=== PATIENT | male | born 1965 | race African-American/Black ===

== ENCOUNTER → 2021-07-07 08:07 | Outpatient (BNVA) | payer OTHER, SELFPAY | PROVIDERS: Visit Provider Orthopaedic Surgery ==

== ENCOUNTER 2021-07-15 10:53 | Day surgery (SDC) | payer OTHER, SELFPAY ==
[2021-07-15 11:15] VITALS: BMI 33.6
[2021-07-15 11:19] VITALS: BP 164/94; PULSE 99; RESP 18; TEMP 36.6; O2SAT 99
--- NOTE | 2021-07-15 13:37 | MHC.SHP ---
Pre-Procedural Eval Section A Date of Service: 07/15/21 The patient is an INPATIENT: No Changes since office visit: No Cold of Flu in the past 2 weeks, No New Medical Problems, No Changes in Medication and No Patient answered all questions The History & Physical has been completed within 30 days and I have reviewed it.: Yes Section B Chief Complaint: Trigger fingers Allergies: Allergies Allergy/AdvReac Type Severity Reaction Status Date / Time Eoklyuy-Etj-Qsc Reductase Allergy Severe SEVERE Verified 07/07/21 08:31 Inhibitor HIVES [[id number] REDUCTASE INHIBITOR] statins Allergy Unknown hives Uncoded 07/07/21 08:31 Plan I have reviewed the history and physical and performed a pertinent physical examination on my patient. No changes have occurred unless specified.
--- NOTE | 2021-07-15 13:38 | W.PM.OPN ---
Operative Note Operative Note Date of Service: 07/15/21 Narrative: Operative Note Preop diagnosis: 1. Right index finger Trigger finger 2. Right middle finger trigger finger Postop diagnosis: 1.? Right index finger Trigger finger 2. Right middle finger trigger finger 3. Right index finger retinacular cyst Procedure: 1. Right index finger A1 ed release 2. Right middle finger A1 ed release 3. Right index finger excision of retinacular cyst Surgeon: Catherine Diaz MD Anesthesia: local block using 1% lidocaine with epinephrine Findings: 5 mm diameter retinacular cyst found on volar surface of right index finger A1 ed. No locking or catching after A1 ed release EBL: Less than 5 mL Tourniquet time: None Specimens: Right index finger mass Complications: None Disposition: Brought to recovery room in stable condition Plan: Follow-up for 7-10 days for wound check and suture removal Check pathology Indications: The patient is 56 years old, with right index and middle finger trigger fingers that have been unresponsive to nonoperative management. The risks and benefits of operative treatment including but not limited to risk of damage to blood vessels, nerves, tendons, infection, persistent pain, persistent symptoms, recurrence or possible need for additional surgery were discussed with the patient and the patient wishes to proceed with surgery. Procedure: Once consent was obtained a local block was performed in the preop area using a combination of 1% lidocaine with epinephrine. The patient was then brought back to the operating suite and placed on the operative table in supine position. A tourniquet was applied to the proximal aspect of the left upper extremity and the limb was prepped and draped in a standard surgical fashion. Once assured that we had a good block, a 1.5 cm oblique incision was made centered over the A1 ed of the left index finger .? The incision was made through the skin to the subcutaneous tissues using a #15 blade.? Careful dissection was made down to the level of the A1 ed using tenotomy scissors, with care being taken to protect the nearby neurovascular structures.? A 5 mm volar retinacular cyst was appreciated on the volar surface of the A1 ed. This was carefully mobilized from surrounding tissue, excised and placed on the back table to be sent for histopathology. A longitudinal incision was made in the A1 ed 1st using a #15 blade, then using tenotomy scissors under direct visualization.? The A1 ed was noted to be thickened.? Following our A1 ed release, we no longer saw any locking or catching of the digit with flexion and extension. Once assured that we had a good block, a 1.5 cm oblique incision was made centered over the A1 ed of the left middle finger . The incision was made through the skin to the subcutaneous tissues using a #15 blade. Careful dissection was made down to the level of the A1 ed using tenotomy scissors, with care being taken to protect the nearby neurovascular structures. A longitudinal incision was made in the A1 ed 1st using a #15 blade, then using tenotomy scissors under direct visualization. The A1 ed was noted to be thickened. Following our A1 ed release, we no longer saw any locking or catching of the digit with flexion and extension. Once satisfied with our A1 ed release the wound was copiously irrigated with normal saline and hemostasis was obtained with a brief period of local pressure. The skin edges were reapproximated with some 5.0 nylon suture material and a sterile dressing was applied. The patient appears to have tolerated the procedure well and with no complications. All digits were well vascularized at the conclusion of the case.
[2021-07-15 14:10] VITALS: BP 152/85; PULSE 68; RESP 16; TEMP 37.4; O2SAT 97
== END 2021-07-15 14:15 | disposition home or self-care (01) ==
PROVIDERS: PCP Internal Medicine Medical Oncology; Visit Provider Orthopaedic Surgery
PROC: (CPT 26055; principal; 2021-07-15 14:00)
DX: M65.321 Trigger finger, right index finger (principal); M65.331 Trigger finger, right middle finger; M67.441 Ganglion, right hand; Z88.8 Allergy status to other drugs, medicaments and biological substances
CPT/HCPCS: 26055 ×2; 26160; 88304

== ENCOUNTER → 2021-07-26 14:22 | Outpatient (BNVA) | payer OTHER, SELFPAY | PROVIDERS: PCP Internal Medicine Medical Oncology; Visit Provider Orthopaedic Surgery ==

== ENCOUNTER 2021-08-12 10:49 | Day surgery (SDC) | payer OTHER, SELFPAY ==
[2021-08-12 11:15] VITALS: BP 164/94; PULSE 79; RESP 18; TEMP 36.8; O2SAT 98; BMI 32.8
[2021-08-12] MEDS: Lidocaine HCl 1%/Epi 1:100,000 20 ML VIAL 9 ML INFILTRATI (11:36)
--- NOTE | 2021-08-12 11:51 | MHC.SHP ---
Pre-Procedural Eval Section A Date of Service: 08/12/21 The patient is an INPATIENT: No Changes since office visit: No Cold of Flu in the past 2 weeks, No New Medical Problems, No Changes in Medication and No Patient answered all questions The History & Physical has been completed within 30 days and I have reviewed it.: Yes Section B Chief Complaint: Trigger Fingers Left Allergies: Allergies Allergy/AdvReac Type Severity Reaction Status Date / Time Qngvhvd-Stm-Prk Reductase Allergy Severe SEVERE Verified 07/26/21 14:42 Inhibitor HIVES [[id number] REDUCTASE INHIBITOR] statins Allergy Unknown hives Uncoded 07/07/21 08:31 Plan I have reviewed the history and physical and performed a pertinent physical examination on my patient. No changes have occurred unless specified.
--- NOTE | 2021-08-12 11:52 | W.PM.OPN ---
Operative Note Operative Note Date of Service: 08/12/21 Narrative: Operative Note Preop diagnosis: 1. Left index finger Trigger finger 2. Left middle finger trigger finger 3. Left ring finger trigger finger Postop diagnosis: Same Procedure: 1. Left index finger A1 ed release 2. Left middle finger A1 ed release 3. Left ring finger A1 ed release Surgeon: Catherine Diaz MD Anesthesia: local block using 1% lidocaine with epinephrine Findings: No locking or catching after A1 ed releases EBL: Less than 5 mL Tourniquet time: None Specimens: None Complications: None Disposition: Brought to recovery room in stable condition Plan: Follow-up for 7-10 days for wound check and suture removal Indications: The patient is 56 years old, with left index finger, middle finger, ring finger trigger fingers that have been unresponsive to nonoperative management. The risks and benefits of operative treatment including but not limited to risk of damage to blood vessels, nerves, tendons, infection, persistent pain, persistent symptoms, recurrence or possible need for additional surgery were discussed with the patient and the patient wishes to proceed with surgery. Procedure: Once consent was obtained a local block was performed in the preop area using a combination of 1% lidocaine with epinephrine. The patient was then brought back to the operating suite and placed on the operative table in supine position. A tourniquet was applied to the proximal aspect of the left upper extremity and the limb was prepped and draped in a standard surgical fashion. Once assured that we had a good block, a 1.5 cm oblique incision was made centered over the A1 ed of the left index finger . The incision was made through the skin to the subcutaneous tissues using a #15 blade. Careful dissection was made down to the level of the A1 ed using tenotomy scissors, with care being taken to protect the nearby neurovascular structures. A longitudinal incision was made in the A1 ed 1st using a #15 blade, then using tenotomy scissors under direct visualization. The A1 ed was noted to be thickened. Following our A1 ed release, we no longer saw any locking or catching of the digit with flexion and extension. Once assured that we had a good block, a 1.5 cm oblique incision was made centered over the A1 ed of the left middle finger . The incision was made through the skin to the subcutaneous tissues using a #15 blade. Careful dissection was made down to the level of the A1 ed using tenotomy scissors, with care being taken to protect the nearby neurovascular structures. A longitudinal incision was made in the A1 ed 1st using a #15 blade, then using tenotomy scissors under direct visualization. The A1 ed was noted to be thickened. Following our A1 ed release, we no longer saw any locking or catching of the digit with flexion and extension. Once assured that we had a good block, a 1.5 cm oblique incision was made centered over the A1 ed of the left ring finger . The incision was made through the skin to the subcutaneous tissues using a #15 blade. Careful dissection was made down to the level of the A1 ed using tenotomy scissors, with care being taken to protect the nearby neurovascular structures. A longitudinal incision was made in the A1 ed 1st using a #15 blade, then using tenotomy scissors under direct visualization. The A1 ed was noted to be thickened. Following our A1 ed release, we no longer saw any locking or catching of the digit with flexion and extension. Once satisfied with our A1 ed release the wound was copiously irrigated with normal saline and hemostasis was obtained with a brief period of local pressure. The skin edges were reapproximated with some 5.0 nylon suture material and a sterile dressing was applied. The patient appears to have tolerated the procedure well and with no complications. All digits were well vascularized at the conclusion of the case.
[2021-08-12 13:15] VITALS: BP 145/90; PULSE 76; RESP 18; TEMP 36.9; O2SAT 98
== END 2021-08-12 13:35 | disposition home or self-care (01) ==
PROVIDERS: PCP Internal Medicine Medical Oncology; Visit Provider Orthopaedic Surgery
PROC: (CPT 26055; principal; 2021-08-12 12:20)
DX: M65.322 Trigger finger, left index finger (principal); M65.332 Trigger finger, left middle finger; M65.342 Trigger finger, left ring finger
CPT/HCPCS: 26055 ×3

== ENCOUNTER → 2021-08-23 11:23 | Outpatient (BNVA) | payer OTHER, SELFPAY | PROVIDERS: PCP Internal Medicine Medical Oncology; Visit Provider Orthopaedic Surgery ==

== ENCOUNTER 2021-10-04 08:04 | Outpatient (REF) | payer OTHER, SELFPAY ==
[2021-10-04 08:27] LABS: MANUAL DIFF FLAG NO
[2021-10-04 08:50] LABS: Basophils Percent Auto 0.5 % (0-2); Eosinophils Absolute Auto 0.2 X10*3/uL (0.0-0.4); Hematocrit 42.1 % (42.0-52.0); Hemoglobin 13.7 g/dl (14.0-18.0); Imm Gran Abs Auto 0.01 X10*3/uL (0.00-0.03); Imm Gran Pct Auto 0.3 % (0.0-0.4); Lymphocytes Absolute Auto 1.6 X10*3/uL (1.2-4.9); Lymphocytes Percent Auto 40.9 % (20-40); Mean Corpuscular HGB Conc 32.5 g/dl (31.0-36.0); Mean Corpuscular Hemoglobin 29.9 pg (27.0-33.0); Mean Corpuscular Volume 91.9 fL (80.0-98.0); Monocytes Absolute Auto 0.7 X10*3/uL (0.1-1.2); Monocytes Percent Auto 17.4 % (2-11); Neutrophils Absolute Auto 1.5 x10*3/uL (2.0-8.3); Neutrophils Percent Auto 36.9 % (45-73); Platelet Count 208 X10*3/uL (160-400); Red Blood Count 4.58 X10*6/uL (4.60-5.80); Red Cell Distribution Width 12.9 % (11.0-16.0)
[2021-10-04 09:25] LABS: Alanine Aminotransferase 31 U/L (0-40); Albumin Level 4.2 g/dL (3.5-5.0); Alkaline Phosphatase 65 U/L (39-117); Anion Gap 10 (12-20); Aspartate Amino Transferase 28 U/L (5-37); Blood Urea Nitrogen 13 mg/dL (9-16); Calcium 9.2 mg/dL (8.4-10.2); Carbon Dioxide 27 mmol/L (22-29); Chloride 108 mmol/L (96-108); Cholesterol 264 mg/dL; Estimated Glomerular Filt Rate 53; Glucose Fasting 107 mg/dL (60-99); HDL Cholesterol 54 mg/dL; LDL Cholesterol Calculated 190 mg/dl; Potassium 4.4 mmol/L (3.3-5.1); Sodium 141 mmol/L (135-145); Total Protein 7.1 g/dL (6.5-8.0); Triglycerides 103 mg/dL
[2021-10-04 09:45] LABS: Prostate Specific Antigen 2.51 ng/mL (<0.05-4.0)
== END 2021-10-04 08:05 | disposition home or self-care (01) ==
LOC: HO.LAB 08:04
PROVIDERS: PCP Internal Medicine Medical Oncology; Visit Provider Internal Medicine Medical Oncology
DX: Z00.00 Encounter for general adult medical examination without abnormal findings (principal); Z12.5 Encounter for screening for malignant neoplasm of prostate; M54.31 Sciatica, right side; M51.36 Other intervertebral disc degeneration, lumbar region; K21.9 Gastro-esophageal reflux disease without esophagitis
CPT/HCPCS: 36415; 80053; 80061; 84153; 85025

== ENCOUNTER → 2022-03-02 10:44 | Outpatient (BNVA) | payer OTHER, SELFPAY | PROVIDERS: PCP Internal Medicine Medical Oncology; Visit Provider Orthopaedic Surgery | DX: Z13.89 Encounter for screening for other disorder (principal) ==

== ENCOUNTER 2022-03-21 08:45 | Day surgery (SDC) | payer OTHER, SELFPAY ==
[2022-03-21 08:54] VITALS: BP 160/82; PULSE 83; RESP 16; TEMP 37.1; O2SAT 99; BMI 33.6
[2022-03-21 10:21] VITALS: BP 146/84; PULSE 76; RESP 18; TEMP 37.7; O2SAT 99
--- NOTE | 2022-03-21 10:42 | MHC.SHP ---
Pre-Procedural Eval Section A Date of Service: 03/21/22 The patient is an INPATIENT: No Changes since office visit: No Cold of Flu in the past 2 weeks, No New Medical Problems, No Changes in Medication and No Patient answered all questions The History & Physical has been completed within 30 days and I have reviewed it.: Yes Section B Chief Complaint: trigger finger Allergies: Allergies Allergy/AdvReac Type Severity Reaction Status Date / Time Rsoljea-UMQ-HkM Reductase Allergy Severe SEVERE Verified 03/02/22 10:47 Inhibitor HIVES [[id number]-GRX-IWM REDUCTASE INHIBITOR] statins Allergy Unknown hives Uncoded 07/07/21 08:31 Plan I have reviewed the history and physical and performed a pertinent physical examination on my patient. No changes have occurred unless specified.
--- NOTE | 2022-03-21 10:43 | P.OP_ITS ---
Operative Note Operative Note Date of Service: 03/21/22 Narrative: Operative Note Preop diagnosis: 1. Right ring finger Trigger finger Postop diagnosis: 1. right ring finger Trigger finger Procedure: 1. right ring finger A1 ed release Surgeon: Catherine Diaz MD Anesthesia: local block using 1% lidocaine with epinephrine Findings: No locking or catching after A1 ed release EBL: Less than 5 mL Tourniquet time: None Specimens: None Complications: None Disposition: Brought to recovery room in stable condition Plan: Follow-up for 10-14 days for wound check and suture removal Indications: The patient is 56 years old, with a right ring finger trigger finger that has been unresponsive to nonoperative management. The risks and benefits of operative treatment including but not limited to risk of damage to blood vessels, nerves, tendons, infection, persistent pain, persistent symptoms, recurrence or possible need for additional surgery were discussed with the patient and the patient wishes to proceed with surgery. Procedure: Once consent was obtained a local block was performed in the preop area using a combination of 1% lidocaine with epinephrine. The patient was then brought back to the operating suite and placed on the operative table in supine position. A tourniquet was applied to the proximal aspect of the right upper extremity and the limb was prepped and draped in a standard surgical fashion. Once assured that we had a good block, a 1.5 cm oblique incision was made centered over the A1 ed of the right ring finger . The incision was made through the skin to the subcutaneous tissues using a #15 blade. Careful dissection was made down to the level of the A1 ed using tenotomy scissors, with care being taken to protect the nearby neurovascular structures. A longitudinal incision was made in the A1 ed 1st using a #15 blade, then using tenotomy scissors under direct visualization. The A1 ed was noted to be thickened. Following our A1 ed release, we no longer saw any locking or catching of the digit with flexion and extension. Once satisfied with our A1 ed release the wound was copiously irrigated with normal saline and hemostasis was obtained with a brief period of local pressure. The skin edges were reapproximated with some 5.0 nylon suture material and a sterile dressing was applied. The patient appears to have tolerated the procedure well and with no comp lications. All digits were well vascularized at the conclusion of the case.
== END 2022-03-21 10:49 | disposition home or self-care (01) ==
PROVIDERS: PCP Internal Medicine Medical Oncology; Visit Provider Orthopaedic Surgery
PROC: (CPT 26055; principal; 2022-03-21 10:20)
DX: M65.341 Trigger finger, right ring finger (principal); Z88.8 Allergy status to other drugs, medicaments and biological substances
CPT/HCPCS: 26055; J0171

== ENCOUNTER → 2022-04-05 09:37 | Outpatient (BNVA) | payer OTHER, SELFPAY | PROVIDERS: PCP Internal Medicine Medical Oncology; Visit Provider Orthopaedic Surgery | DX: M65.341 Trigger finger, right ring finger (principal) ==

== ENCOUNTER → 2022-04-08 08:01 | Outpatient (BNVA) | payer OTHER, SELFPAY | PROVIDERS: PCP Internal Medicine Medical Oncology; Visit Provider Physician Assistant | DX: Z13.89 Encounter for screening for other disorder (principal) ==

== ENCOUNTER 2022-08-29 06:54 | Outpatient (REF) | payer OTHER, SELFPAY ==
[2022-08-29 06:58] LABS: MANUAL DIFF FLAG NO
[2022-08-29 07:14] LABS: Basophils Percent Auto 0.7 % (0-2); Eosinophils Absolute Auto 0.2 X10*3/uL (0.0-0.4); Eosinophils Percent Auto 3.7 % (0-4); Hemoglobin 14.3 g/dl (14.0-18.0); Imm Gran Abs Auto 0.01 X10*3/uL (0.00-0.03); Imm Gran Pct Auto 0.2 % (0.0-0.4); Lymphocytes Absolute Auto 2.3 X10*3/uL (1.2-4.9); Lymphocytes Percent Auto 42.8 % (20-40); Mean Corpuscular HGB Conc 32.5 g/dl (31.0-36.0); Mean Corpuscular Volume 92.4 fL (80.0-98.0); Mean Platelet Volume 9.3 fL (9.4-12.4); Monocytes Absolute Auto 0.5 X10*3/uL (0.1-1.2); Monocytes Percent Auto 8.3 % (2-11); Neutrophils Absolute Auto 2.4 x10*3/uL (2.0-8.3); Neutrophils Percent Auto 44.3 % (45-73); Platelet Count 268 X10*3/uL (160-400); Red Blood Count 4.76 X10*6/uL (4.60-5.80); Red Cell Distribution Width 12.7 % (11.0-16.0); White Blood Count 5.4 X10*3/uL (4.8-10.8)
[2022-08-29 08:01] LABS: Alanine Aminotransferase 21 U/L (0-40); Albumin Level 4.4 g/dL (3.5-5.0); Alkaline Phosphatase 62 U/L (39-117); Anion Gap 12 (12-20); Aspartate Amino Transferase 20 U/L (5-37); Bilirubin Total 0.8 mg/dL (0.0-1.0); Blood Urea Nitrogen 16 mg/dL (9-16); Calcium 9.4 mg/dL (8.4-10.2); Carbon Dioxide 27 mmol/L (22-29); Chloride 107 mmol/L (96-108); Cholesterol 278 mg/dL; Estimated Glomerular Filt Rate 60; Glucose Fasting 96 mg/dL (60-99); HDL Cholesterol 52 mg/dL; LDL Cholesterol Calculated 190 mg/dl; Sodium 142 mmol/L (135-145); Total Protein 7.2 g/dL (6.5-8.0); Triglycerides 180 mg/dL
[2022-08-29 08:11] LABS: Prostate Specific Antigen 2.43 ng/mL (<0.05-4.0)
== END 2022-08-29 06:55 | disposition home or self-care (01) ==
LOC: HO.LAB 06:54
PROVIDERS: PCP Internal Medicine Medical Oncology; Visit Provider Internal Medicine Medical Oncology
DX: Z00.00 Encounter for general adult medical examination without abnormal findings (principal); Z12.5 Encounter for screening for malignant neoplasm of prostate; M54.31 Sciatica, right side; M51.36 Other intervertebral disc degeneration, lumbar region; K21.9 Gastro-esophageal reflux disease without esophagitis
CPT/HCPCS: 36415; 80053; 80061; 84153; 85025

== ENCOUNTER 2022-11-07 18:45 | Outpatient (REF) | payer OTHER, SELFPAY ==
--- NOTE | ~2022-11-07 | MR_ITS ---
EXAMINATION: MR CERVICAL SPINE WITHOUT CONTRAST CLINICAL INFORMATION: Unsteadiness, postop November 2019 COMPARISON: MRI cervical spine 11/23/2018 TECHNIQUE: MRI of the cervical spine was obtained using routine sequences without contrast. FINDINGS: Postsurgical changes from C5-C6 anterior cervical discectomy and fusion. Cervical straightening No suspicious marrow signal or focal osseous lesion. The vertebral body heights are maintained. Multilevel mild degenerative disc space height loss. The cervical spinal cord is normal in caliber and signal Limited evaluation of the soft tissues of the neck without demonstrated abnormalities. The flow voids of the major cervical vessels are maintained. Normal appearance of the cervicomedullary junction and visualized posterior fossa SPINAL LEVELS: C2-C3: Left facet arthropathy and mild left neural foraminal narrowing. No significant spinal canal stenosis. C3-C4: Small central disc protrusion and left greater than right facet arthropathy. No significant spinal canal or neural foraminal narrowing C4-C5: Mild left and severe right facet arthropathy with right facet fusion. Right eccentric disc osteophyte complex stable mild to moderate right neural foraminal narrowing. No significant spinal canal stenosis. C5-C6: Postsurgical changes. Endplate spurring and left greater than right uncovertebral hypertrophy. Stable severe left and mild to moderate right neural foraminal narrowing. No significant spinal canal stenosis. C6-C7: Disc osteophyte complex and mild facet and uncovertebral hypertrophy. No significant spinal canal stenosis. Mild left greater than right neural foraminal narrowing. C7-T1: No significant spinal canal or neural foraminal narrowing MR/MR cervical spine wo con IMPRESSION: Postsurgical changes from C5-C6 ACDF. The cervical spinal canal is widely patent. No cord compression or cord signal abnormality. Multilevel neural foraminal narrowing as detailed above appears stable compared to MRI from 2019, worst and severe on the left at C5-C6
== END 2022-11-07 18:46 | disposition home or self-care (01) ==
LOC: HO.MRI 18:45
PROVIDERS: Visit Provider Psychiatry & Neurology Neurology
DX: R26.9 Unspecified abnormalities of gait and mobility (principal); Z98.890 Other specified postprocedural states
CPT/HCPCS: 72141

== ENCOUNTER → 2022-11-14 09:55 | Outpatient (REF) | payer OTHER, SELFPAY | LOC: HO.SL 09:55 | PROVIDERS: PCP Internal Medicine Medical Oncology; Visit Provider Psychiatry & Neurology Neurology | DX: G47.10 Hypersomnia, unspecified (principal); R06.83 Snoring | CPT/HCPCS: 95806 ==

== ENCOUNTER → 2023-04-18 08:49 | Outpatient (BNVA) | payer OTHER, SELFPAY | PROVIDERS: PCP Internal Medicine Medical Oncology; Visit Provider Orthopaedic Surgery ==

== ENCOUNTER 2023-04-20 06:34 | Outpatient (REF) | payer OTHER, SELFPAY ==
--- NOTE | ~2023-04-20 | XR_ITS ---
EXAMINATION: XR FOOT, LEFT CLINICAL INFORMATION: Pain COMPARISON: Previous x-ray from 2013 TECHNIQUE: AP, lateral, and oblique views of the left foot. FINDINGS: Bone alignment is normal. No fracture or dislocation. Question postsurgical osteotomy change of the first metatarsal head. Mild osteoarthritis at the first MTP joint with joint space narrowing and osteophyte formation. Joint spaces are otherwise normal. Soft tissues are normal. 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
== END 2023-04-20 06:35 | disposition home or self-care (01) ==
LOC: HO.HOSX 06:34
PROVIDERS: Visit Provider Physician Assistant
DX: M19.072 Primary osteoarthritis, left ankle and foot (principal)
CPT/HCPCS: 73630

== ENCOUNTER 2023-05-01 11:51 | Day surgery (SDC) | payer OTHER, SELFPAY ==
[2023-05-01 10:05] VITALS: BMI 35.1
[2023-05-01 12:21] VITALS: BP 160/79; PULSE 78; RESP 20; TEMP 36.6; O2SAT 98
--- NOTE | 2023-05-01 13:26 | P.OP_ITS ---
Operative Note Operative Note Date of Service: 05/01/23 Narrative: Operative Note Preop diagnosis: 1. left small finger Trigger finger Postop diagnosis: 1. left small finger Trigger finger Procedure: 1. left small finger A1 ed release Surgeon: Catherine Diaz MD Anesthesia: local block using 1% lidocaine with epinephrine Findings: No locking or catching after A1 ed release EBL: Less than 5 mL Tourniquet time: None Specimens: None Complications: None Disposition: Brought to recovery room in stable condition Plan: Follow-up for 10-14 days for wound check and suture removal Indications: The patient is 57 years old, with a left small finger trigger finger that has been unresponsive to nonoperative management. The risks and benefits of operative treatment including but not limited to risk of damage to blood vessels, nerves, tendons, infection, persistent pain, persistent symptoms, recurrence or possible need for additional surgery were discussed with the patient and the patient wishes to proceed with surgery. Procedure: Once consent was obtained a local block was performed in the preop area using a combination of 1% lidocaine with epinephrine. The patient was then brought back to the operating suite and placed on the operative table in supine position. The left upper extremity was prepped and draped in a standard surgical fashion. Once assured that we had a good block, a 1.5 cm oblique incision was made ce ntered over the A1 ed of the left small finger . The incision was made through the skin to the subcutaneous tissues using a #15 blade. Careful dissection was made down to the level of the A1 ed using tenotomy scissors, with care being taken to protect the nearby neurovascular structures. A longitudinal incision was made in the A1 ed 1st using a #15 blade, then using tenotomy scissors under direct visualization. The A1 ed was noted to be thickened. Following our A1 ed release, we no longer saw any locking or catching of the digit with flexion and extension. Once satisfied with our A1 ed release the wound was copiously irrigated with normal saline and hemostasis was obtained with a brief period of local pressure. The skin edges were reapproximated with some 5.0 nylon suture material and a sterile dressing was applied. The patient appears to have tolerated the procedure well and with no complications. All digits were well vascularized at the conclusion of the case.
--- NOTE | 2023-05-01 13:26 | MHC.SHP ---
Pre-Procedural Eval Section A Date of Service: 05/01/23 The patient is an INPATIENT: No Changes since office visit: No Cold of Flu in the past 2 weeks, No New Medical Problems, No Changes in Medication and No Patient answered all questions The History & Physical has been completed within 30 days and I have reviewed it.: Yes Section B Chief Complaint: Trigger finger, left little finger Allergies: Allergies Allergy/AdvReac Type Severity Reaction Status Date / Time Jzkawlm-XJF-SjV Reductase Allergy Severe SEVERE Verified 04/20/23 09:09 Inhibitor HIVES [[id number] REDUCTASE INHIBITOR] statins Allergy Unknown hives Uncoded 04/20/23 09:09 Plan I have reviewed the history and physical and performed a pertinent physical examination on my patient. No changes have occurred unless specified. Time Spent With Patient Time: Total time managing care of this patient today ____ minutes.
== END 2023-05-01 14:40 | disposition home or self-care (01) ==
PROVIDERS: PCP Internal Medicine Medical Oncology; Visit Provider Orthopaedic Surgery
PROC: (CPT 26055; principal; 2023-05-01 14:00)
DX: M65.352 Trigger finger, left little finger (principal); M54.50 Low back pain, unspecified; R06.83 Snoring; G47.10 Hypersomnia, unspecified; Z88.8 Allergy status to other drugs, medicaments and biological substances; Z98.890 Other specified postprocedural states
CPT/HCPCS: 26055; J0171

== ENCOUNTER 2023-05-15 07:37 | Outpatient (REF) | payer OTHER, SELFPAY ==
[2023-05-15 07:44] LABS: MANUAL DIFF FLAG NO
[2023-05-15 08:16] LABS: Basophils Absolute Auto 0.1 X10*3/uL (0.0-0.2); Basophils Percent Auto 0.9 % (0-2); Eosinophils Absolute Auto 0.2 X10*3/uL (0.0-0.4); Eosinophils Percent Auto 3.8 % (0-4); Hematocrit 43.1 % (42.0-52.0); Hemoglobin 14.4 g/dl (14.0-18.0); Imm Gran Abs Auto 0.01 X10*3/uL (0.00-0.03); Imm Gran Pct Auto 0.2 % (0.0-0.4); Lymphocytes Absolute Auto 2.7 X10*3/uL (1.2-4.9); Lymphocytes Percent Auto 42.9 % (20-40); Mean Corpuscular HGB Conc 33.4 g/dl (31.0-36.0); Mean Corpuscular Hemoglobin 30.5 pg (27.0-33.0); Mean Corpuscular Volume 91.3 fL (80.0-98.0); Mean Platelet Volume 9.2 fL (9.4-12.4); Monocytes Absolute Auto 0.5 X10*3/uL (0.1-1.2); Monocytes Percent Auto 7.7 % (2-11); Neutrophils Absolute Auto 2.8 x10*3/uL (2.0-8.3); Neutrophils Percent Auto 44.5 % (45-73); Platelet Count 260 X10*3/uL (160-400); Red Blood Count 4.72 X10*6/uL (4.60-5.80); Red Cell Distribution Width 12.6 % (11.0-16.0); White Blood Count 6.4 X10*3/uL (4.8-10.8)
[2023-05-15 08:44] LABS: Alanine Aminotransferase 14 U/L (0-40); Albumin Level 4.2 g/dL (3.5-5.0); Alkaline Phosphatase 60 U/L (39-117); Anion Gap 12 (12-20); Aspartate Amino Transferase 16 U/L (5-37); Bilirubin Total 1.3 mg/dL (0.0-1.0); Blood Urea Nitrogen 17 mg/dL (9-16); Calcium 9.9 mg/dL (8.4-10.2); Carbon Dioxide 27 mmol/L (22-29); Chloride 108 mmol/L (96-108); Cholesterol 295 mg/dL; Estimated Glomerular Filt Rate 54; Glucose Fasting 102 mg/dL (60-99); HDL Cholesterol 49 mg/dL; LDL Cholesterol Calculated 220 mg/dl; Potassium 4.1 mmol/L (3.3-5.1); Sodium 143 mmol/L (135-145); Total Protein 7.5 g/dL (6.5-8.0); Triglycerides 132 mg/dL
== END 2023-05-15 07:38 | disposition home or self-care (01) ==
LOC: HO.LAB 07:37
PROVIDERS: Visit Provider Internal Medicine Medical Oncology
DX: Z12.5 Encounter for screening for malignant neoplasm of prostate (principal); E66.9 Obesity, unspecified; K21.9 Gastro-esophageal reflux disease without esophagitis; N40.0 Benign prostatic hyperplasia without lower urinary tract symptoms
CPT/HCPCS: 36415; 80053; 80061; 84153; 85025

== ENCOUNTER → 2023-05-17 09:19 | Outpatient (BNVA) | payer OTHER, SELFPAY | PROVIDERS: PCP Internal Medicine Medical Oncology; Visit Provider Orthopaedic Surgery ==

== ENCOUNTER 2024-11-01 06:59 | Outpatient (REF) | payer OTHER, SELFPAY ==
[2024-11-01 07:18] LABS: MANUAL DIFF FLAG NO
[2024-11-01 08:32] LABS: Basophils Absolute Auto 0.1 X10*3/uL (0.0-0.2); Basophils Percent Auto 0.8 % (0-2); Eosinophils Absolute Auto 0.2 X10*3/uL (0.0-0.4); Eosinophils Percent Auto 3.6 % (0-4); Hematocrit 43.2 % (42.0-52.0); Hemoglobin 14.6 g/dl (14.0-18.0); Imm Gran Abs Auto 0.02 X10*3/uL (0.00-0.03); Imm Gran Pct Auto 0.3 % (0.0-0.4); Lymphocytes Absolute Auto 2.3 X10*3/uL (1.2-4.9); Lymphocytes Percent Auto 36.8 % (20-40); Mean Corpuscular HGB Conc 33.8 g/dl (31.0-36.0); Mean Corpuscular Hemoglobin 30.8 pg (27.0-33.0); Mean Corpuscular Volume 91.1 fL (80.0-98.0); Mean Platelet Volume 9.3 fL (9.4-12.4); Monocytes Absolute Auto 0.5 X10*3/uL (0.1-1.2); Monocytes Percent Auto 8.4 % (2-11); Neutrophils Absolute Auto 3.2 x10*3/uL (2.0-8.3); Neutrophils Percent Auto 50.1 % (45-73); Platelet Count 248 X10*3/uL (160-400); Red Blood Count 4.74 X10*6/uL (4.60-5.80); Red Cell Distribution Width 12.7 % (11.0-16.0); White Blood Count 6.3 X10*3/uL (4.8-10.8)
[2024-11-01 08:49] LABS: Alanine Aminotransferase 37 U/L (0-40); Albumin Level 4.4 g/dL (3.5-5.0); Alkaline Phosphatase 68 U/L (39-117); Anion Gap 12 (12-20); Aspartate Amino Transferase 29 U/L (5-37); Bilirubin Total 1.3 mg/dL (0.0-1.0); Blood Urea Nitrogen 13 mg/dL (9-16); Calcium 10.3 mg/dL (8.4-10.2); Carbon Dioxide 27 mmol/L (22-29); Chloride 108 mmol/L (96-108); Cholesterol 263 mg/dL (<200); Estimated Glomerular Filt Rate 56; Glucose Fasting 108 mg/dL (60-99); HDL Cholesterol 55 mg/dL (>40); LDL Cholesterol Calculated 177 mg/dL (<100); Potassium 4.2 mmol/L (3.3-5.1); Sodium 143 mmol/L (135-145); Total Protein 7.7 g/dL (6.5-8.0); Triglycerides 158 mg/dL (<150)
[2024-11-01 09:08] LABS: Prostate Specific Antigen 3.72 ng/mL (<0.05-4.0)
--- OUTSIDE RECORDS SUMMARY | 2024-11-06 04:40 | XMS_ITS ---
Author Organization Rusty Ramos III, MD Address [address] [facility] [place] [address] Care Team Providers Care Pomologist Name Role Phone [facility] ider Unavailable Rusty Ramos Unavailable [phone] Allergies Allergen (clinical drug ingredient) Drug/Non Drug Allergy documented on EMR Reaction Allergy Type Onset Date Status Substance with 0-mtzzpdh-8-methylgluta ryl-coenzyme A reductase inhibitor mechanism of action (substance) Statins hives Drug Allergy Active Results Component Value Reference Range Notes URINE DIP STICK Reviewed date:11/02/2023 02:17:55 PM Interpretation: Performing Lab: Notes/Report: SG 1.005 1.005 - 1.025 pH 5.0 5.0 - 9.0 CHAR Negative Negative - NIT Negative Negative - PRO 15 Negative - Trace GLU Negative Negative - KET Negative Negative - UBG 0.2 0.1 - 1.8 VARINDER Negative 0.2 - 1.3 BLD Negative Negative - REASON FOR VISIT Annual Exam Medications Medication SIG (Take, Route, Frequency, Duration) Notes Start Date End Date Status Ibuprofen 800 MG TAKE 1 TABLET BY EREN TH EVERY 6 HOURS NEEDED WITH FOOD OR MILK Active Ezetimibe 10 MG Oral Acti ve Losartan Potassium 50 MG Oral Active Social History Tobacco Use: Social History Observation Description Date Details (start date - stop date) Never Smoker NA - NA Sex Assigned At : Social History Observation Description Sex Assigned At Male Tobacco Use/Smoking Question Answer Notes Patient is a nonsmoker Additional Findings: Tobacco Non-User Aggressive non-smoker Alcohol Screen Question Answer Notes Did you have a drink containing alcohol in the p ast year? No Points 0 Interpretation Negative Vital Signs Temperature 97.2 degrees Fahrenheit 11/02/20 23 Blood pressure systolic 138 mm Hg 11/02/20 23 Blood pressure diastolic 80 mm Hg 023 Heart Rate 83 /min 11/02/2023 Height 67 in 11/02/2023 Weight 220 lbs 11/02/2023 BMI 34.45 kg/m2 11/02/2023 Encounters Encounter Location Date Provider Diagnosis Rusty Ramos III, MD [address] [place] [address] [place] [address] 11/02/2023 Rusty Ramos Obesity (BMI 30.0-34 .9) E66.9 ; Annual physical exam Z00.00 ; BPH (benign prostatic hyperplasia) N40.0 ; Mixed hyperlipidemia E78.2 ; GERD without esophagitis K21.9 ; Cervical radiculopathy M54.12 ; Degenerative disc disease at L5-S1 level M51.36 and Sciatica of right side M54.31 Assessments Encounter Date Diagnosis (ICD Code) Assessment Notes Treat ment Notes Treatment Clinical Notes 11/02/2023 Obesity (BMI 30.0-34.9) (ICD-10 - E66.9) His body mass index is stable at 34. We discussed diet and nutrition. We made a plan for him to lose weight at a rate of one half of a pound per week. A diet restricted in fat calories and sodium combined with regular physical activity. 11/02/2023 Annual physical exam (ICD-10 - Z00.00) He remains healthy and well with no new complaints. No change in his regimen was needed. Comprehensive blood work was ordered. 11/02/2023 BPH (benign prostati c hyperplasia) (ICD-10 - N40.0) He rises from sleep once or maybe twice a night to urinate depending upon fluid intake. We have discussed lifestyle modification as a way to reduce nocturnal urinating. 11/02/2023 Mixed hyperlipidemia (ICD-10 - E78.2) Comprehensive blood work with a fasting lipid profile has been ordered to be done in the next week. 11/02/2023 GERD without esophagitis (ICD-10 - K21.9) His reflux symptoms are well controlled with omeprazole and antacids. No change in his regimen was needed today. 11/02/2023 Cervical radiculopathy (ICD-10 - M54.12) His neck pain has resolved and he will avoid heavy lifting. 11/02/2023 Degenerative disc disease at L5-S1 level (ICD-10 - M51.36) He continues to have intermittent pain in his low back that radiates down his leg. He is avoiding heavy lifting. I have recommended muscle strengthening physical therapy and regular follow-up. 11/02/2023 Sciatica of right side (ICD-10 - M54.31) The sciatica has resolved and is no longer present. Plan Of Treatment Medication Medication Name Sig Start Date Stop Date Notes Ibuprofen 800 MG TAKE 1 TABLET BY EREN TH EVERY 6 HOURS NEEDED WITH FOOD OR MILK Ezetimibe 10 MG Oral Losartan Potassium 50 MG Oral Pending Test Test Name Order Date PROFILE, FASTING (COMPREHENSIVE METABOLI C) 11/02/2023 PSA, TOTAL 11/02/2023 CBC WITH AUTO DIFF 11/02/2023 Lipid Panel 11/02/2023 Next Appt Details Follow Up: 1 Year, Reason: O V, Annual Exam Provider Name:Rusty Ramos, 11/19/2024 09:15:00 AM, [address] [place] [address] [address], [place], [address], Provider Name:Rusty Ramos, 11/06/2025 10:00:00 AM, [address] [place] [address] [address], [place], [address], Progress Notes * Dustin WEEKSDOB:1965 (58 yo M)Acc No.[id number]:11/02/2023 Progress Notes Patient:?Handy Weeksny Provider:?Rusty Ramos MD :1965???Age:58 Y???Sex:Male Gautam e:11/02/2023 Address:[address] [place] [address] [place] [id number] Pcp:[facility] enter Subjective: * Chief Complaints: * ???Annual Exam * HPI: ???Depression Screening:?PHQ-9?Little interest or pleasure in doing things?Not at all ?Feeling down, depressed, or hopeless?Not at all ?Trouble falling or staying asleep, or sleeping too much?Not at all ?Feeling tired or having little energy?Not at all ?Poor appetite or overeating?Not at all ?Feeling bad about yourself or that you are a failure, or have let yourself or your family down?Not at all ?Trouble concentrating on things, such as reading the newspaper or watching television?Not at all ?Moving or speaking so slowly that other people could have noticed; or the opposite, being so fidgety or restless that you have been moving around a lot more than usual?Not at all ?Thoughts that you would be better off or of hurting yourself in some way?Not at all ?Total Score?0 ? He returns to the office at the age of 58 for an annual physical examination .He says he is feeling healthy and well. He is working full-time. He has no new complaints. His sciatica has not returned. He has occasional neck pain, but it is improving. He is trying to lose weight through healthy diet and regular physical activity. The left knee pain has resolved. His esophageal reflux symptoms have been well controlled with talk-eys-exwiiwe medication. His ataxia has resolved. He rises from sleep once a night to urinate. We discussed lifestyle modification as a way to reduce nocturia. ???COVID-19 Screening:?Questions?Have you experienced fever, chills, cough, sore throat, shortness of breath, difficulty breathing, muscle aches, loss of taste or smell??No ?Have you been exposed to the virus within the last 10 days??No ?Have you travelled internationally in the last 10 days??No ?Have you been exposed to COVID-19 in the past??No * ROS:?General/Constitutional:?pain?only normal aches and pains.?Chills?denies.?Fatigue?admits.?Fever?denies.?ENT:?Decreased hearing?denies.?Respiratory:?Cough?denies.?Cardiovascular:?Chest pain with exertion?denies.?Dyspnea on exertion?denies.?Shortness of breath?denies.?Gastrointestinal:?Constipation?occasional.?Decreased appetite?denies.?Diarrhea?denies.?Heartburn?controlled with medications.?Nausea?denies.?Rectal bleeding?denies.?Vomiting?denies.?Hematology:?bruising?denies.?petechiae?denies.?Swollen glands?none have been noted.?Genitourinary:?Frequent urination?once a night.?Musculoskeletal:?Muscle aches?denies.?Painful joints?denies.?Sciatica?denies.?Weakness?denies.?Skin:?Itching?denies.?Rash?denies.?Skin lesion(s)?denies.?Neurologic:?Difficulty speaking?denies.?Dizziness?denies.?Headache?denies.?Low back pain?denies.?Psychiatric:?Depressed mood?denies.? * Medical History:? * Surgical History:?L knee art hroscopic surgery L great toe crushed with workout R shoulder repair re: dislocation 2008bilateral carpal tunnel surgery 2017colonoscopy for hematochezia, age 38, negative findings [id number] herniated disk removal 11/2019left and right trigger finger surgery 08/2021Ganglion cyst removed from finger 9/2021Left hand Pinky Surgery 04/2023 * Hospitalization/Major Diagno stic Procedure:?Denies Past Hospitalization * Family History:?Father: cortney osborne 78 yrs, Alcohol excess.?Mother: alive 75 yrs, Adult-onset diabetes, diagnosed with DM, Hyperlipidemia, HTN.?2 brother(s) , 1 sister(s) - healthy. 2 son(s) , 1 daughter(s) - healthy. .? He has 2 brothers and 1 sister who are alive and well. Both of his parents are alive. He has 3 children, one of whom is adopted and one of whom has allergies to Peanuts. He has no personal or family history of sickle cell trait. * Social History:?Tobacco Use:?Tobacco Use/Smoking?Patient is a?nonsmoker ?Additional Findings: Tobacco Non-User?Aggressive non-smoker ???Drugs/Alcohol:?Drugs?Have you used drugs other than those for medical reasons in the past 12 months??No ?Alcohol Screen?Did you have a drink containing alcohol in the past year??No ?Points?0 ?Interpretation?Negative ???Miscellaneous:?no Domestic violence. ?Marital status: . ???He was born in [place], [place] and came to [facility] at the age of 8. He has been to Eunice for 35 years and they have 3 children, Kylah 35, Dustin 33 and Tristian, who is adopted,. 16. They have 5 healthy grandchildren. 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 His only toxic exposure was to chemicals found in illegal methamphetamine laboratories. * Medications:?TakingIbuprofen 800 MG Tablet TAKE 1 TABLET BY MOUTH EVERY 6 HOURS NEEDED WITH FOOD OR MILK Losartan Potassium 50 MG Tablet Oral Ezetimibe 10 MG Tablet Oral Taking Ibuprofen 800 MG Tablet TAKE 1 TABLET BY MOUTH EVERY 6 HOURS NEEDED WITH FOOD OR MILK Taking Losartan Potassium 50 MG Tablet Oral Taking Ezetimibe 10 MG Tablet Oral DiscontinuedLisinopril 5 MG Tablet Oral Medication List reviewed and reconciled with the patientDiscontinued Lisinopril 5 MG Tablet Oral Medication List reviewed and reconciled with the patient * Allergies:?Statins: hivesno[ Allergies Verified] Objective: * Vitals:?Ht: 67, Wt: 220, BMI :34.45, BP: 138/80, HR: 83, Temp: 97.2, Wt-k.79. * Examination: ???General Examination: ?GENERAL APPEARANCE:?pleasant, well nourished, well developed, in no acute distress, calm and relaxed , obese , man.?HEAD:?atraumatic, normocephalic.?EYES:?eomi, perrla, anicteric, conjugate.?EARS:?normal.?NOSE:?septum intact.?ORAL CAVITY:?normal, unremarkable.?NECK/THYROID:?no jugular venous distention, no carotid bruit, thyroid normal.?LYMPH NODES:?no enlarged lymph nodes,spleen normal.?SKIN:?no suspicious lesions, anicteric.?HEART:?no clicks, gallops, murmurs, or rubs, regular rhythm, S1, S2 normal, no s3, or vascular bruits.?LUNGS:?clear to auscultation .?BREASTS:??no masses palpable bilaterally.?ABDOMEN:?bowel sounds normal, no ascites, no organomegaly, no mass , centripital obesity.?RECTAL EXAM:?not examined.?MUSCULOSKELETAL:?extremities unremarkable, no clubbing, cyanosis or edema, Normal range of motion of knees, Mild decreased range of motion lumbar spine.?PERIPHERAL PULSES:?normal.?NEUROLOGIC:?alert and oriented, cranial nerves 2-12 grossly intact, deep tendon reflexes 2+ symmetrical, motor strength normal upper and lower extremities, sensory exam intact.?PSYCH:?alert, oriented.? Assessment: * Assessment: 1.?Annual physical exam - Z0 0.00 (Primary), He remains healthy and well with no new complaints. No change in his regimen was needed. Comprehensive blood work was ordered.?2.?Obesity (BMI 30.0-34.9) - E66.9, His body mass index is stable at 34. We discussed diet and nutrition. We made a plan for him to lose weight at a rate of one half of a pound per week. A diet restricted in fat calories and sodium combined with regular physical activity.?3.?BPH (benign prostatic hyperplasia) - N40.0, He rises from sleep once or maybe twice a night to urinate depending upon fluid intake. We have discussed lifestyle modification as a way to reduce nocturnal urinating.?4.?Mixed hyperlipidemia - E78.2, Comprehensive blood work with a fasting lipid profile has been ordered to be done in the next week.?5.?GERD without esophagitis - K21.9, His reflux symptoms are well controlled with omeprazole and antacids. No change in his regimen was needed today.?6. Cervical radiculopathy - M54.12, His neck pain has resolved and he will avoid heavy lifting.?7.?Degenerative disc disease at L5-S1 level - M51.36, He continues to have intermittent pain in his low back that radiates down his leg. He is avoiding heavy lifting. I have recommended muscle strengthening physical therapy and regular follow-up.?8.?Sciatica of right side - M54.31, The sciatica has resolved and is no longer present.? Plan: * Treatment: ? Value Reference Range ?SG 1.005 1.005 - 1.025 * ?pH 5.0 5.0 - 9.0 * ?CHAR Negative Negative - * ?NIT Negative Negative - * ?PRO 15 Negative - Trac e * ?GLU Negative Negative - * ?KET Negative Negative - * ?UBG 0.2 0.1 - 1.8 * ?VARINDER Negative 0.2 - 1.3 * ?BLD Negative Negative - 2.?Obesity (BMI 30.0-34.9)? Continue Ibuprofen Tablet, 800 MG, TAKE 1 TABLET BY MOUTH EVERY 6 HOURS NEEDED WITH FOOD OR MILK.?LAB: PROFILE, FASTING (COMPREHENSIVE METABOLIC) ?LAB: PSA, TOTAL ?LAB: CBC WITH AUTO DIFF ?LAB: Lipid Panel3.?BPH (benign prostatic hyperplasia)?LAB: PROFILE, FASTING (COMPREHENSIVE METABOLIC) ?LAB: PSA, TOTAL ?LAB: CBC WITH AUTO DIFF ?LAB: Lipid Panel4.?Mixed hyperlipidemia?LAB: PROFILE, FASTING (COMPREHENSIVE METABOLIC) ?LAB: PSA, TOTAL ?LAB: CBC WITH AUTO DIFF ?LAB: Lipid Panel5.?Others? Continue Losartan Potassium Tablet, 50 MG, Oral;?Continue Ezetimibe Tablet, 10 MG, Oral.? * Procedure Codes:?17153 URINE -NO MICRO * Preventive Medicine:? ??Counseling:?Care goal follow-up plan:?Counseling for abnormal BMI given?Yes ?Above Normal BMI Follow-up?Dietary management education, guidance, and counseling, Dietary needs education, Exercise promotion: strength training, Exercise promotion: stretching, Feeding regime, Giving encouragement to exercise, Lifestyle education regarding diet, Nutrition / feeding management, Nutrition therapy, Prescribed activity/exercise education, Prescribed diet education, Prescribed dietary intake, Special diet education, Weight monitoring , Intervention, Order not done: Medical or Other reason not done * Follow Up:?1 Year (Reason: O V, Annual Exam) * Images: * Sign off status: Completed true * Provider:?Rusty Ramos MD Date:?05/2023 Generated for Eamon aleman/Jeremiah/eTransmitting on:?11/06/2024 04:40 AM EST History and Physical Notes * HPI (History of Present Illness) Category Sub-Category Detail Notes Depression Screening PHQ-9 Little inte rest or pleasure in doing things: Not at all Feeling down, depressed, or hopeless: No t at all Trouble falling or staying asleep, or sl eeping too much: Not at all Feeling tired or having little energy: N ot at all Poor appetite or overeating: Not at all Feeling bad about yourself o r that you are a failure, or have let yourself or your family down: Not at all Trouble concentrating on thi ngs, such as reading the newspaper or watching television: Not at all Moving or speaking so slowly that other people could have noticed; or the opposite, being so fidgety or restless that you have been moving around a lot more than usual: Not at all Thoughts that you would be b mu off or of hurting yourself in some way: Not at all Total Score: 0 COVID-19 Screening Questions Have you expe rienced fever, chills, cough, sore throat, shortness of breath, difficulty breathing, muscle aches, loss of taste or smell?: No Have you been exposed to the virus with n the last 10 days?: No Have you travelled internationally in e last 10 days?: No Have you been exposed to COVID-19 in the past?: No Examination Category Sub-Category Detail Notes General Examination GENERAL APPEARANCE: pleasant , well nourished, well developed, in no acute distress, calm and relaxed , obese , man HEAD: atraumatic, normocep halic EYES: eomi, perrla, anicte dario, conjugate EARS: normal NOSE: septum intact NECK/THYROID: no jugular venous di stention, no carotid bruit, thyroid normal HEART: no clicks, gallops, murmurs, or rubs, regular rhythm, S1, S2 normal, no s3, or vascular bruits LUNGS: clear to auscultatio n ABDOMEN: bowel sounds normal, no ascites, no organomegaly, no mass , centripital obesity NEUROLOGIC: alert and oriented, cranial nerves 2-12 grossly intact, deep tendon reflexes 2+ symmetrical, motor strength normal upper and lower extremities, sensory exam intact SKIN: no suspicious lesion s, anicteric PERIPHERAL PULSES: normal BREASTS: no masses palpable b ilaterally MUSCULOSKELETAL: extremities unremark able, no clubbing, cyanosis or edema, Normal range of motion of knees, Mild decreased range of motion lumbar spine LYMPH NODES: no enlarged lymph no ajay,spleen normal RECTAL EXAM: not examined PSYCH: alert, oriented ORAL CAVITY: normal, unremarkable
--- OUTSIDE RECORDS SUMMARY | 2024-11-06 04:40 | XMS_ITS ---
Author Organization Rusty Ramos III, MD Address [address] [facility] [place] [address] Care Team Providers Care Information Assurance Specialist Name Role Phone [facility] ider Unavailable Rusty Ramos Unavailable [phone] REASON FOR VISIT New Refill Request Medications Medication SIG (Take, Route, Fr equency, Duration) Notes Start Date End Date Status Ibuprofen 800 MG TAKE 1 TABLET BY EREN TH EVERY 6 HOURS NEEDED WITH FOOD OR MILK Orally every 6 hrs for 10 days 08/13/2024 A ctive Social History Sex Assigned At : Social History Observation Description Sex Assigned At Male Encounters Encounter Location Date Provider Diagnosis Rusty Ramos III, MD [address] [place] [address] [place] [address] 04/14/2024 Rusty Ramos Obesity (BMI 30.0-34.9) E66.9 Assessments Encounter Date Diagnosis (ICD Code) Assessment Notes Treatment Notes Treatment Clinical Notes 04/14/2024 Obesity (BMI 30.0-34.9) (ICD-10 - E66.9) His body mass index is stable at 34. We discussed diet and nutrition. We made a plan for him to lose weight at a rate of one half of a pound per week. A diet restricted in fat calories and sodium combined with regular physical activity. Plan Of Treatment Medication Medication Name Sig Start Date Stop Date Notes Ibuprofen 800 MG TAKE 1 TABLET BY EREN TH EVERY 6 HOURS NEEDED WITH FOOD OR MILK Orally every 6 hrs for 10 days 08/13/2024 Next Appt Details Provider Name:Rusty Ramos 11/19/2024 09:15:00 AM, [address] [facility] [address], [place], [address], Provider Name:Rusty Ramos, 11/06/2025 10:00:00 AM, [address] [place] [address] [address], [place], [address], Progress Notes * Dustin WEEKSDOB:1965 (58 yo M)Acc No.[id number]:04/14/2024 Patient:?Dustin Weeks :1965???Age:58 Y???Sex:Male Address:[address] [place] [address] [place], [address] * Refills? Refill Ibuprofen Tablet, 800 MG, Orally, 40, TAKE 1 TABLET BY MOUTH EVERY 6 HOURS NEEDED WITH FOOD OR MILK, every 6 hrs, 10 days, Refills=11 * true * Date:? Generated for Eamon aleman/Jeremiah/Mavericksmitting on:?11/06/2024 04:40 AM EST
--- OUTSIDE RECORDS SUMMARY | 2024-11-06 04:40 | XMS_ITS ---
Author Organization Rusty Ramos III, MD Address [address] [place] [address] Care Team Providers Care Supervisor Cartography Name Role Phone [facility] ider Unavailable Rusty Ramos Unavailable [phone] Allergies Allergen (clinical drug ingredient) Drug/Non Drug Allergy documented on EMR Reaction Allergy Type Onset Date Status Substance with 7-cdthfzt-9-methylgluta ryl-coenzyme A reductase inhibitor mechanism of action (substance) Statins hives Drug Allergy Active Results Component Value Reference Range Notes URINE DIP STICK Reviewed date:11/05/2024 10:11:29 AM Interpretation: Performing Lab: Notes/Report: SG 1.015 1.005 - 1.025 pH 5.0 5.0 - 9.0 CHAR Negative Negative - NIT Negative Negative - PRO 15 Negative - Trace GLU Negative Negative - KET 5 Negative - UBG 0.2 0.1 - 1.8 VARINDER Negative 0.2 - 1.3 BLD Negative Negative - Reason For Referral Reason Evaluate and Treat Questioning mass on anus Diagnosis 1 Rectal mass (K62.89) Referral Organization Rusty Ramos III, MD Referring Provider First Name Rusty Referring Provider Last Name Rachel Referring Provider Speciality Internal M edicine Referred Provider Henry Cote Referred Provider Specialty Thoracic Manish maury General Notes Jennie Ontiveros CMA 11/05 01:21:01 PM Called [facility] office made patient appt for 11/13/2024 at 8:30am with Dr Cote pt given this information today Referral Priority Routine Referral Appointment Date 11/13/2024 REASON FOR VISIT Annual Exam Medications Medication SIG (Take, Route, Frequency, Duration) Notes Start Date End Date Status Ezetimibe 10 MG Oral Acti ve Triamcinolone Acetonide 0.1 % 1 application Externally Two times a day for 21 days 11/05/2024 Active Losartan Potassium 50 MG Oral Active Immunizations Vaccine Route Administration Date Status Comme nts Influenza Vaccine Afluria IM Intramuscular 11/05/2024 Admi nistered Social History Tobacco Use: Social History Observation Description Date Details (start date - stop date) Never Smoker NA - NA Sex Assigned At : Social History Observation Description Sex Assigned At Male Tobacco Use/Smoking Question Answer Notes Patient is a nonsmoker Additional Findings: Tobacco Non-User Aggressive non-smoker Tobacco Control (Standard) Question Answer Notes Tobacco use: Nonsmoker Additional Findings: Tobacco non-user Aggressive nonsmoker AUDIT-C (Standard) Question Answer Notes Did you have a drink contain ing alcohol in the past year? Yes How often did you have six o r more drinks on one occasion in the past year? Less than monthly (1 point) How many drinks did you have on a typical day when you were drinking in the past year? 1 or 2 drinks (0 point) How often did you have a dri nk containing alcohol in the past year? Never (0 point) Points 1 Interpretation Negative Problems Problem Type SNOMED Code ICD Code Onset Dates Problem Status W/U Status Risk Notes Problem [id number] Mass of anus (K62.89) Active confirmed There is a visible and palpable 1 to 1-1/2 cm mass in the right lateral wall of the anal sphincter. It is weight and hard. It does not appear to be a typical hemorrhoid. I am uncertain as to the cause of it. He will utilize a sitz bath twice a day and twice a day triamcinolone. He is leaving for [place] until March of 2025. On November 28.. Therefore, I am asking Dr. Cote to see him before he leaves to make sure this is a benign lesion. Its appearance is atypical. Vital Signs Temperature 97.1 degrees Fahrenheit 11/05/20 24 Blood pressure systolic 140 mm Hg 11/05/20 24 Blood pressure diastolic 80 mm Hg 024 Heart Rate 69 /min 11/05/2024 Height 67 in 11/05/2024 Weight 216 lbs 11/05/2024 BMI 33.83 kg/m2 11/05/2024 Encounters Encounter Location Date Provider Diagnosis Rusty Ramos III, MD [address] [place] [address] [address] [place], [place] [id number] 11/05/2024 Rusty Ramos Mass of anus K62.89 ; BPH (benign prostatic hyperplasia) N40.0 ; Encounter for immunization Z23 ; Obesity (BMI 30.0-34.9) E66.9 ; GERD without esophagitis K21.9 ; Cervical radiculopathy M54.12 ; Degenerative disc disease at L5-S1 level M51.36 ; Sciatica of right side M54.31 and Mixed hyperlipidemia E78.2 Assessments Encounter Date Diagnosis (ICD Code) Assessment Notes Treat ment Notes Treatment Clinical Notes 11/05/2024 Mass of anus (ICD-10 - K62.89) There is a visible and palpable 1 to 1-1/2 cm mass in the right lateral wall of the anal sphincter. It is weight and hard. It does not appear to be a typical hemorrhoid. I am uncertain as to the cause of it. He will utilize a sitz bath twice a day and twice a day triamcinolone. He is leaving for [place] until March of 2025. On November 28.. Therefore, I am asking Dr. Cote to see him before he leaves to make sure this is a benign lesion. Its appearance is atypical. 11/05/2024 BPH (benign prostati c hyperplasia) (ICD-10 - N40.0) He rises from sleep once or maybe twice a night to urinate depending upon fluid intake. We have discussed lifestyle modification as a way to reduce nocturnal urinating. 11/05/2024 Encounter for immunization (ICD-10 - Z23) He was given a dose of influenza vaccine today without complication. He tolerated it well. 11/05/2024 Obesity (BMI 30.0-34.9) (ICD-10 - E66.9) His body mass index is stable at 33. We discussed diet and nutrition. We made a plan for him to lose weight at a rate of one half of a pound per week. A diet restricted in fat calories and sodium combined with regular physical activity. 11/05/2024 GERD without esophagitis (ICD-10 - K21.9) His reflux symptoms are well controlled with omeprazole and antacids. No change in his regimen was needed today. 11/05/2024 Cervical radiculopathy (ICD-10 - M54.12) His neck pain has resolved and he will avoid heavy lifting. 11/05/2024 Degenerative disc disease at L5-S1 level (ICD-10 - M51.36) He continues to have intermittent pain in his low back that radiates down his leg. He is avoiding heavy lifting. I have recommended muscle strengthening physical therapy and regular follow-up. 11/05/2024 Sciatica of right side (ICD-10 - M54.31) The sciatica has resolved and is no longer present. 11/05/2024 Mixed hyperlipidemia (ICD-10 - E78.2) He reports that he is intolerant of statin medication. His cholesterol is coming down with dietary education and weight loss. He has lost several pounds. His cholesterol levels from 1 year ago for 278 followed by 295 followed by the current value of 263. He will continue his efforts at diet and weight loss. He continues on ezetimbe. Plan Of Treatment Medication Medication Name Sig Start Date Stop Date Notes Ezetimibe 10 MG Oral Triamcinolone Acetonide 0.1 % 1 applicat ion Externally Two times a day for 21 days 11/05/2024 Losartan Potassium 50 MG Oral Referrals Referral Date Details 11/05/2024 11/05/2024, Evaluate and Treat Questioning mass on anus, Henry Cote Next Appt Details Follow Up: 2 Weeks, Reason: OV Provider Name:Rusty Ramos, 11/19/2024 09:15:00 AM, [address] [place] [address] [address], [place], [id number], Provider Name:Rusty Ramos, 11/06/2025 10:00:00 AM, [address] [place] [address] KAR[address] RAMOS, [place], [id number], Progress Notes * Dustin WEEKSDOB:1965 (59 yo M)Acc No.[id number]:11/05/2024 Progress Notes Patient:?MICKY Dustin Provider:?Rusty Ramos MD :1965???Age:59 Y???Sex:Male Gautam e:11/05/2024 Address:[address] [place], [place] [address], [id number] Pcp:[facility] enter Subjective: * Chief Complaints: * ???Annual [...] in some way?Not at all ?Total Score?0 ???COVID-19 Screening:?Questions?Have you experienced fever, chills, cough, sore throat, shortness of breath, difficulty breathing, muscle aches, loss of taste or smell??No ?Have you been exposed to the virus within the last 10 days??No ?Have you travelled internationally in the last 10 days??No ?Have you been exposed to COVID-19 in the past??Yes ???SDOH Questions:?SDOH Questions?In the past year have you been worried about losing your housing??No ?In the past year have you or any family members you live with been unable to get any of the following when it was really needed? Check all that apply:?None * ROS:?General/Constitutional:?pain?Anal pain and pruritus.?Chills?denies.?Fatigue?admits.?Fever?denies.?ENT:?Decreased hearing?denies.?Respiratory:?Cough?denies.?Cardiovascular:?Chest pain with exertion?denies.?Dyspnea on exertion?denies.?Shortness of breath?denies.?Gastrointestinal:?Constipation?occasional.?Decreased appetite?denies.?Diarrhea?denies.?Heartburn?denies.?Nausea?denies.?Rectal bleeding?denies.?Vomiting?denies.?Hematology:?bruising?denies.?petechiae?denies.?Swollen glands?none have been noted.?Genitourinary:?Frequent urination?once a night.?Musculoskeletal:?Muscle aches?denies.?Painful joints?denies.?Sciatica?affecting both lower sides of the body.?Weakness?denies.?Skin:?Itching?anal lump.?Rash?denies.?Skin lesion(s)?denies.?Neurologic:?Difficulty speaking?denies.?Dizziness?denies.?Headache?denies.?Low back pain?denies.?Psychiatric:?Depressed mood?denies.? * Medical History:? * Surgical History:?L knee art hroscopic surgery L great toe crushed with workout R shoulder repair re: dislocation 2008bilateral carpal tunnel surgery 2017colonoscopy for hematochezia, age 38, negative findings [id number] herniated disk removal 11/2019left and right trigger finger surgery 08/2021Ganglion cyst removed from finger eft hand [facility] 04/2023 * Hospitalization/Major Diagno stic Procedure:?Denies Past Hospitalization * Family History:?Father: cortney osborne 78 yrs, Alcohol excess.?Mother: alive 75 yrs, Adult-onset diabetes, diagnosed with Hyperlipidemia, DM, HTN.?2 brother(s) , 1 sister(s) - healthy. [...] is a?nonsmoker ?Additional Findings: Tobacco Non-User?Aggressive non-smoker ?Tobacco Control (Standard)?Tobacco use:?Nonsmoker ?Additional Findings: Tobacco non-user?Aggressive nonsmoker ???Drugs/Alcohol:?Drugs?Have you used drugs other than those for medical reasons in the past 12 months??No ???Drug/Alcohol:?AUDIT-C (Standard)?Did you have a drink containing alcohol in the past year??Yes ?How often did you have six or more drinks on one occasion in the past year??Less than monthly (1 point) ?How many drinks did you have on a typical day when you were drinking in the past year??1 or 2 drinks (0 point) ?How often did you have a drink containing alcohol in the past year??Never (0 point) ?Points?1 ?Interpretation?Negative ???He was born in [place], [place] and came to [facility] at the age of 8. He has been to Eunice for 35 years and they have 3 children, Kylah 35, Dustin 33 and Tristian, who is adopted,. 16. They have 5 healthy grandchildren. 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 His only toxic exposure was to chemicals found in illegal methamphetamine laboratories. * Medications:?TakingLosartan Potassium 50 MG Tablet Oral Ezetimibe 10 MG Tablet Oral Medication List reviewed and reconciled with the patientTaking Losartan Potassium 50 MG Tablet Oral Taking Ezetimibe 10 MG Tablet Oral Medication List reviewed and reconciled with the patient * Allergies:?Statins: hivesno[ Allergies Verified] Objective: * Vitals:?Ht: 67, Wt: 216, BMI :33.83, BP: 140/80, HR: 69, Temp: 97.1, Wt-k.98. * ???Past Orders: Lab:Complete Blood Count Aut o Diff * Collection Date 11/01/2024 05/15/2023 08/29/2022 Collection Time 07:17 AM 07:42 AM 06:57 AM Order Date 11/01/2024 05/15/2023 08/29/2022 White Blood Count 6.3 (Ref Range: 4.8-10.8 X10*3/uL) 6.4 (Ref Range: 4.8-10.8 X10*3/uL) 5.4 (Ref Range: 4.8-10.8 X10*3/uL) Red Blood Count 4.74 (Ref Range: 4.60-5.80 X10*6/uL) 4.72 (Ref Range: 4.60-5.80 X10*6/uL) 4.76 (Ref Range: 4.60-5.80 X10*6/uL) Hemoglobin 14.6 (Ref Range: 14.0-18.0 g/dl) 14.4 (Ref Range: 14.0-18.0 g/dl) 14.3 (Ref Range: 14.0-18.0 g/dl) Hematocrit 43.2 (Ref Range: 42.0-52.0 %) 43.1 (Ref Range: 42.0-52.0 %) 44.0 (Ref Range: 42.0-52.0 %) Mean Corpuscular Volume 91.1 (Ref Range: 80.0-98.0 fL) 91.3 (Ref Range: 80.0-98.0 fL) 92.4 (Ref Range: 80.0-98.0 fL) Mean Corpuscular Hemoglobin 30.8 (Ref Range: 27.0-33.0 pg) 30.5 (Ref Range: 27.0-33.0 pg) 30.0 (Ref Range: 27.0-33.0 pg) Mean Corpuscular HGB Conc 33.8 (Ref Range: 31.0-36.0 g/dl) 33.4 (Ref Range: 31.0-36.0 g/dl) 32.5 (Ref Range: 31.0-36.0 g/dl) Red Cell Distribution Width 12.7 (Ref Range: 11.0-16.0 %) 12.6 (Ref Range: 11.0-16.0 %) 12.7 (Ref Range: 11.0-16.0 %) Platelet Count 248 (Ref Range: 160-400 X10*3/uL) 260 (Ref Range: 160-400 X10*3/uL) 268 (Ref Range: 160-400 X10*3/uL) Mean Platelet Volume 9.3?L (Ref Range: 9.4-12.4 fL) 9.2?L (Ref Range: 9.4-12.4 fL) 9.3?L (Ref Range: 9.4-12.4 fL) Neutrophils Percent Auto 50.1 (Ref Range: 45-73 %) 44.5?L (Ref Range: 45-73 %) 44.3?L (Ref Range: 45-73 %) Imm Gran Pct Auto 0.3 (Ref Range: 0.0-0.4 %) 0.2 (Ref Range: 0.0-0.4 %) 0.2 (Ref Range: 0.0-0.4 %) Lymphocytes Percent Auto 36.8 (Ref Range: 20-40 %) 42.9?H (Ref Range: 20-40 %) 42.8?H (Ref Range: 20-40 %) Monocytes Percent Auto 8.4 (Ref Range: 2-11 %) 7.7 (Ref Range: 2-11 %) 8.3 (Ref Range: 2-11 %) Eosinophils Percent Auto 3.6 (Ref Range: 0-4 %) 3.8 (Ref Range: 0-4 %) 3.7 (Ref Range: 0-4 %) Basophils Percent Auto 0.8 (Ref Range: 0-2 %) 0.9 (Ref Range: 0-2 %) 0.7 (Ref Range: 0-2 %) NRBC Pct Auto 0.0 (Ref Range: 0.0-0.2 /100WBC) 0.0 (Ref Range: 0.0-0.2 /100WBC) 0.0 (Ref Range: 0.0-0.2 /100WBC) Neutrophils Absolute Auto 3.2 (Ref Range: 2.0-8.3 x10*3/uL) 2.8 (Ref Range: 2.0-8.3 x10*3/uL) 2.4 (Ref Range: 2.0-8.3 x10*3/uL) Imm Gran Abs Auto 0.02 (Ref Range: 0.00-0.03 X10*3/uL) 0.01 (Ref Range: 0.00-0.03 X10*3/uL) 0.01 (Ref Range: 0.00-0.03 X10*3/uL) Lymphocytes Absolute Auto 2.3 (Ref Range: 1.2-4.9 X10*3/uL) 2.7 (Ref Range: 1.2-4.9 X10*3/uL) 2.3 (Ref Range: 1.2-4.9 X10*3/uL) Monocytes Absolute Auto 0.5 (Ref Range: 0.1-1.2 X10*3/uL) 0.5 (Ref Range: 0.1-1.2 X10*3/uL) 0.5 (Ref Range: 0.1-1.2 X10*3/uL) Eosinophils Absolute Auto 0.2 (Ref Range: 0.0-0.4 X10*3/uL) 0.2 (Ref Range: 0.0-0.4 X10*3/uL) 0.2 (Ref Range: 0.0-0.4 X10*3/uL) Basophils Absolute Auto 0.1 (Ref Range: 0.0-0.2 X10*3/uL) 0.1 (Ref Range: 0.0-0.2 X10*3/uL) 0.0 (Ref Range: 0.0-0.2 X10*3/uL) NRBC Abs Auto 0.000 (Ref Range: 0.0-0.012 X10*3/uL) 0.000 (Ref Range: 0.0-0.012 X10*3/uL) 0.000 (Ref Range: 0.0-0.012 X10*3/uL) * Lab:Moustapha hwang Fast * Collection Date 11/01/2024 05/15/2023 08/29/2022 Collection Time 07:17 AM 07:42 AM 06:57 AM Order Date 11/01/2024 05/15/2023 08/29/2022 Sodium 143 (Ref Range: 135-145 mmol/L) 143 (Ref Range: 135-145 mmol/L) 142 (Ref Range: 135-145 mmol/L) Bilirubin Total 1.3?H (Ref Range: 0.0-1.0 mg/dL) 1.3?H (Ref Range: 0.0-1.0 mg/dL) 0.8 (Ref Range: 0.0-1.0 mg/dL) Aspartate Amino Transferase 29 (Ref Range: 5-37 U/L) 16 (Ref Range: 5-37 U/L) 20 (Ref Range: 5-37 U/L) Alanine Aminotransferase 37 (Ref Range: 0-40 U/L) 14 (Ref Range: 0-40 U/L) 21 (Ref Range: 0-40 U/L) Total Protein 7.7 (Ref Range: 6.5-8.0 g/dL) 7.5 (Ref Range: 6.5-8.0 g/dL) 7.2 (Ref Range: 6.5-8.0 g/dL) Albumin Level 4.4 (Ref Range: 3.5-5.0 g/dL) 4.2 (Ref Range: 3.5-5.0 g/dL) 4.4 (Ref Range: 3.5-5.0 g/dL) Alkaline Phosphatase 68 (Ref Range: 39-117 U/L) 60 (Ref Range: 39-117 U/L) 62 (Ref Range: 39-117 U/L) Potassium 4.2 (Ref Range: 3.3-5.1 mmol/L) 4.1 (Ref Range: 3.3-5.1 mmol/L) 4.0 (Ref Range: 3.3-5.1 mmol/L) Chloride 108 (Ref Range: 96-108 mmol/L) 108 (Ref Range: 96-108 mmol/L) 107 (Ref Range: 96-108 mmol/L) Carbon Dioxide 27 (Ref Range: 22-29 mmol/L) 27 (Ref Range: 22-29 mmol/L) 27 (Ref Range: 22-29 mmol/L) Anion Gap 12 (Ref Range: 12-20) 12 (Ref Range: 12-20) 12 (Ref Range: 12-20) Blood Urea Nitrogen 13 (Ref Range: 9-16 mg/dL) 17?H (Ref Range: 9-16 mg/dL) 16 (Ref Range: 9-16 mg/dL) Creatinine 1.31 (Ref Range: 0.5-1.4 mg/dL) 1.37 (Ref Range: 0.5-1.4 mg/dL) 1.25 (Ref Range: 0.5-1.4 mg/dL) Estimated Glomerular Filt Rate 56 54 60 Glucose Fasting 108?H (Ref Range: 60-99 mg/dL) 102?H (Ref Range: 60-99 mg/dL) 96 (Ref Range: 60-99 mg/dL) Calcium 10.3?H (Ref Range: 8.4-10.2 mg/dL) 9.9 (Ref Range: 8.4-10.2 mg/dL) 9.4 (Ref Range: 8.4-10.2 mg/dL) * Lab:Lipid Panel * Collection Date 11/01/2024 05/15/2023 08/29/2022 Collection Time 07:17 AM 07:42 AM 06:57 AM Order Date 11/01/2024 05/15/2023 08/29/2022 Triglycerides 158?H (Ref Range: <150 mg/dL) 132 (Ref Range: mg/dL) 180 (Ref Range: mg/dL) Cholesterol 263?H (Ref Range: <200 mg/dL) 295 (Ref Range: mg/dL) 278 (Ref Range: mg/dL) LDL Cholesterol Calculated 177?H (Ref Range: <100 mg/dL) 220 (Ref Range: mg/dl) 190 (Ref Range: mg/dl) HDL Cholesterol 55 (Ref Range: >40 mg/dL) 49 (Ref Range: mg/dL) 52 (Ref Range: mg/dL) * Lab:Prostate Specific Antige n * Collection Date 11/01/2024 05/15/2023 08/29/2022 Collection Time 07:17 AM 07:42 AM 06:57 AM Order Date 11/01/2024 05/15/2023 08/29/2022 Prostate Specific Antigen 3.72 (Ref Range: <0.05-4.0 ng/mL) 3.00 (Ref Range: <0.05-4.0 ng/mL) 2.43 (Ref Range: <0.05-4.0 ng/mL) * Lab:URINE DIP STICK * Collection Date 11/05/2024 11/02/2023 09/01/2021 Order Date 11/05/2024 11/02/2023 09/01/2021 SG 1.015 (Ref Range: 1.005 - 1.025) 1.005 (Ref Range: 1.005 - 1.025) 1.020 pH 5.0 (Ref Range: 5.0 - 9.0) 5.0 (Ref Range: 5.0 - 9.0) 5 CHAR Negative (Ref Range: Negative -) Negative (Ref Range: Negative -) neg NIT Negative (Ref Range: Negative -) Negative (Ref Range: Negative -) neg PRO 15 (Ref Range: Negative - Trace) 15 (Ref Range: Negative - Trace) trace GLU Negative (Ref Range: Negative -) Negative (Ref Range: Negative -) normal KET 5 (Ref Range: Negative -) Negative (Ref Range: Negative -) neg UBG 0.2 (Ref Range: 0.1 - 1.8) 0.2 (Ref Range: 0.1 - 1.8) normal VARINDER Negative (Ref Range: 0.2 - 1.3) Negative (Ref Range: 0.2 - 1.3) neg BLD Negative (Ref Range: Negative -) Negative (Ref Range: Negative -) neg Menstrating NR NR n/a * Examination: ???General Examination: ?GENERAL APPEARANCE:?pleasant, well nourished, well developed, in no acute distress, calm and relaxed, obese.?HEAD:?atraumatic, normocephalic.?EYES:?eomi, perrla, anicteric, conjugate.?EARS:?normal.?NOSE:?septum intact.?ORAL CAVITY:?normal, unremarkable.?NECK/THYROID:?no jugular venous distention, no carotid bruit, thyroid normal.?LYMPH NODES:?no enlarged lymph nodes,spleen normal.?SKIN:?no suspicious lesions, anicteric.?HEART:?no clicks, gallops, murmurs, or rubs, regular rhythm, S1, S2 normal, no s3, or vascular bruits.?LUNGS:?clear to auscultation .?BREASTS:??no masses palpable bilaterally.?ABDOMEN:?bowel sounds normal, no ascites, no organomegaly, no mass, centripital obesity.?RECTAL EXAM:?normal tone, no masses palpable, no melena, no red blood, prostate normal, stool guaiac negative, 1 cm white hard round lesion at 9:00.?MUSCULOSKELETAL:?extremities unremarkable, no clubbing, cyanosis or edema.?PERIPHERAL PULSES:?normal.?NEUROLOGIC:?alert and oriented, cranial nerves 2-12 grossly intact, deep tendon reflexes 2+ symmetrical, motor strength normal upper and lower extremities, sensory exam intact.?PSYCH:?alert, oriented.? Assessment: * Assessment: 1.?BPH (benign prostatic hyp erplasia) - N40.0 (Primary)???Notes :He rises from sleep once or maybe twice a night to urinate depending upon fluid intake. We have discussed lifestyle modification as a way to reduce nocturnal urinating.???2.?Mass of anus - K62.89???Notes :There is a visible and palpable 1 to 1-1/2 cm mass in the right lateral wall of the anal sphincter.? It is weight and hard.? It does not appear to be a typical hemorrhoid.? I am uncertain as to the cause of it.? He will utilize a sitz bath twice a day and twice a day triamcinolone.? He is leaving for [place] until March of 2025.? On November 28..? Therefore, I am asking Dr. Cote to see him before he leaves to make sure this is a benign lesion.? Its appearance is atypical.???3.?Encounter for immunization - Z23???Notes :He was given a dose of influenza vaccine today without complication.? He tolerated it well.???4.?Obesity (BMI 30.0-34.9) - E66.9???Notes :His body mass index is stable at 33. We discussed diet and nutrition. We made a plan for him to lose weight at a rate of one half of a pound per week. A diet restricted in fat calories and sodium combined with regular physical activity.???5.?GERD without esophagitis - K21.9???Notes :His reflux symptoms are well controlled with omeprazole and antacids. No change in his regimen was needed today.???6.?Cervical radiculopathy - M54.12???Notes :His neck pain has resolved and he will avoid heavy lifting.???7.?Degenerative disc disease at L5-S1 level - M51.36???Notes :He continues to have intermittent pain in his low back that radiates down his leg. He is avoiding heavy lifting. I have recommended muscle strengthening physical therapy and regular follow-up.???8.?Sciatica of right side - M54.31???Notes :The sciatica has resolved and is no longer present.???9.?Mixed hyperlipidemia - E78.2???Notes :He reports that he is intolerant of statin medication.? His cholesterol is coming down with dietary education and weight loss.? He has lost several pounds.? His cholesterol levels from 1 year ago for 278 followed by 295 followed by the current value of 263.? He will continue his efforts at diet and weight loss.? He continues on ezetimbe.??? Plan: * Treatment: 2.?Others? Continue Losartan Potassium Tablet, 50 MG, Oral;?Continue Ezetimibe Tablet, 10 MG, Oral.? Referral To:Henry Cote??Thoracic Surgery ?Reason:Evaluate and Treat Questioning mass on anus * Immunizations:? Influenza Vaccine Afluria : 0.5 mL (Dose No:1) (Route: Intramuscular) given by Kathryn Mays on Left Arm (Encounter for immunization) ???Immunization record has been reviewed and updated. * Labs:? * ?Lab: URINE DIP STICK (C ollection Date & Time - 11/05/2024) ? Value Reference Range ?SG 1.015 1.005 - 1.025 * ?pH 5.0 5.0 - 9.0 * ?CHAR Negative Negative - * ?NIT Negative Negative - * ?PRO 15 Negative - Trac e * ?GLU Negative Negative - * ?KET 5 Negative - * ?UBG 0.2 0.1 - 1.8 * ?VARINDER Negative 0.2 - 1.3 * ?BLD Negative Negative - * Procedure Codes:?31494 CCIIV 4 VAC NO PRSV 0.5 ML [id number] URINE-NO [id number] FLU VACC 4 ANASTACIO 3 YRS PLUS [id number] TEST FOR BLOOD, FECES * Preventive Medicine:? ??Counseling:?Care goal follow-up plan:?Counseling [...] or Other reason not done * Follow Up:?2 Weeks (Reason: OV) * Images: * Sign off status: Completed true * Provider:?Rusty Ramos MD Date:?10/27 Generated for Printi ng/Jeremiah/eTransmitting on:?11/06/2024 04:40 AM EST History and Physical [...] Have you been exposed to the virus withi n the last 10 days?: No Have you travelled internationally in [facility] last 10 days?: No Have you been exposed to COVID-19 in the past?: Yes SDOH Questions SDOH Questions In the past year have you been worried about losing your housing?: No In the past year have you or any family members you live with been unable to get any of the following when it was really needed? Check all that apply:: None Examination Category Sub-Category Detail Notes General Examination GENERAL APPEARANCE: pleasant , well nourished, well developed, in no acute distress, calm and relaxed, obese HEAD: atraumatic, normocep halic EYES: eomi, perrla, anicte dario, conjugate EARS: normal NOSE: septum intact NECK/THYROID: no jugular venous di stention, no carotid bruit, thyroid normal HEART: no clicks, gallops, murmurs, or rubs, regular rhythm, S1, S2 normal, no s3, or vascular bruits LUNGS: clear to auscultatio n ABDOMEN: bowel sounds normal, no ascites, no organomegaly, no mass, centripital obesity NEUROLOGIC: alert and oriented, cranial nerves 2-12 grossly intact, deep tendon reflexes 2+ symmetrical, motor strength normal upper and lower extremities, sensory exam intact SKIN: no suspicious lesion s, anicteric PERIPHERAL PULSES: normal BREASTS: no masses palpable b ilaterally MUSCULOSKELETAL: extremities unremark able, no clubbing, cyanosis or edema LYMPH NODES: no enlarged lymph no ajay,spleen normal RECTAL EXAM: normal tone, no mass es palpable, no melena, no red blood, prostate normal, stool guaiac negative, 1 cm white hard round lesion at 9:00 PSYCH: alert, oriented ORAL CAVITY: normal, unremarkable Consultation Request Notes Referral Date Referring Provider Referred Provider Not james 11/05/2024 Rusty Ramos Pasquale Evaluate an d Treat Questioning mass on anus
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
--- OUTSIDE RECORDS SUMMARY | 2024-11-06 04:41 | XMS_ITS | Continuity of Care Document ---
Author Name [facility] Organization [facility] Care Team Providers Care Access Rep Name Role Phone [facility] Unavailable Unavailable Problems Combined list of problems from Department of Defense and Veterans Affairs facilities. It does not include entries that were removed or entered in error. Problem Status Onset Date Problem Type Date of Resolution Comments Source Essential hypertension Active Condition [facility] Hypercholesterolemia Active Condition [facility] Low back pain Active Condition [facility] Radiculopathy Active Condition [facility] Diagnosis: ICD-10-CM Z23 Encounter for immunization Active Diagnosis [facility] Diagnosis: ICD-10-CM M54.59 Other low back pain Active Diagnosis [facility] Diagnosis: ICD-10-CM M54.50 Low back pain, unspecified Active Diagnosis [facility] Medications Combined list of outpatient medications from Department of Defense and Veterans Affairs facilities.Medications provided include 1) outpatient medications from the last 15 months, and 2) patient-reported medications. Medication Details Route Status Patient Instructions Prescription Expires Prescription Number Last Dispense Date Ordering Provider Order Date Order Qty Source COZAAR (BRAND) 50 MG ORAL TAB TAKE ONE TABLET BY MOUTH ONCE DAILY FOR BLOOD PRESSURE /HEART Active 01/23/2025 [id number] GALE ARNOLD JAWED 2023 90 [facility] COZAAR (BRAND) 50 MG ORAL TAB TAKE ONE TABLET BY MOUTH ONCE DAILY FOR BLOOD PRESSURE /HEART Active 01/23/2025 [id number] GALE ARNOLD JAWED 2023 90 [facility] COZAAR (BRAND) 50 MG ORAL TAB TAKE ONE TABLET BY MOUTH ONCE DAILY FOR BLOOD PRESSURE /HEART Active 11/09/2024 [id number] 4 GALE ARNOLD JAWED 2022 90 [facility] COZAAR (BRAND) 50 MG ORAL TAB TAKE ONE TABLET BY MOUTH ONCE DAILY FOR BLOOD PRESSURE /HEART Active 11/09/2024 [id number] GALE ARNOLD JAWED 2022 90 [facility] ezetimibe (U/D) 10 MG ORAL TAB TAKE ONE TABLET BY MOUTH ONCE DAILY TO LOWER CHOLESTE ROL Active 04/09/2025 [id number] FURCOLO, ZURI 2023 90 [facility] ezetimibe (U/D) 10 MG ORAL TAB TAKE ONE TABLET BY MOUTH ONCE DAILY TO LOWER CHOLESTE ROL Discont inued 06/29/2024 [id number] 4 GALE ARNOLD JAWED 2023 90 [facility] EZETIMIBE 10MG TAB TAKE ONE TABLET BY MOUTH ONCE DAILY TO LOWER CHOLESTE ROL ORAL ACTIVE 04/09/2025 [id number] 4 FURCOLO,T TASHIA 2023 90 [facility] EZETIMIBE 10MG TAB TAKE ONE TABLET BY MOUTH ONCE DAILY TO LOWER CHOLESTE ROL ORAL DISCONT INUED 06/29/2024 [id number] WILFREDO ARNOLD JAWED 2022 90 [facility] Ibuprofen (Motrin) Tablet 800 mg Oral TAKE ONE TABLET BY MOUTH TWICE DAILY NEEDED FOR PAIN TAKE WITH FOOD Active 05/17/2025 [id number] FURCOLO, ZURI 2023 90 [facility] Ibuprofen (Motrin) Tablet 800 mg Oral TAKE ONE TABLET BY MOUTH TWICE DAILY NEEDED FOR PAIN TAKE WITH FOOD Discont inued 06/29/2024 [id number] GALE ARNOLD JAWED 2023 60 [facility] IBUPROFEN 800MG TAB TAKE ONE TABLET BY MOUTH TWICE DAILY NEEDED FOR PAIN TAKE WITH FOOD ORAL ACTIVE 05/17/2025 [id number] 4 FURCOLO,T TASHIA 2023 90 [facility] IBUPROFEN 800MG TAB TAKE ONE TABLET BY MOUTH TWICE DAILY NEEDED FOR PAIN TAKE WITH FOOD ORAL DISCONT INUED 06/29/2024 [id number] 3 WILFREDO ARNOLD JAWED 2022 60 [facility] LOSARTAN 50MG TAB TAKE ONE TABLET BY MOUTH ONCE DAILY FOR BLOOD PRESSURE /HEART ORAL ACTIVE 09/28/2025 [id number] Olga GAMBOA TASHIA 2023 90 [facility] LOSARTAN 50MG TAB TAKE ONE TABLET BY MOUTH ONCE DAILY FOR BLOOD PRESSURE /HEART ORAL DISCONT INUED 01/23/2025 [id number] WILFREDO ARNOLD JAWED 2023 90 [facility] LOS[place]AN 50MG TAB TAKE ONE TABLET BY MOUTH ONCE DAILY FOR BLOOD PRESSURE /HEART ORAL DISCONT INUED 11/09/2024 [id number] [facility] JAWED 2022 90 [facility] Allergies, Adverse Reactions, Alerts Combined list of allergies from Department of Defense and Veterans Affairs facilities. It does not include entries that were removed or entered in error. 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 Immunization Series Date Given Administered By Site Reaction Lot Number CVX Code Drug Assistant Associate Full Professor Status Comments Source ZOSTER RECOMBINANT 2023 AUGUST MOMIN E LEFT DELTO ID [id number] 187 complet ed Diluent lot # [id number] expiratio n 05/12/26 [facility] ZOSTER RECOMBINANT 2023 BARON SCHUMACHER LEFT DELTO ID [id number] 187 complet ed [facility] INFLUENZA, UNSPECIFIED FORMULATION 2022 88 complet ed [facility] TDAP 2021 MELITA BILLINGS LEFT DELTO ID [id number] 115 complet ed [facility] INFLUENZA, UNSPECIFIED FORMULATION 2021 88 complet ed [facility] COVID-19 ([employer]), MRNA, LNP-S, PF, 30 MCG/0.3 ML DOSE, JENNIFER-SUCROSE (AGES 12+ YEARS) 4 2021 217 complet ed Lot#: [id number] Mfr: [employer], [place] [facility] COVID-19 ([employer]), MRNA, LNP-S, PF, 30 MCG/0.3 ML DOSE 3 2020 208 complet ed Lot#: [id number] Mfr: [employer], [employer] [facility] COVID-19 ([employer]), MRNA, LNP-S, PF, 30 MCG/0.3 ML DOSE 2 2020 208 complet ed Lot#: [id number] Mfr: [employer], [employer] [facility] COVID-19 ([employer]), MRNA, LNP-S, PF, 30 MCG/0.3 ML DOSE 1 2020 208 complet ed Lot#: [id number] Mfr: [employer], [employer] [facility] [place] [place] Results Combined list of recent chemistry, hematology and other laboratory results from Department of Defense and Veterans Affairs, ranging from 15 months to all on record, depending upon the facility. Order Name Results Value Reference Range Date Interpretation Specimen Comments Source BASIC METABOLI C PANEL (fasting ) UREA NITROGEN [MASS/VOLU ME] IN SERUM OR PLASMA 14 mg/dL 7 - 25 05/06 Specimen Type: SERUM No comment entered. Ordering Provider: ROB ARNOLD Report Released Date/Time: Nov 09, 2023 02:19 PM Reporting Lab: [facility] [place] [address] [address] Performing Lab: [facility] [place] [facility] [address] [facility] [address] [facility] BASIC METABOLI C PANEL (fasting ) GLUCOSE [MASS/VOLU ME] IN SERUM OR PLASMA 111 mg/dL 65 - 100 05/06 H Specimen Type: SERUM No comment entered. Ordering Provider: ROB ARNOLD Report Released Date/Time: Nov 09, 2023 02:19 PM Reporting Lab: [facility] [place] [facility] [address] [facility] [address] Performing Lab: [facility] [place] [facility] [address] [facility] [address] [facility] BASIC METABOLI C PANEL (fasting ) SODIUM [MOLES/VOL UME] IN SERUM OR PLASMA 141 mmol/L 135 - 145 05/06 Specimen Type: SERUM No comment entered. Ordering Provider: ROB ARNOLD Report Released Date/Time: Nov 09, 2023 02:19 PM Reporting Lab: [facility] [place] [facility] [address] [facility] [address] Performing Lab: [facility] [place] [facility] [address] [facility] [address] [facility] [place] [facility] BASIC METABOLI C PANEL (fasting ) POTASSIUM [MOLES/VOL UME] IN SERUM OR PLASMA 4.2 mmol/L 3.5 - 5.0 05/06 Specimen Type: SERUM No comment entered. Ordering Provider: ROB ARNOLD Report Released Date/Time: Nov 09, 2023 02:19 PM Reporting Lab: [facility] [place] [facility] [address] [facility] [address] Performing Lab: [facility] [place] [facility] [address] [facility] [address] [facility] BASIC METABOLI C PANEL (fasting ) CHLORIDE [MOLES/VOL UME] IN SERUM OR PLASMA 109 mmol/L 100 - 110 05/06 Specimen Type: SERUM No comment entered. Ordering Provider: ROB ARNOLD Report Released Date/Time: Nov 09, 2023 02:19 PM Reporting Lab: [facility] [place] [facility] [address] [facility] [address] Performing Lab: [facility] [place] [facility] [address] [facility] [address] [facility] BASIC METABOLI C PANEL (fasting ) CARBON DIOXIDE, TOTAL [MOLES/VOL UME] IN SERUM OR PLASMA 24 meq/L 20 - 30 05/06 Specimen Type: SERUM No comment entered. Ordering Provider: ROB ARNOLD Report Released Date/Time: Nov 09, 2023 02:19 PM Reporting Lab: [facility] [place] [facility] [address] [facility] [address] Performing Lab: [facility] [place] [address] [address] [facility] [place] [facility] BASIC METABOLI C PANEL (fasting ) CREATININE [MASS/VOLU ME] IN SERUM OR PLASMA 1.25 mg/dL 0.50 - 1.40 05/06 Specimen Type: SERUM No comment entered. Ordering Provider: ROB ARNOLD Report Released Date/Time: Nov 09, 2023 02:19 PM Reporting Lab: [facility] [place] [facility] [address] [facility] [address] Performing Lab: [facility] [place] [address] [address] [facility] BASIC METABOLI C PANEL (fasting ) GLOMERULAR FILTRATION RATE/1.73 SQ M.PREDICTE D [VOLUME RATE/AREA] IN SERUM, PLASMA OR BLOOD BY CREATININE -BASED FORMULA (CKD-EPI 2020) 66 mL/min 60 05/06 Specimen Type: SERUM No comment entered. Ordering Provider: ROB ARNOLD Report Released Date/Time: Nov 09, 2023 02:19 PM Reporting Lab: [facility] [place] [address] [address] Performing Lab: [facility] [place] [address] [address] [facility] HEPATITI S A ANTIBODY (IGG) HEPATITIS A VIRUS IGG AB [PRESENCE] IN SERUM Non Reactive 05/06 Specimen Type: SERUM Comment: Hep A IgG: A 'Non-reacti ve' result indicates no anti-HAV IgG was detected. Ordering Provider: ROB ARNOLD Report Released Date/Time: Nov 09, 2023 02:19 PM Reporting Lab: [facility] [address] [facility] [address] Performing Lab: [facility]N [facility] [address] [facility] [address] [facility] HEPATITI S B SURFACE ANTIBODY (HBsAb)- WH HEPATITIS B VIRUS SURFACE AB [PRESENCE] IN SERUM BY IMMUNOASSA Y Non Reactive 05/06 Specimen Type: SERUM No comment entered. Ordering Provider: ROB ARNOLD Report Released Date/Time: Nov 09, 2023 02:19 PM Reporting Lab: [facility] [address] [facility] [address] Performing Lab: [facility] [address] [facility] [address] [facility] LIPID PANEL FASTING CHOLESTERO L [MASS/VOLU ME] IN SERUM OR PLASMA 232 mg/dL 05/06 H Specimen Type: SERUM No comment entered. Ordering Provider: ROB ARNOLD Report Released Date/Time: Nov 09, 2023 02:19 PM Reporting Lab: [facility] [address] [facility] [address] Performing Lab: [facility] [address] [facility] [address] [facility]ITALRELMORE [facility]ITALN [facility] LIPID PANEL FASTING TRIGLYCERI DE [MASS/VOLU ME] IN SERUM OR PLASMA 139 mg/dL 0 - 150 05/06 Specimen Type: SERUM No comment entered. Ordering Provider: ROB ARNOLD Report Released Date/Time: Nov 09, 2023 02:19 PM Reporting Lab: [facility] [place] [facility] [address] [facility] [address] Performing Lab: [facility] [place] [facility] [address] [facility] [address] [facility] LIPID PANEL FASTING CHOLESTERO L IN LDL [MASS/VOLU ME] IN SERUM OR PLASMA BY CALCULAGISSELLO N 150 mg/dL 0 - 129 05/06 H Specimen Type: SERUM No comment entered. Ordering Provider: ROB ARNOLD Report Released Date/Time: Nov 09, 2023 02:19 PM Reporting Lab: [facility] [place] [facility] [address] [facility] [address] Performing Lab: [facility] [place] [facility] [address] [facility] [address] [facility] LIPID PANEL FASTING CHOLESTERO L.TOTAL/CH OLESTEROL IN HDL [MASS RATIO] IN SERUM OR PLASMA 4.3 05/06 Specimen Type: SERUM No comment entered. Ordering Provider: ROB ARNOLD Report Released Date/Time: Nov 09, 2023 02:19 PM Reporting Lab: [facility] [place] [facility] [address] [facility] [address] Performing Lab: [facility] [place] [facility] [address] [facility] [address] [facility] [place] [facility] LIPID PANEL FASTING CHOLESTERO L IN HDL [MASS/VOLU ME] IN SERUM OR PLASMA 54 mg/dL 40 - 60 05/06 Specimen Type: SERUM No comment entered. Ordering Provider: ROB ARNOLD Report Released Date/Time: Nov 09, 2023 02:19 PM Reporting Lab: [facility] [place] [facility] [address] [facility] [address] Performing Lab: [facility] [place] [facility] [address] [facility] [address] [facility] LIVER FUNCTION PROTEIN [MASS/VOLU ME] IN SERUM OR PLASMA 7.1 g/dL 6.0 - 8.3 05/06 Specimen Type: SERUM No comment entered. Ordering Provider: ROB ARNOLD Report Released Date/Time: Nov 09, 2023 02:19 PM Reporting Lab: [facility] [address] [facility] [address] Performing Lab: [facility] [address] [facility] [address] [facility] LIVER FUNCTION ALBUMIN [MASS/VOLU ME] IN SERUM OR PLASMA 4.1 g/dL 3.5 - 5.0 05/06 Specimen Type: SERUM No comment entered. Ordering Provider: RBO ARNOLD Report Released Date/Time: Nov 09, 2023 02:19 PM Reporting Lab: [facility] [address] [facility] [address] Performing Lab: [facility] [place] [facility] [address] [facility] [address] [facility] LIVER FUNCTION ALKALINE PHOSPHATAS E [ENZYMATIC ACTIVITY/V OLUME] IN SERUM OR PLASMA 57 U/L 40 - 150 05/06 Specimen Type: SERUM No comment entered. Ordering Provider: ROB ARNOLD Report Released Date/Time: Nov 09, 2023 02:19 PM Reporting Lab: [facility] [address] [facility] [address] Performing Lab: [facility] [place] [facility] [address] [facility] [address] [facility] LIVER FUNCTION ASPARTATE AMINOTRANS FERASE [ENZYMATIC ACTIVITY/V OLUME] IN SERUM OR PLASMA 20 U/L 5 - 34 05/06 Specimen Type: SERUM No comment entered. Ordering Provider: ROB ARNOLD Report Released Date/Time: Nov 09, 2023 02:19 PM Reporting Lab: [facility] [address] [facility] [address] Performing Lab: [facility] [address] [facility] [address] [facility] LIVER FUNCTION ALANINE AMINOTRANS FERASE [ENZYMATIC ACTIVITY/V OLUME] IN SERUM OR PLASMA 21 U/L 05/06 Specimen Type: SERUM No comment entered. Ordering Provider: ROB ARNOLD Report Released Date/Time: Nov 09, 2023 02:19 PM Reporting Lab: [facility] [place] [facility] [address] [facility] [address] Performing Lab: [facility]ITALRL [facility]N [facility] [address] [facility] [address] [facility]ITALRL TRN [facility]USE [facility] LIVER FUNCTION BILIRUBIN. TOTAL [MASS/VOLU ME] IN SERUM OR PLASMA 1.0 mg/dL 0.2 - 1.2 05/06 Specimen Type: SERUM No comment entered. Ordering Provider: ROB ARNOLD Report Released Date/Time: Nov 09, 2023 02:19 PM Reporting Lab: [facility]ITAL[facility]ITALUSE[address] [address] Performing Lab: [facility]ITAL[facility]ITALUSE[address] [address] [facility]RL TRN [facility]PITALUSE [facility] BASIC METABOLI C PANEL (fasting ) UREA NITROGEN [MASS/VOLU ME] IN SERUM OR PLASMA 15 mg/dL 7 - 25 10/31 Specimen Type: SERUM No comment entered. Ordering Provider: ROB ARNOLD Report Released Date/Time: Oct 25, 2023 12:46 PM Reporting Lab: [facility]ITALUSE[address] [address] Performing Lab: [facility]ITALRL [facility]N [facility]PITALUSETS [address] [address] [facility]ITALRL TRN [facility]PITALUSE [facility] BASIC METABOLI C PANEL (fasting ) GLUCOSE [MASS/VOLU ME] IN SERUM OR PLASMA 101 mg/dL 65 - 100 10/31 H Specimen Type: SERUM No comment entered. Ordering Provider: ROB ARNOLD Report Released Date/Time: Oct 25, 2023 12:46 PM Reporting Lab: [facility]USE[address] [address] Performing Lab: [facility] [place] [address] [place] [address] [facility] [place] [facility] BASIC METABOLI C PANEL (fasting ) SODIUM [MOLES/VOL UME] IN SERUM OR PLASMA 140 mmol/L 135 - 145 10/31 Specimen Type: SERUM No comment entered. Ordering Provider: ROB ARNOLD Report Released Date/Time: Oct 25, 2023 12:46 PM Reporting Lab: [facility] [place] [address] [address] Performing Lab: [facility] [place] [facility] [address] [facility] [address] [facility] [place] [facility] BASIC METABOLI C PANEL (fasting ) POTASSIUM [MOLES/VOL UME] IN SERUM OR PLASMA 4.3 mmol/L 3.5 - 5.0 10/31 Specimen Type: SERUM No comment entered. Ordering Provider: ROB ARNOLD Report Released Date/Time: Oct 25, 2023 12:46 PM Reporting Lab: [facility] [place] [address] [address] Performing Lab: [facility] [place] [address] [address] [facility] [place] [facility] BASIC METABOLI C PANEL (fasting ) CHLORIDE [MOLES/VOL UME] IN SERUM OR PLASMA 108 mmol/L 100 - 110 10/31 Specimen Type: SERUM No comment entered. Ordering Provider: ROB ARNOLD Report Released Date/Time: Oct 25, 2023 12:46 PM Reporting Lab: [facility] [place] [facility] [address] [facility] [address] Performing Lab: [facility] [place] [address] [address] [facility] [place] [facility] BASIC METABOLI C PANEL (fasting ) CARBON DIOXIDE, TOTAL [MOLES/VOL UME] IN SERUM OR PLASMA 23 meq/L 20 - 30 10/31 Specimen Type: SERUM No comment entered. Ordering Provider: ROB ARNOLD Report Released Date/Time: Oct 25, 2023 12:46 PM Reporting Lab: [facility] [place] [facility] [address] [facility] [address] Performing Lab: [facility] [place] [facility] [address] [facility] [address] [facility] [place] [facility] BASIC METABOLI C PANEL (fasting ) CREATININE [MASS/VOLU ME] IN SERUM OR PLASMA 1.22 mg/dL 0.50 - 1.40 10/31 Specimen Type: SERUM No comment entered. Ordering Provider: ROB ARNOLD Report Released Date/Time: Oct 25, 2023 12:46 PM Reporting Lab: [facility] [place] [facility] [address] [facility] [address] Performing Lab: [facility] [place] [facility] [address] [facility] [address] [facility] [place] [facility] BASIC METABOLI C PANEL (fasting ) GLOMERULAR FILTRATION RATE/1.73 SQ M.PREDICTE D [VOLUME RATE/AREA] IN SERUM, PLASMA OR BLOOD BY CREATININE -BASED FORMULA (CKD-EPI 2020) 69 mL/min 60 10/31 Specimen Type: SERUM No comment entered. Ordering Provider: ROB ARNOLD Report Released Date/Time: Oct 25, 2023 12:46 PM Reporting Lab: [facility] [place] [facility] [address] [facility] [address] Performing Lab: [facility] [place] [facility] [address] [facility] [address] [facility] [place] [facility] CBC AND DIFF (AUTO) LEUKOCYTES [#/VOLUME] IN BLOOD BY AUTOMATED COUNT 5.10 10*3/uL 4.50 - 11.00 10/31 Specimen Type: BLOOD No comment entered. Ordering Provider: ROB ARNOLD Report Released Date/Time: Oct 25, 2023 12:46 PM Reporting Lab: [facility] [place] [facility] [address] [facility] [address] Performing Lab: [facility] [place] [facility] [address] [facility] [address] [facility] CBC AND DIFF (AUTO) ERYTHROCYT ES [#/VOLUME] IN BLOOD BY AUTOMATED COUNT 4.69 10*6/uL 4.23 - 5.66 10/31 Specimen Type: BLOOD No comment entered. Ordering Provider: ROB ARNOLD Report Released Date/Time: Oct 25, 2023 12:46 PM Reporting Lab: [facility] [place] [facility] [address] [facility] [address] Performing Lab: [facility] [place] [facility] [address] [facility] [address] [facility] CBC AND DIFF (AUTO) HEMOGLOBIN [MASS/VOLU ME] IN BLOOD 14.0 g/dL 12.8 - 17 10/31 Specimen Type: BLOOD No comment entered. Ordering Provider: ROB ARNOLD Report Released Date/Time: Oct 25, 2023 12:46 PM Reporting Lab: [facility] [place] [address] [address] Performing Lab: [facility] [place] [address] [address] [facility] [place] [facility] CBC AND DIFF (AUTO) HEMATOCRIT [VOLUME FRACTION] OF BLOOD BY AUTOMATED COUNT 43.1 39.2 - 50.4 10/31 Specimen Type: BLOOD No comment entered. Ordering Provider: ROB ARNOLD Report Released Date/Time: Oct 25, 2023 12:46 PM Reporting Lab: [facility] [place] [address] [address] Performing Lab: [facility] [place] [facility] [address] [facility] [address] [facility] CBC AND DIFF (AUTO) MCV [ENTITIC VOLUME] BY AUTOMATED COUNT 91.9 fL 82 - 99 10/31 Specimen Type: BLOOD No comment entered. Ordering Provider: ROB ARNOLD Report Released Date/Time: Oct 25, 2023 12:46 PM Reporting Lab: [facility] [place] [address] [address] Performing Lab: [facility] [place] [facility] [address] [facility] [address] [facility] [place] [facility] CBC AND DIFF (AUTO) MCHC [MASS/VOLU ME] BY AUTOMATED COUNT 32.5 g/dL 30.8 - 35.1 10/31 Specimen Type: BLOOD No comment entered. Ordering Provider: ROB ARNOLD Report Released Date/Time: Oct 25, 2023 12:46 PM Reporting Lab: [facility] [facility] [address] [facility] [address] Performing Lab: [facility] [address] [facility] [address] [facility] CBC AND DIFF (AUTO) PLATELETS [#/VOLUME] IN BLOOD BY AUTOMATED COUNT 250 10*3/uL 140 - 360 10/31 Specimen Type: BLOOD No comment entered. Ordering Provider: ROB ARNOLD Report Released Date/Time: Oct 25, 2023 12:46 PM Reporting Lab: [facility] [address] [facility] [address] Performing Lab: [facility] [address] [facility] [address] [facility] CBC AND DIFF (AUTO) ERYTHROCYT E DISTRIBUTI ON WIDTH [RATIO] BY AUTOMATED COUNT 12.5 12.0 - 16.0 10/31 Specimen Type: BLOOD No comment entered. Ordering Provider: ROB ARNOLD Report Released Date/Time: Oct 25, 2023 12:46 PM Reporting Lab: [facility] [address] [facility] [address] Performing Lab: [facility] [address] [facility] [address] [facility] CBC AND DIFF (AUTO) MONOCYTES [#/VOLUME] IN BLOOD BY AUTOMATED COUNT 0.36 10*3/uL 0.30 - 1.10 10/31 Specimen Type: BLOOD No comment entered. Ordering Provider: AHMED,MOHAM MED JAWED Report Released Date/Time: Oct 25, 2023 12:46 PM Reporting Lab: [facility] [address] [facility] [address] Performing Lab: [facility] [address] [facility] [address] [facility] CBC AND DIFF (AUTO) MCH [ENTITIC MASS] BY AUTOMATED COUNT 29.9 pg 26.2 - 32.6 10/31 Specimen Type: BLOOD No comment entered. Ordering Provider: ROB ARNOLDED Report Released Date/Time: Oct 25, 2023 12:46 PM Reporting Lab: [facility] [address] [facility] [address] Performing Lab: [facility] [address] [facility] [address] [facility] CBC AND DIFF (AUTO) NEUTROPHIL S/100 LEUKOCYTES IN BLOOD BY AUTOMATED COUNT 50.6 43.7 - 75.8 10/31 Specimen Type: BLOOD No comment entered. Ordering Provider: ROB ARNOLD Report Released Date/Time: Oct 25, 2023 12:46 PM Reporting Lab: [facility] [address] [facility] [address] Performing Lab: [facility] [address] [facility] [address] [facility] CBC AND DIFF (AUTO) LYMPHOCYTE S/100 LEUKOCYTES IN BLOOD BY AUTOMATED COUNT 38.8 14.0 - 42.3 10/31 Specimen Type: BLOOD No comment entered. Ordering Provider: ROB ARNOLD Report Released Date/Time: Oct 25, 2023 12:46 PM Reporting Lab: [facility] [address] [facility] [address] Performing Lab: [facility] [address] [facility] [address] [facility] CBC AND DIFF (AUTO) MONOCYTES/ 100 LEUKOCYTES IN BLOOD BY AUTOMATED COUNT 7.1 5.1 - 13.7 10/31 Specimen Type: BLOOD No comment entered. Ordering Provider: ROB ARNOLD Report Released Date/Time: Oct 25, 2023 12:46 PM Reporting Lab: [facility] [address] [facility] [address] Performing Lab: [facility] [address] [facility] [address] [facility] CBC AND DIFF (AUTO) EOSINOPHIL S/100 LEUKOCYTES IN BLOOD BY AUTOMATED COUNT 2.5 0.4 - 6.8 10/31 Specimen Type: BLOOD No comment entered. Ordering Provider: ROB ARNOLD Report Released Date/Time: Oct 25, 2023 12:46 PM Reporting Lab: [facility] [address] [facility] [address] Performing Lab: [facility] [address] [facility] [address] [facility] CBC AND DIFF (AUTO) BASOPHILS/ 100 LEUKOCYTES IN BLOOD BY AUTOMATED COUNT 0.8 0.1 - 2.0 10/31 Specimen Type: BLOOD No comment entered. Ordering Provider: ROB ARNOLD Report Released Date/Time: Oct 25, 2023 12:46 PM Reporting Lab: [facility] [address] [facility] [address] Performing Lab: [facility] [address] [facility] [address] [facility] CBC AND DIFF (AUTO) NEUTROPHIL S [#/VOLUME] IN BLOOD BY AUTOMATED COUNT 2.58 10*3/uL 2.20 - 7.60 10/31 Specimen Type: BLOOD No comment entered. Ordering Provider: ROB ARNOLD Report Released Date/Time: Oct 25, 2023 12:46 PM Reporting Lab: [facility] [address] [facility] [address] Performing Lab: [facility] [address] [facility] [address] [facility] CBC AND DIFF (AUTO) LYMPHOCYTE S [#/VOLUME] IN BLOOD BY AUTOMATED COUNT 1.98 10*3/uL 1.00 - 3.20 10/31 Specimen Type: BLOOD No comment entered. Ordering Provider: ROB ARNOLD Report Released Date/Time: Oct 25, 2023 12:46 PM Reporting Lab: [facility] [address] [facility] [address] Performing Lab: [facility] [address] [place] [address] [facility] CBC AND DIFF (AUTO) EOSINOPHIL S [#/VOLUME] IN BLOOD BY AUTOMATED COUNT 0.13 10*3/uL 0.03 - 0.44 10/31 Specimen Type: BLOOD No comment entered. Ordering Provider: ROB ARNOLD Report Released Date/Time: Oct 25, 2023 12:46 PM Reporting Lab: [facility] [address] [place] [address] Performing Lab: [facility] [address] [place] [address] [facility] CBC AND DIFF (AUTO) BASOPHILS [#/VOLUME] IN BLOOD BY AUTOMATED COUNT 0.04 10*3/uL 0.01 - 0.13 10/31 Specimen Type: BLOOD No comment entered. Ordering Provider: ROB ARNOLD Report Released Date/Time: Oct 25, 2023 12:46 PM Reporting Lab: [facility] [address] [facility] [address] Performing Lab: [facility] [address] [facility] [address] [facility] CBC AND DIFF (AUTO) IMMATURE GRANULOCYT ES/100 LEUKOCYTES IN BLOOD BY AUTOMATED COUNT 0.2 0.0 - 0.7 10/31 Specimen Type: BLOOD No comment entered. Ordering Provider: ROB ARNOLD Report Released Date/Time: Oct 25, 2023 12:46 PM Reporting Lab: [facility] [address] [facility] [address] Performing Lab: [facility] [address] [facility] [address] [facility] CBC AND DIFF (AUTO) IMMATURE GRANULOCYT ES [#/VOLUME] IN BLOOD 0.01 10*3/uL 0.00 - 0.06 10/31 Specimen Type: BLOOD No comment entered. Ordering Provider: ROB ARNOLD Report Released Date/Time: Oct 25, 2023 12:46 PM Reporting Lab: [facility] [address] [facility] [address] Performing Lab: [facility] [address] [facility] [address] [facility] LIPID PANEL FASTING CHOLESTERO L [MASS/VOLU ME] IN SERUM OR PLASMA 254 mg/dL 10/31 H Specimen Type: SERUM No comment entered. Ordering Provider: ROB ARNOLD Report Released Date/Time: Oct 25, 2023 12:46 PM Reporting Lab: [facility] [address] [facility] [address] Performing Lab: [facility] [address] [facility] [address] [facility] LIPID PANEL FASTING TRIGLYCERI DE [MASS/VOLU ME] IN SERUM OR PLASMA 108 mg/dL 0 - 150 10/31 Specimen Type: SERUM No comment entered. Ordering Provider: ROB ARNOLD Report Released Date/Time: Oct 25, 2023 12:46 PM Reporting Lab: [facility] [address] [facility] [address] Performing Lab: [facility] [address] [facility] [address] [facility] LIPID PANEL FASTING CHOLESTERO L IN LDL [MASS/VOLU ME] IN SERUM OR PLASMA BY CALCDAGO N 174 mg/dL 0 - 129 10/31 H Specimen Type: SERUM No comment entered. Ordering Provider: ROB ARNOLD Report Released Date/Time: Oct 25, 2023 12:46 PM Reporting Lab: [facility] [address] [facility] [address] Performing Lab: [facility] [address] [facility] [address] [facility] LIPID PANEL FASTING CHOLESTERO L.TOTAL/CH OLESTEROL IN HDL [MASS RATIO] IN SERUM OR PLASMA 4.4 10/31 Specimen Type: SERUM No comment entered. Ordering Provider: ROB ARNOLD Report Released Date/Time: Oct 25, 2023 12:46 PM Reporting Lab: [facility] [address] [facility] [address] Performing Lab: [facility] [address] [facility] [address] [facility] LIPID PANEL FASTING CHOLESTERO L IN HDL [MASS/VOLU ME] IN SERUM OR PLASMA 58 mg/dL 40 - 60 10/31 Specimen Type: SERUM No comment entered. Ordering Provider: ROB ARNOLD Report Released Date/Time: Oct 25, 2023 12:46 PM Reporting Lab: [facility] [address] [facility] [address] Performing Lab: [facility] [address] [facility] [address] [facility] LIVER FUNCTION PROTEIN [MASS/VOLU ME] IN SERUM OR PLASMA 7.6 g/dL 6.0 - 8.3 10/31 Specimen Type: SERUM No comment entered. Ordering Provider: ROB ARNOLD Report Released Date/Time: Oct 25, 2023 12:46 PM Reporting Lab: [facility] [address] [facility] [address] Performing Lab: [facility] [address] [facility] [address] [facility] LIVER FUNCTION ALBUMIN [MASS/VOLU ME] IN SERUM OR PLASMA 4.2 g/dL 3.5 - 5.0 10/31 Specimen Type: SERUM No comment entered. Ordering Provider: ROB ARNOLD Report Released Date/Time: Oct 25, 2023 12:46 PM Reporting Lab: [facility] [address] [facility] [address] Performing Lab: [facility] [address] [facility] [address] [facility] LIVER FUNCTION ALKALINE PHOSPHATAS E [ENZYMATIC ACTIVITY/V OLUME] IN SERUM OR PLASMA 60 U/L 40 - 150 10/31 Specimen Type: SERUM No comment entered. Ordering Provider: ROB ARNOLD Report Released Date/Time: Oct 25, 2023 12:46 PM Reporting Lab: [facility] [address] [address] Performing Lab: [facility] [address] [facility] [address] [facility] LIVER FUNCTION ASPARTATE AMINOTRANS FERASE [ENZYMATIC ACTIVITY/V OLUME] IN SERUM OR PLASMA 31 U/L 5 - 34 10/31 Specimen Type: SERUM No comment entered. Ordering Provider: ROB ARNOLD Report Released Date/Time: Oct 25, 2023 12:46 PM Reporting Lab: [facility] [address] [address] Performing Lab[facility] [address] [facility] [address] [facility] LIVER FUNCTION ALANINE AMINOTRANS FERASE [ENZYMATIC ACTIVITY/V OLUME] IN SERUM OR PLASMA 33 U/L 10/31 Specimen Type: SERUM No comment entered. Ordering Provider: ROB ARNOLD Report Released Date/Time: Oct 25, 2023 12:46 PM Reporting Lab: [facility] [address] [facility] [address] Performing Lab: [facility] [address] [facility] [address] [facility] LIVER FUNCTION BILIRUBIN. TOTAL [MASS/VOLU ME] IN SERUM OR PLASMA 1.1 mg/dL 0.2 - 1.2 10/31 Specimen Type: SERUM No comment entered. Ordering Provider: ROB ARNOLD Report Released Date/Time: Oct 25, 2023 12:46 PM Reporting Lab: [facility] [address] [facility] [address] Performing Lab: [facility] [address] [facility] [address] [facility] PROTEIN/ CREATINI NE RATIO PANEL, URINE CREATININE [MASS/VOLU ME] IN URINE 55.08 mg/dL 10/31 Specimen Type: URINE No comment entered. Ordering Provider: ROB ARNOLD Report Released Date/Time: Oct 25, 2023 12:46 PM Reporting Lab: [facility] [address] [facility] [address] Performing Lab: [facility] [address] [facility] [address] [facility] PROTEIN/ CREATINI NE RATIO PANEL, URINE PROTEIN/CR EATININE [MASS RATIO] IN URINE canc <0.2 - 0.2 10/31 Specimen Type: URINE No comment entered. Ordering Provider: ROB ARNOLD Report Released Date/Time: Oct 25, 2023 12:46 PM Reporting Lab: [facility] [address] [facility] [address] Performing Lab: [facility] [address] [facility] [address] [facility] PROTEIN/ CREATINI NE RATIO PANEL, URINE PROTEIN [MASS/VOLU ME] IN URINE < 6.8mg/dL 0.0 - 20.0 10/31 Specimen Type: URINE No comment entered. 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 Vital Sign Value Date Comments Source SYSTOLIC BLOOD PRESSURE 137 05/16/20 24 09:10:22 [facility] DIASTOLIC BLOOD PRESSURE 84 024 09:10:22 [facility] PULSE OXIMETRY 99 2024 09:10:22 [facility] WEIGHT 213 2024 09:10:22 [facility] BMI 33kg/m2 2024 09:10:22 [facility] PAIN 6 2024 09:10:22 [facility] TEMPERATURE 98.7 2024 09:10:22 [facility] PULSE 68 2024 09:10:22 [facility] RESPIRATION 16 2024 09:10:22 [facility] SYSTOLIC BLOOD PRESSURE 140 11/09/20 23 13:55:02 [facility] DIASTOLIC BLOOD PRESSURE 80 023 13:55:02 [facility] PULSE OXIMETRY 98% 11/09/2023 13:55:02 [facility] WEIGHT 217 11/09/2023 13:55:02 [facility] BMI 34kg/m2 11/09/2023 13:55:02 [facility] PAIN 0 11/09/2023 13:55:02 [facility] TEMPERATURE 98.6 11/09/2023 13:55:02 [facility] PULSE 79 11/09/2023 13:55:02 [facility] RESPIRATION 16 11/09/2023 13:55:02 [facility] Encounters Combined list of: 1) Encounters from Department of Veterans Affairs facilities going back up to thelast 18 months. 2) Encounters from the Department of Defense facilities going back up to 280 months. Location Location Details Encounter Type Encounter Number Reason For Visit Attending Provider ADM Date DC Date Status Disposition Source [facility] Out[facility] Encounter [id number] 05/25 [facility] Encounter [id number] 06/16 [facility] OFFICE O/P EST LOW 20-29 MIN [id number] Diagnos is: ICD-10- CM M54.50 Low back pain, unspeci fied
ADRYAN ARNOLD MMED JAWED 06/29 [facility] Out[facility] Encounter [id number] ADRYAN ARNOLD MMED JAWED 06/29 [facility] Out[facility] Encounter [id number] 08/10 [facility] Encounter [id number] Tyrel SULTANA 08/14 [facility] Encounter [id number] 08/15 [facility]counter [id number] 08/22 [facility] Encounter [id number] 09/26 [facility] Encounter [id number] 09/29 [facility] Encounter [id number] 10/05 [facility]counter [id number] 10/10 [facility] Out[facility] Encounter [id number] 10/16 [facility] Out[facility] Encounter [id number] 10/27 [facility] Out[facility] Encounter [id number] 11/07 [facility] OFFICE O/P EST MOD 30-39 MIN [id number] Diagnos is: ICD-10- CM M54.59 Other low back pain
AHMED,MOHA MMED JAWED 11/09 [facility] Encounter [id number] 04/05 [facility] Out[facility] Encounter [id number] 05/08 [facility] OFFICE O/P EST MOD 30 MIN [id number] Diagnos is: ICD-10- CM M54.59 Other low back pain
FURCOLO,TI NA 05/16 [facility] En[facility] [id number] 05/17 [facility] Out[facility] Encounter [id number] 05/17 [facility] Out[facility] Encounter [id number] 05/28 [facility] Encounter [id number] 05/28 [facility] Out[facility] Encounter [id number] 06/07 [facility] Out[facility]counter [id number] 06/10 [facility] Out[facility] Encounter [id number] 06/18 [facility] Encounter [id number]/20 [facility] OFF/OP EST MAY X REQ PHY/QHP [id number] Diagnos is: ICD-10- CM Z23 Encount er for immuniz ation<b r/> Lidia MOMIN LORENZO E 07/24 [facility] [place] [facility] Outpatient Encounter [id number] 09/27 [facility] [place] [facility] Social History Combined list of available smoking, tobacco, and other social history from Department of Defense and Veterans Affairs facilities. Social History Type Response Date Comment Sourc e Tobacco smoking status NHIS VA-TOBACCO NEVER USED 11/09/2023 [facility] [place] [facility] History of tobacco use MD-TOBACCO NEVER USED 09/26/2022 [facility] [place] [facility] This section is an empty social history section. [facility] Plan of Care List of future care activities from Department of Veterans Affairs facilities. Additional future care activities may be listed in the Assessment and Plan section. Date/Time Care Activity Care Activity Detail Facili ty 04/28/2025 AMBULATORY - MEDICINE AMBULATORY - MEDICI NE [facility] [place] [facility]
--- OUTSIDE RECORDS SUMMARY | 2024-11-06 04:41 | XMS_ITS ---
Author Name [facility] [place] [facility] [place] Address [address] [place] [address] Care Team Providers Care Medical Officer Name Role Phone ZURI GAMBOA Primary Care Provider Unavailabl e Insurance Providers: All historical and current Section Date Range: From patient's date of to the date document was created. This section includes the names of all active insurance providers for the patient. Insurance Provider Type of Coverage Plan Name Start of Policy Coverage End of Policy Coverage Group Number Member ID Insurance Provider's Telephone Number Policy Quinones's Name Patient's Relationship to Policy Quinones [place]) MEDIGAP PLAN C [id number] , [facility] CE ORGANIZ FAIRV IEW COMMO NS May 27, 2020 [id number] YVES PULIDO PATIENT [facility] CE ORGANIZAT ION [place] PEE EARLY RETIR May 27, 2020 [id number] YVES PULIDO PATIENT [employer] RX PRESCRIPT ION HEALT H NEW ENGLA ND May 27, 2020 [id number] YVES PULIDO PATIENT Selected Encounter This section includes the information on record at [place] for the Encounter. Date/Time Encounter Type Encounter Description Reason Provider Source Nov 09, 2023 02:00 PM OFFICE O/P EST MOD 30-39 MIN PRIMARY CARE/MEDICINE ICD-10-CM M54.59 Other low back pain GALE ARNOLD E Encounter Template Text not used by [facility] Assessments - Encounter Diagnoses This section includes the primary and secondary diagnoses documented for the Encounter. Date/Time Primary/Secondary Diagnosis Diagnosis Name Provider Source Nov 09, 2023 02:41 PM PRIMARY Other low back pain EDA ARNOLD JAWED [place] [facility] [place] [facility] Nov 09, 2023 02:41 PM SECONDARY Essential (primary) hypertension EDA ARNOLD D JAWED [place] [facility] [place] [facility] Nov 09, 2023 02:41 PM SECONDARY Other spondylosis with radiculopathy, thoracic region EDA ARNOLD D JAWED [place] [facility] [place] [facility] Nov 09, 2023 02:41 PM SECONDARY Pure hypercholesterolem ia, unspecified EDWARD ARNOLDE D JAWED [place] [facility] [place] [facility] Lab Results: +/- 30 days of the encounter This section includes the Chemistry and Hematology Lab Results on record with [place] for the patient. Radiology Reports and Pathology Reports are provided separately, in subsequent sections. Lab Results This section contains the Chemistry/Hematology Results that were resulted 30 days before or 30 daysafter the date of the Encounter. Date/Time Source Result Type Result - Unit Interpretation Reference Range Comment Oct 31, 2023 10:36 AM [facility] PROTEIN/CREATININE RATIO PANEL, URINE Specimen Type: URINE No comment entered. Ordering Provider: GALE ARNOLD Report Released Date/Time: Oct 25, 2023 12:46 PM Reporting [facility] [place] [facility] [address] [id number] Performing Lab: [facility] [address] [address] CREATININE URINE 55.08 mg/dL UR PROTEIN/CREATI NINE RATIO canc <0.2 PROTEIN, URINE < 6.8 mg/dL 0.0-20.0 Oct 31, 2023 10:36 AM [facility] BASIC METABOLIC PANEL (fasting) Specimen Type: SERUM No comment entered. Ordering Provider: AHMED,MOHAMMED JAWED Report Released Date/Time: Oct 25, 2023 12:46 PM Reporting Lab: [facility] [address] [address] Performing Lab: [facility] [address] [address] UREA NITROGEN 15 mg/dL 7-25 GLUCOSE 101 mg/dL H 65-100 SODIUM 140 mmol/L 135-145 POTASSIUM 4.3 mmol/L 3.5-5.0 CHLORIDE 108 mmol/L 100-110 CO2 23 meq/L 20-30 CREATININE, Serum 1.22 mg/dL 0.50-1.40 eGFR(CKD-EPI 2020) 69 mL/min >60 Oct 31, 2023 10:36 AM [facility] LIPID PANEL FASTING Specimen Type: SERUM No comment entered. Ordering Provider: GALE ARNOLD Report Released Date/Time: Oct 25, 2023 12:46 PM Reporting Lab: [address] [address] Performing Lab: [address] [address] CHOLESTEROL 254 mg/dL H TRIGLYCERIDE 108 mg/dL 0-150 LDL calculated 174 mg/dL H 0-129 CHOL/HDL 4.4 HDL CHOLESTEROL 58 mg/dL 40-60 Oct 31, 2023 10:36 AM [facility] LIVER FUNCTION Specimen Type: SERUM No comment entered. Ordering Provider: GALE ARNOLD Report Released Date/Time: Oct 25, 2023 12:46 PM Reporting Lab: [facility] [address] [address] [address] Performing Lab: [address] [address] PROTEIN,TOTAL 7.6 g/dL 6.0-8.3 ALBUMIN 4.2 g/dL 3.5-5.0 ALKALINE PHOSPHATASE 60 U/L 40-150 AST 31 U/L 5-34 ALT 33 U/L BILIRUBIN, TOTAL 1.1 mg/dL 0.2-1.2 Oct 31, 2023 10:36 AM [facility] CBC AND DIFF (AUTO) Specimen Type: BLOOD No comment entered. Ordering Provider: GALE ARNOLD Report Released Date/Time: Oct 25, 2023 12:46 PM Reporting Lab: [facility] [address] [address] [address] Performing Lab: [facility] [address] [address] WBC 5.10 10*3/uL 4.50-11.00 RBC 4.69 10*6/uL 4.23-5.66 HGB 14.0 g/dL 12.8-17 HCT 43.1 39.2-50.4 MCV 91.9 fL 82-99 MCHC 32.5 g/dL 30.8-35.1 PLT 250 10*3/uL 140-360 RDW-CV 12.5 12.0-16.0 [place], Abs 0.36 10*3/uL 0.30-1.10 MCH 29.9 pg 26.2-32.6 Neut % 50.6 43.7-75.8 Lymph % 38.8 14.0-42.3 [place] % 7.1 5.1-13.7 Eos % 2.5 0.4-6.8 Baso % 0.8 0.1-2.0 Neut, Abs 2.58 10*3/uL 2.20-7.60 Lymph, Abs 1.98 10*3/uL 1.00-3.20 Eos, Abs 0.13 10*3/uL 0.03-0.44 Baso, Abs 0.04 10*3/uL 0.01-0.13 Immature Gran % 0.2 0.0-0.7 Immature Gran, Abs 0.01 10*3/uL 0.00-0.06 Oct 31, 2023 10:36 AM [facility] HEMOGLOBIN A1C PANEL Specimen Type: BLOOD Comment: Values obtained from A1C measurements can vary. For atypical A1C assays, a reported value of 7.0 could actually be between 6.72 and 7.28 if measured by a reference method. A reported value of 9.0 could actually be between 8.73 and 9.27. Ref: http://www.ngs p.org/CAPdata. asp Ordering Provider: GALE ARNOLD Report Released Date/Time: Oct 25, 2023 12:46 PM Reporting [facility] [place] [facility] [address] [address] Performing Lab: [place] [facility] [place] [facility] [address] [address] HEMOGLOBIN A1C 5.4 4.0-5.6 Oct 31, 2023 10:36 AM [facility] TSH Specimen Type: SERUM No comment entered. Ordering Provider: GALE ARNOLD Report Released Date/Time: Oct 25, 2023 12:46 PM Reporting Lab[facility] [place] [facility] [address] [address] Performing Lab: [place] [facility] [place] [facility] [address] [address] TSH 0.83 u[IU]/mL 0.35-5.00 Oct 31, 2023 10:36 AM [facility] CREATININE (eGFR 2020) Specimen Type: SERUM No comment entered. Ordering Provider: GALE ARNOLD Report Released Date/Time: Oct 25, 2023 12:46 PM Reporting Lab[facility] [place] [facility] [address] [address] Performing Lab: [facility] [address] [phone] CREATININE, Serum 1.22 mg/dL 0.50-1.40 eGFR(CKD-EPI 2020) 69 mL/min >60 Oct 31, 2023 10:36 AM [facility] URINALYSIS Specimen Type: URINE Comment: If Glucose = >500 and Ketones are positive, please alert the Physician. Ordering Provider: GALE ARNOLD Report Released Date/Time: Oct 25, 2023 12:46 PM Reporting Lab: [place] [facility] [place] [facility] [address] [address] Performing Lab: [facility] [place] [address] [address] UA COLOR Colorless Yellow UA APPEARANCE Clear Clear UA GLUCOSE NEGATIVE mg/dL Negative UA KETONES NEGATIVE mg/dL Negative UA BLOOD NEGATIVE mg/dL Negative UA PROTEIN NEGATIVE mg/dL Negative UA NITRITE NEGATIVE mg/dL Negative UA BILIRUBIN NEGATIVE mg/dL Negative UA SPECIFIC GRAVITY 1.011 L 1.016-1.02 2 UA pH 6.0 5.0-9.0 UA UROBILINOGEN <2.0 mg/dL <2.0 UA LEUKOCYTE NEGATIVE Negative Vital Signs: All taken on the encounter date This section contains inpatient and outpatient Vital Signs collected on the date of the Encounter. Date/Time Temperature Pulse Blood Pressure Respiratory Rate SP02 Pain Height Weight Body Mass Index Source Nov 09, 2023 01:55 PM 98.6 F 79 /min 140/80 mm[Hg] 16 /min 98 % 0 217 lb 34 [facility] Social History: Smoking Status (Most current) and Tobacco Use (All prior to encounter date) This section includes the most current, and the historical, smoking and tobacco- related health factors from the [place] facility where the Encounter took place. Current Smoking Status This section includes the most current smoking, or tobacco-related health factor, from the [place] facility where the Encounter took place. Date/Time Current Smoking Status Comment Facil ity Nov 09, 2023 02:00 PM VA-TOBACCO NEVER USED [facility] Tobacco Use History This section includes a history of the smoking, or tobacco-related health factors, that were collected on or before the date of the Encounter. The data comes from the [place] facility where the Encounter took place. Date/Time Smoking Status/Tobacco Use Comment F acility Sep 26, 2022 08:00 AM VA-TOBACCO NEVER USED [facility] Encounter Notes: All associated encounter notes This section contains the clinical notes associated to the Encounter. Date/Time Encounter Note(s) Provider Source Nov 09, 2023 02:40 PM PHYSICIAN NOTE: LOCAL TITLE: NOTE STANDARD TITLE: PHYSICIAN NOTE DATE OF NOTE: NOV 09, 2023@14:40 ENTRY DATE: NOV 09, 2023@14:40:29 AUTHOR: GALE ARNOLD EXP COSIGNER: URGENCY: STATUS: COMPLETED Patient Name: BISHNU PULIDO VITALS: Patient temperature: 98.6 F [37.0 C] (11/09/2023 13:55) Blood pressure: 140/80 (11/09/2023 13:55) Patient height: 67 in [170.2 cm] (06/29/2023 14:52) Patient weight: 217 lb [98.43 kg] (11/09/2023 13:55) Patient BMI: BMI: 34.1 Patient pulse: 79 (11/09/2023 13:55) Patient respiration: 16 (11/09/2023 13:55) Patient Pulse Oximetry: 98% (11/09/2023 13:55) Pain Ratin (11/09/2023 13:55) Active [facility] Medications: Active Outpatient Medications (including Supplies): Active Outpatient Medications Status 1) EZETIMIBE 10MG TAB TAKE ONE TABLET BY MOUTH ONCE ACTIVE DAILY TO LOWER CHOLESTEROL 2) IBUPROFEN 800MG TAB TAKE ONE TABLET BY MOUTH TWICE ACTIVE DAILY NEEDED FOR PAIN TAKE WITH FOOD Pending Outpatient Medications Status 1) LOSARTAN 50MG TAB TAKE ONE TABLET BY MOUTH ONCE DAILY PENDING FOR BLOOD PRESSURE/HEART 3 Total Medications Remote Medications: No Active Remote Medications for this patient HPI: Patient came today for routine 6-month follow-up appointment. History of service-connected back pain patient has physical therapy that make it first but he was given a referral for acupuncture which helps his pain patient said in November he is going to [place] and will come back in March he would call us for another acupuncture consult to be put in at that time. Familial hypercholesterolemia with a very high LDL cholesterol patient unable to tolerate atorvastatin he gets urticaria he was given medication Zetia reviewed his recent lipid profile is LDL cholesterol has been gradually coming down patient was counseled to eat low-fat diet. Repeat blood work in April. Essential hypertension patient was given losartan his blood pressure was running better but he ran out and did not fill his losartan he is going to restart. Review of system. CVS-Denies any chest pain or discomfort. Respiratory-denies any sob- no changes in his baseline respiratory status. GI-no Gi complains-like nausea and vomiting, abdominal pain or acid reflux, blood in stool, diarrhea. -denies any frequency, urgency, dysuria On examination: patient is alert and oriented X3 vitals are stable, He is in no apparent distress. CVS: regular rate and rhythm Lungs: clear to auscultation ABD: Benign EXT: no edema. Reviewed his lab work urinalysis was normal hemoglobin A1c was 5.4 complete blood count was normal TSH was normal Renal function were normal Blood glucose was 101 LFTs were normal Total cholesterol 254 LDL cholesterol 174 and HDL cholesterol 58 Assessment/plan: 1. Service-connected low back pain patient takes ibuprofen as needed also getting acupuncture. 2. Essential hypertension patient ran out his losartan systolic blood pressure slightly high he is going to restart and will continue to monitor his blood pressure 3. Hypercholesterolemia continue Zetia unable to tolerate statins because of urticaria. 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 The [place]/caregiver was informed that we will continue to ask this screening question every 5 years. They can contact their provider/healthcare team if they have concerns about exposures and would like to be screened sooner. Printed information was offered and provided if desired. Hepatitis B Serology/Immunization: see orders Medication Reconciliation: Outpatient: Has the patient been taking medications as documented in the EMLR? YES: The patient has been taking medications as documented in the EMLR. Essential Medication List for Review used to complete this medication reconciliation. INCLUDED IN THIS LIST: Alphabetical list of active outpatient prescriptions dispensed from this [facility] (local) and dispensed from another VA or [facility]D facility (remote) as well as inpatient orders (local, pending and active), local clinic medications, locally documented non-VA medications, and local prescriptions that have or been discontinued in the past 90 days. - All changes in medications, including all non-VA/Herbal/OTC medications were entered into CPRS. - If there were any medications the patient should no longer take, they were discontinued. - The patient/caregiver was instructed to update this list, discard old lists, and take this list to the next appointment, whether with a VA or non-VA provider. /es/ GALE ARNOLD MD STAFF PHYSICIAN Signed: 11/09/2023 14:41 GALE ARNOLD [place] [facility] [place] [facility] Nov 09, 2023 01:58 PM PREVENTIVE MEDICINE NURSING NOTE: LOCAL TITLE: CLINICAL REMINDERS/NURSING STANDARD TITLE: PREVENTIVE MEDICINE NURSING NOTE DATE OF NOTE: NOV 09, 2023@13:58 ENTRY DATE: NOV 09, 2023@13:58:20 AUTHOR: IAIN BRAN EXP COSIGNER: URGENCY: STATUS: COMPLETED Suicide Screen: C-SSRS Screening [place] Suicide Severity Rating Scale (C-SSRS) screener 1. Over the past month, have you wished you were or wished you could go to sleep and not wake up? No 2. Over the past month, have you had any actual thoughts of killing yourself? No 3. Over the past month, have you been thinking about how you might do this? Response not required due to responses to other questions. 4. Over the past month, have you had these thoughts and had some intention of acting on them? Response not required due to responses to other questions. 5. Over the past month, have you started to work out or worked out the details of how to kill yourself? Response not required due to responses to other questions. 6. If yes, at any time in the past month did you intend to carry out this plan? Response not required due to responses to other questions. 7. In your lifetime, have you ever done anything, started to do anything, or prepared to do anything to end your life (for example, collected pills, obtained a gun, gave away valuables, went to the roof but didn't jump)? No 8. If YES, was this within the past 3 months? Response not required due to responses to other questions. Depression Screening: Perform PHQ-2 A PHQ-2 screen was performed. The score was 0 which is a negative screen for depression. Over the past two weeks, how often have you been bothered by the following problems? 1. Little interest or pleasure in doing things Not at all 2. Feeling down, depressed, or hopeless Not at all Tobacco Use Screening: The patient has never used tobacco. Homelessness/Food Insecurity Screen: In the past 2 months, have you been living in stable housing that you own, rent, or stay in as part of a household? Yes - Living in stable housing. Are you worried or concerned that in the next 2 months you may NOT have stable housing that you own, rent, or stay in as part of a household? No - Not worried about housing near future The [place] reports the following: Within the past 12 months, you worried whether your food would run out before you got money to buy more. Never true Within the past 12 months, the food you bought just didn't last and you didn't have money to get more. Never true Influenza Immunization: The patient has received the seasonal influenza vaccine for the current season at another location. Documented: INFLUENZA, UNSPECIFIED FORMULATION Historical Date Administered: Aug 10, 2023 Series: Booster Outside Location: Outside Healthcare Provider Information Source: FROM OTHER PROVIDER Alcohol Use Screen (AUDIT-C): Alcohol Screen: SCREEN FOR ALCOHOL (AUDIT-C) An alcohol screening test (AUDIT-C) was negative (score=1). 1. How often did you have a drink containing alcohol in the past year? Monthly or less 2. How many drinks containing alcohol did you have on a typical day when you were drinking in the past year? One or two drinks 3. How often did you have six or more drinks on one occasion in the past year? Never /es/ IAIN BRAN LPN Signed: 11/09/2023 14:02 ARA BRAN [place] [facility]
--- OUTSIDE RECORDS SUMMARY | 2024-11-06 04:42 | XMS_ITS | Encounter Summary ---
Author Name [facility] [facility] [place] [facility] [place] Address [address] [place] [address] Care Team Providers Care Fixing Machine Operator Name Role Phone ZURI GAMBOA Primary Care [...] CARD) MEDIGAP PLAN C 000 000 , [facility] CE ORGANIZ FAIRV IEW COMMO NS May 27, 2020 [id number] YVES PULIDO PATIENT [facility] CE ORGANIZAT ION CHICO PEE EARLY RETIR May 27, 2020 [id number] YVES PULIDO PATIENT OPTUM RX PRESCRIPT ION HEALT H NEW [place] May 27, 2020 [facility] [id number] [phone] YVES PULIDO PATIENT Selected Encounter This section includes the information on record at [place] for the Encounter. Date/Time Encounter Type Encounter Description Reason Pro vider Source Nov 07, 2023 12:00 PM Outpatient Encounter COMMUNITY CARE CONSULT IHE Encounter Template Text not used by [facility] Plan of Treatment: Future Appointments (+ 6 months) and Future Tests (+/- 45 days) The Plan of Treatment section includes future care activities for the patient from all [place] [facility] This section includes future appointments and future orders which are active, pending or scheduled. Future Appointments This section includes appointments that were scheduled to occur 6 months from the date of the Encounter, up to a maximum of 20 appointments. The data comes from all [place] treatment facilities. Appointment Date/Time Appointment Type Appointme nt Facility Name Nov 09, 2023 02:00 PM AMBULATORY - MEDICINE [facility] Lab Results: +/- 30 days of the encounter This section includes the Chemistry and Hematology Lab Results on record with [place] for the patient. Radiology Reports and Pathology Reports are provided separately, in subsequent sections. Lab Results This section contains the Chemistry/Hematology Results that were resulted 30 days before or 30 daysafter the date of the Encounter. Date/Time Source Result Type Result - Unit Interpretation Reference Range Comment Oct 31, 2023 10:36 AM [facility] PROTEIN/CREATININE RATIO PANEL, URINE Specimen Type: URINE No comment entered. Ordering Provider: GALE ARNOLD Report Released Date/Time: Oct 25, 2023 12:46 PM Reporting Lab: [facility] [address] [facility] [address] Performing Lab: [facility] [address] [facility] [address] CREATININE URINE 55.08 mg/dL UR PROTEIN/CREATI NINE RATIO canc <0.2 PROTEIN, URINE < 6.8 mg/dL 0.0-20.0 Oct 31, 2023 10:36 AM [facility] BASIC METABOLIC PANEL (fasting) Specimen Type: SERUM No comment entered. Ordering Provider: GALE ARNOLD Report Released Date/Time: Oct 25, 2023 12:46 PM Reporting Lab: [facility] [address] [facility] [address] Performing Lab: [address] [address] UREA NITROGEN 15 mg/dL 7-25 GLUCOSE 101 mg/dL H 65-100 SODIUM 140 mmol/L 135-145 POTASSIUM 4.3 mmol/L 3.5-5.0 CHLORIDE 108 mmol/L 100-110 CO2 23 meq/L 20-30 CREATININE, Serum 1.22 mg/dL 0.50-1.40 eGFR(CKD-EPI 2020) 69 mL/min >60 Oct 31, 2023 10:36 AM [facility] LIPID PANEL FASTING Specimen Type: SERUM No comment entered. Ordering Provider: GALE ARNOLD Report Released Date/Time: Oct 25, 2023 12:46 PM Reporting Lab: [facility] [address] [facility] [address] Performing Lab: [address] [address] CHOLESTEROL 254 mg/dL H TRIGLYCERIDE 108 mg/dL 0-150 LDL calculated 174 mg/dL H 0-129 CHOL/HDL 4.4 HDL CHOLESTEROL 58 mg/dL 40-60 Oct 31, 2023 10:36 AM [facility] LIVER FUNCTION Specimen Type: SERUM No comment entered. Ordering Provider: GALE ARNOLD Report Released Date/Time: Oct 25, 2023 12:46 PM Reporting Lab: [address] [address] Performing Lab: [address] [address] PROTEIN,TOTAL 7.6 g/dL 6.0-8.3 ALBUMIN 4.2 g/dL 3.5-5.0 ALKALINE PHOSPHATASE 60 U/L 40-150 AST 31 U/L 5-34 ALT 33 U/L BILIRUBIN, TOTAL 1.1 mg/dL 0.2-1.2 Oct 31, 2023 10:36 AM [facility] CBC AND DIFF (AUTO) Specimen Type: BLOOD No comment entered. Ordering Provider: GALE ARNOLD Report Released Date/Time: Oct 25, 2023 12:46 PM Reporting Lab: [address] [address] Performing Lab: [address] [place] [address] WBC 5.10 10*3/uL 4.50-11.00 RBC 4.69 10*6/uL 4.23-5.66 HGB 14.0 g/dL 12.8-17 HCT 43.1 39.2-50.4 MCV 91.9 fL 82-99 MCHC 32.5 g/dL 30.8-35.1 PLT 250 10*3/uL 140-360 RDW-CV 12.5 12.0-16.0 [place], Abs 0.36 10*3/uL 0.30-1.10 MCH 29.9 pg 26.2-32.6 Neut % 50.6 43.7-75.8 Lymph % 38.8 14.0-42.3 [place] % 7.1 5.1-13.7 Eos % 2.5 0.4-6.8 Baso % 0.8 0.1-2.0 Neut, Abs 2.58 10*3/uL 2.20-7.60 Lymph, Abs 1.98 10*3/uL 1.00-3.20 Eos, Abs 0.13 10*3/uL 0.03-0.44 Baso, Abs 0.04 10*3/uL 0.01-0.13 Immature Gran % 0.2 0.0-0.7 Immature Gran, Abs 0.01 10*3/uL 0.00-0.06 Oct 31, 2023 10:36 AM [facility] HEMOGLOBIN A1C PANEL Specimen Type: BLOOD [...] Oct 25, 2023 12:46 PM Reporting Lab: [address] [address] Performing Lab: [address] [address] HEMOGLOBIN A1C 5.4 4.0-5.6 Oct 31, 2023 10:36 AM [facility] TSH Specimen Type: SERUM No comment entered. Ordering Provider: GALE ARNOLD Report Released Date/Time: Oct 25, 2023 12:46 PM Reporting Lab: [facility] [address] [address] Performing Lab: [facility] [address] [address] TSH 0.83 u[IU]/mL 0.35-5.00 Oct 31, 2023 10:36 AM [facility] CREATININE (eGFR 2020) Specimen Type: SERUM No comment entered. Ordering Provider: GALE ARNOLD Report Released Date/Time: Oct 25, 2023 12:46 PM Reporting Lab: [address] [address] Performing Lab: [address] [address] CREATININE, Serum 1.22 mg/dL 0.50-1.40 eGFR(CKD-EPI 2020) 69 mL/min >60 Oct 31, 2023 10:36 AM [facility] URINALYSIS Specimen Type: URINE Comment: If Glucose = >500 and Ketones are positive, please alert the Physician. Ordering Provider: GALE ARNOLD Report Released Date/Time: Oct 25, 2023 12:46 PM Reporting [facility] [address] Performing Lab: [address] [address] UA COLOR Colorless Yellow UA APPEARANCE Clear Clear UA GLUCOSE NEGATIVE mg/dL Negative UA KETONES NEGATIVE mg/dL Negative UA BLOOD NEGATIVE mg/dL Negative UA PROTEIN NEGATIVE mg/dL Negative UA NITRITE NEGATIVE mg/dL Negative UA BILIRUBIN NEGATIVE mg/dL Negative UA SPECIFIC GRAVITY 1.011 L 1.016-1.02 2 UA pH 6.0 5.0-9.0 UA UROBILINOGEN <2.0 mg/dL <2.0 UA LEUKOCYTE NEGATIVE Negative Social History: Smoking Status (Most current) and Tobacco Use (All prior to encounter date) This section includes the most current, and the historical, smoking and tobacco- related health factors from the [place] facility where the Encounter took place. Current Smoking Status This section includes the most current smoking, or tobacco-related health factor, from the [place] facility where the Encounter took place. Date/Time Current Smoking Status Comment Facil ity Sep 26, 2022 08:00 AM [place]-TOBACCO NEVER USED [facility] Encounter Notes: All associated encounter notes This section contains the clinical notes associated to the Encounter. Date/Time Encounter Note(s) Provider Source Nov 07, 2023 12:00 PM NONVA CONSULT: LOCAL TITLE: COMMUNITY CARE-CONSULT RESULT NOTE STANDARD TITLE: NONVA CONSULT DATE OF NOTE: NOV 07, 2023@12:00 ENTRY DATE: NOV 21, 2023@08:50:38 AUTHOR: CHRISTIANO SHERWOOD EXP COSIGNER: URGENCY: STATUS: COMPLETED VistA Imaging - Scanned Document SCANNED DOCUMENT SIGNATURE NOT REQUIRED Electronically Filed: 11/21/2023 by: CHRISTIANO MATOS [facility]
--- OUTSIDE RECORDS SUMMARY | 2024-11-06 04:42 | XMS_ITS ---
Author Name [facility] [place] [facility] [place] [facility] [place] Address [address] [place] [address] Care Team Providers Care Waistline Joiner Lockstitch Name Role Phone ZURI GAMBOA Primary Care [...] CARD) MEDIGAP PLAN C 000 000 , [facility] CE ORGANIZ FAIRV IEW COMMO NS May 27, 2020 [id number] YVES PULIDO PATIENT [facility] CE ORGANIZAT ION CHICO PEE EARLY RETIR May 27, 2020 [id number] YVES PULIDO PATIENT OPTUM RX PRESCRIPT ION HEALT H [place] May 27, 2020 [id number] YVES PULIDO PATIENT Selected Encounter This section includes the information on record at [place] for the Encounter. Date/Time Encounter Type Encounter Description Reason Pro vider Source April 05, 2024 08:48 PM Outpatient Encounter ADMIN PAT ACTIVTIES (MASNONCT) E Encounter Template Text not used by [place] Plan of Treatment: Future Appointments (+ 6 months) and Future Tests (+/- 45 days) The Plan of Treatment section includes future care activities for the patient from all [place] [facility] This section includes future appointments and future orders which are active, pending or scheduled. Future Appointments This section includes appointments that were scheduled to occur 6 months from the date of the Encounter, up to a maximum of 20 appointments. The data comes from all [place] treatment facilities. Appointment Date/Time Appointment Type Appointme nt Facility Name 2024 09:00 AM AMBULATORY - MEDICINE [facility] May 28, 2024 09:30 AM AMBULATORY MEDICINE [facility] Jul 24, 2024 08:30 AM AMBULATORY MEDICINE [facility] Social History: Smoking Status (Most current) and Tobacco Use (All prior to encounter date) This section includes the most current, and the historical, smoking and tobacco- related health factors from the [place] facility where the Encounter took place. Current Smoking Status This section includes the most current smoking, or tobacco-related health factor, from the [place] facility where the Encounter took place. Date/Time Current Smoking Status Comment Facil ity Nov 09, 2023 02:00 PM [place]-TOBACCO NEVER USED [facility] Tobacco Use History This section includes a history of the smoking, or tobacco-related health factors, that were collected on or before the date of the Encounter. The data comes from the [place] facility where the Encounter took place. Date/Time Smoking Status/Tobacco Use Comment F acility Sep 26, 2022 08:00 AM [place]-TOBACCO NEVER USED [facility] Encounter Notes: All associated encounter notes This section contains the clinical notes associated to the Encounter. Date/Time Encounter Note(s) Provider Source April 05, 2024 08:48 PM PHARMACY NOTE: LOCAL TITLE: V1 PHARMACY CUSTOMER CARE MEDICATION RENEWAL STANDARD TITLE: PHARMACY NOTE DATE OF NOTE: APRIL 05, 2024@20:48 ENTRY DATE: APRIL 05, 2024@20:48:58 AUTHOR: KASSIDY BARTON COSIGNER: URGENCY: STATUS: COMPLETED Date: March Division: [place] Pt referred by Pharmacy Call Center for medication renewal: Non-controlled/maintenan ce medication Medications requested: [id number] EZETIMIBE 10MG TAB Defer to primary care provider To be mailed . Please review and renew if appropriate. *This note was generated by [facility]/[place] Pharmacy Customer Care. If you have any questions or need assistance, do not contact this author. Please refer all questions to your local, on-site pharmacy departments. /james/ KASSIDY BARTON CPhT Rotary Slicing Machine Operator, [place]/Pharmacy Customer Care Signed: 04/05/2024 20:49 Receipt Acknowledged By: 04/08/2024 07:51 /es/ ZURI GAMBOA D.O. PHYSICIAN 04/08/2024 08:10 /james/ LARON MOMIN, DOMENIC REGISTERED NURSE KASSIDY BARTON [place] [facility]
--- OUTSIDE RECORDS SUMMARY | 2024-11-06 04:43 | XMS_ITS | Encounter Summary ---
Author Name [facility] [place] [facility] [place] Organization [facility] [place] Address [address] [place] [address] Care Team Providers Care Plate Worker Name Role Phone ZURI GAMBOA Primary Care [...] CARD) MEDIGAP PLAN C 000 000 , [facility] CE ORGANIZ FAIRV IEW COMMO NS May 27, 2020 [id number] YVES PULIDO PATIENT [facility] CE ORGANIZAT ION CHICO PEE EARLY RETIR May 27, 2020 [id number] YVES PULIDO PATIENT OPTUM RX PRESCRIPT ION HEALT H [place] ND May 27, [address] [facility] [id number] YVES PULIDO PATIENT Selected Encounter This section includes the information on record at [place] for the Encounter. Date/Time Encounter Type Encounter Description Reason Pro vider Source May 17, 2024 12:00 PM Outpatient Encounter COMMUNITY CARE CONSULT IHE Encounter Template Text not used by [facility] Plan of Treatment: Future Appointments (+ 6 months) and Future Tests (+/- 45 days) The Plan of Treatment section includes future care activities for the patient from all [place] [facility]. This section includes future appointments and future orders which are active, pending or scheduled. Future Appointments This section includes appointments that were scheduled to occur 6 months from the date of the Encounter, up to a maximum of 20 appointments. The data comes from all [place] treatment facilities. Appointment Date/Time Appointment Type Appointme nt Facility Name May 28, 2024 09:30 AM AMBULATORY - MEDICINE [facility] Jul 24, 2024 08:30 AM AMBULATORY - MEDICINE [facility] Lab Results: +/- 30 days of the encounter This section includes the Chemistry and Hematology Lab Results on record with [place] for the patient. Radiology Reports and Pathology Reports are provided separately, in subsequent sections. Lab Results This section contains the Chemistry/Hematology Results that were resulted 30 days before or 30 daysafter the date of the Encounter. Date/Time Source Result Type Result - Unit Interpretation Reference Range Comment May 06, 2024 08:47 AM [facility] HEPATITIS B SURFACE ANTIBODY (HBsAb)-[place] Specimen Type: SERUM No comment entered. Ordering Provider: EDA ARNOLD Report Released Date/Time: Nov 09, 2023 02:19 PM Reporting Lab: [facility] [address] [facility] [address] Performing Lab: [facility] [address] [facility] [address] HBsAb Non Reactive Non Reactive May 06, 2024 08:47 AM [facility] HEPATITIS A ANTIBODY (IGG) Specimen Type: SERUM Comment: Hep A IgG: A 'Non-reactive ' result indicates no anti-HAV IgG was detected. Ordering Provider: EDA ARNOLD Report Released Date/Time: Nov 09, 2023 02:19 PM Reporting Lab: [address] [address] Performing Lab: [facility] [address] [facility] [address] HEPATITIS A ANTIBODY (IGG) Non Reactive Non Reactive May 06, 2024 08:47 AM [facility] BASIC METABOLIC PANEL (fasting) Specimen Type: SERUM No comment entered. Ordering Provider: EDA ARNOLD Report Released Date/Time: Nov 09, 2023 02:19 PM Reporting Lab: [address] [address] Performing Lab: [address] [address] UREA NITROGEN 14 mg/dL 7-25 GLUCOSE 111 mg/dL H 65-100 SODIUM 141 mmol/L 135-145 POTASSIUM 4.2 mmol/L 3.5-5.0 CHLORIDE 109 mmol/L 100-110 CO2 24 meq/L 20-30 CREATININE, Serum 1.25 mg/dL 0.50-1.40 eGFR(CKD-EPI 2020) 66 mL/min >60 May 06, 2024 08:47 AM [facility] LIVER FUNCTION Specimen Type: SERUM No comment entered. Ordering Provider: EDA ARNOLD Report Released Date/Time: Nov 09, 2023 02:19 PM Reporting Lab: [address] [address] Performing Lab: [address] [address] PROTEIN,TOTAL 7.1 g/dL 6.0-8.3 ALBUMIN 4.1 g/dL 3.5-5.0 ALKALINE PHOSPHATASE 57 U/L 40-150 AST 20 U/L 5-34 ALT 21 U/L BILIRUBIN, TOTAL 1.0 mg/dL 0.2-1.2 May 06, 2024 08:47 AM [facility] LIPID PANEL FASTING Specimen Type: SERUM No comment entered. Ordering Provider: EDA ARNOLD Report Released Date/Time: Nov 09, 2023 02:19 PM Reporting Lab: [address] [address] Performing Lab: [address] [address] CHOLESTEROL 232 mg/dL H TRIGLYCERIDE 139 mg/dL 0-150 LDL calculated 150 mg/dL H 0-129 CHOL/HDL 4.3 HDL CHOLESTEROL 54 mg/dL 40-60 Social History: Smoking Status (Most current) and Tobacco Use (All prior to encounter date) This section includes the most current, and the historical, smoking and tobacco- related health factors from the [place] facility where the Encounter took place. Current Smoking Status This section includes the most current smoking, or tobacco-related health factor, from the [place] facility where the Encounter took place. Date/Time Current Smoking Status Comment Facil ity Nov 09, 2023 02:00 PM [place]-TOBACCO NEVER USED [facility] Tobacco Use History This section includes a history of the smoking, or tobacco-related health factors, that were collected on or before the date of the Encounter. The data comes from the [place] facility where the Encounter took place. Date/Time Smoking Status/Tobacco Use Comment F daniella Sep 26, 2022 08:00 AM VA-TOBACCO NEVER USED [facility]
--- OUTSIDE RECORDS SUMMARY | 2024-11-06 04:43 | XMS_ITS | Encounter Summary ---
Author Name [facility] [place] [facility] [place] Address [address] [place] [address] Care Team Providers Care Commercial Account Manager Name Role Phone ZURI GAMBOA Primary Care [...] (BLUE CARD) MEDIGAP PLAN C 000 000 [phone] , [facility] CE ORGANIZ FAIRV IEW COMMO NS May 27, 2020 [id number] YVES PULIDO PATIENT [facility] CE ORGANIZAT ION CHICO PEE EARLY RETIR May 27, 2020 [id number] YVES PULIDO PATIENT OPTUM RX PRESCRIPT ION HEALT H [place] May 27, 2020 [facility] [id number] YVES PULIDO PATIENT Selected Encounter This section includes the information on record at [place] for the Encounter. Date/Time Encounter Type Encounter Description Reason Pro vider Source May 28, 2024 12:00 AM Outpatient Encounter COMMUNITY CARE CONSULT IHE Encounter Template Text not used by [place] Plan of Treatment: Future Appointments (+ 6 months) and Future Tests (+/- 45 days) The Plan of Treatment section includes future care activities for the patient from all [place] treatmentfacilities. This section includes future appointments and future orders which are active, pending or scheduled. Future Appointments This section includes appointments that were scheduled to occur 6 months from the date of the Encounter, up to a maximum of 20 appointments. The data comes from all [place] treatment facilities. Appointment Date/Time Appointment Type Appointme nt Facility Name Jul 24, 2024 08:30 AM AMBULATORY - MEDICINE [facility] Lab Results: +/- 30 days of the encounter This section includes the Chemistry and Hematology Lab Results on record with [place] for the patient. Radiology Reports and Pathology Reports are provided separately, in subsequent sections. Lab Results This section contains the Chemistry/Hematology Results that were resulted 30 days before or 30 daysafter the date of the Encounter. Date/Time Source Result Type Result - Unit Interpretation Reference Range Comment May 06, 2024 08:47 AM [facility] HEPATITIS B SURFACE ANTIBODY (HBsAb)-[facility] Specimen Type: SERUM No comment entered. Ordering Provider: EDA ARNOLD Report Released Date/Time: Nov 09, 2023 02:19 PM Reporting Lab: [address] [address] Performing Lab: [address] [address] HBsAb Non Reactive Non Reactive May 06, 2024 08:47 AM [facility] HEPATITIS A ANTIBODY (IGG) Specimen Type: SERUM Comment: Hep A IgG: A 'Non-reactive ' result indicates no anti-HAV IgG was detected. Ordering Provider: EDA ARNOLD Report Released Date/Time: Nov 09, 2023 02:19 PM Reporting Lab: [address] [address] Performing Lab: [address] [address] HEPATITIS A ANTIBODY (IGG) Non Reactive Non Reactive May 06, 2024 08:47 AM [facility] BASIC METABOLIC PANEL (fasting) Specimen Type: SERUM No comment entered. Ordering Provider: EDA ARNOLD Report Released Date/Time: Nov 09, 2023 02:19 PM Reporting Lab: [facility] [address] [facility] [address] Performing Lab: [address] [address] UREA NITROGEN 14 mg/dL 7-25 GLUCOSE 111 mg/dL H 65-100 SODIUM 141 mmol/L 135-145 POTASSIUM 4.2 mmol/L 3.5-5.0 CHLORIDE 109 mmol/L 100-110 CO2 24 meq/L 20-30 CREATININE, Serum 1.25 mg/dL 0.50-1.40 eGFR(CKD-EPI 2020) 66 mL/min >60 May 06, 2024 08:47 AM [facility] LIVER FUNCTION Specimen Type: SERUM No comment entered. Ordering Provider: EDA ARNOLD Report Released Date/Time: Nov 09, 2023 02:19 PM Reporting Lab: [address] [address] Performing Lab: [address] [address] PROTEIN,TOTAL 7.1 g/dL 6.0-8.3 ALBUMIN 4.1 g/dL 3.5-5.0 ALKALINE PHOSPHATASE 57 U/L 40-150 AST 20 U/L 5-34 ALT 21 U/L BILIRUBIN, TOTAL 1.0 mg/dL 0.2-1.2 May 06, 2024 08:47 AM [facility] LIPID PANEL FASTING Specimen Type: SERUM No comment entered. Ordering Provider: EDA ARNOLD Report Released Date/Time: Nov 09, 2023 02:19 PM Reporting Lab: [facility] [address] [facility] [address] Performing Lab: [address] [address] CHOLESTEROL 232 mg/dL H TRIGLYCERIDE 139 mg/dL 0-150 LDL calculated 150 mg/dL H 0-129 CHOL/HDL 4.3 HDL CHOLESTEROL 54 mg/dL 40-60 Social History: Smoking Status (Most current) and Tobacco Use (All prior to encounter date) This section includes the most current, and the historical, smoking and tobacco- related health factors from the [place] facility where the Encounter took place. Current Smoking Status This section includes the most current smoking, or tobacco-related health factor, from the [place] facility where the Encounter took place. Date/Time Current Smoking Status Comment Facil ity Nov 09, 2023 02:00 PM [place]-TOBACCO NEVER USED [facility] Tobacco Use History This section includes a history of the smoking, or tobacco-related health factors, that were collected on or before the date of the Encounter. The data comes from the [place] facility where the Encounter took place. Date/Time Smoking Status/Tobacco Use Comment F daniella Sep 26, 2022 08:00 AM [place]-TOBACCO NEVER USED [facility] Encounter Notes: All associated encounter notes This section contains the clinical notes associated to the Encounter. Date/Time Encounter Note(s) Provider Source May 28, 2024 12:00 AM NONVA CONSULT: LOCAL TITLE: COMMUNITY CARE-CONSULT RESULT NOTE STANDARD TITLE: NONVA CONSULT DATE OF NOTE: MAY 28, 2024 ENTRY DATE: JUN 19, 2024@10:27 AUTHOR: JUAN MANUEL RASMUSSEN EXP COSIGNER: URGENCY: STATUS: COMPLETED VistA Imaging - Scanned Document SCANNED DOCUMENT SIGNATURE NOT REQUIRED Electronically Filed: 06/19/2024 by: JUAN MANUEL RASMUSSEN LICENSED PRACTICAL NURSE JUAN MANUEL RASMUSSEN [facility]
--- OUTSIDE RECORDS SUMMARY | 2024-11-06 04:43 | XMS_ITS ---
Author Name [place] Address [address] [place] [address] Care Team Providers Care Manager Social Work Name Role Phone ZURI GAMBOA Primary Care [...] CARD) MEDIGAP PLAN C 000 000 , [facility] CE ORGANIZ FAIRV IEW COMMO NS May 27, 2020 [id number] YVES PULIDO PATIENT [facility] CE ORGANIZAT ION CHICO PEE EARLY RETIR May 27, 2020 [id number] YVES PULIDO PATIENT OPTUM RX PRESCRIPT ION HEALT H NEW ENGLA ND May 27, 2020 [facility] [id number] YVES PULIDO PATIENT Selected Encounter This section includes the information on record at [place] for the Encounter. Date/Time Encounter Type Encounter Description Reason Pro vider Source May 08, 2024 09:36 AM Outpatient Encounter TELEPHONE PRIMARY CARE IHE Encounter Template Text not used by [place] Plan of Treatment: Future Appointments (+ 6 months) and Future Tests (+/- 45 days) The Plan of Treatment section includes future care activities for the patient from all [place] treatmentfacilities. This section includes future appointments and future orders which are active, pending or scheduled. Future Appointments This section includes appointments that were scheduled to occur 6 months from the date of the Encounter, up to a maximum of 20 appointments. The data comes from all [place] treatment facilities. Appointment Date/Time Appointment Type Appointme nt Facility Name 2024 09:00 AM AMBULATORY - MEDICINE [facility] May 28, 2024 09:30 AM AMBULATORY MEDICINE [facility] Jul 24, 2024 08:30 AM [facility] Lab Results: +/- 30 days of the encounter This section includes the Chemistry and Hematology Lab Results on record with [place] for the patient. Radiology Reports and Pathology Reports are provided separately, in subsequent sections. Lab Results This section contains the Chemistry/Hematology Results that were resulted 30 days before or 30 daysafter the date of the Encounter. Date/Time Source Result Type Result - Unit Interpretation Reference Range Comment May 06, 2024 08:47 AM [facility] HEPATITIS B SURFACE ANTIBODY (HBsAb)-WH Specimen Type: SERUM No comment entered. Ordering Provider: EDA ARNOLD Report Released Date/Time: Nov 09, 2023 02:19 PM Reporting Lab: [address] [address] Performing Lab: [facility] [address] HBsAb Non Reactive Non Reactive May 06, 2024 08:47 AM [facility] HEPATITIS A ANTIBODY (IGG) Specimen Type: SERUM Comment: Hep A IgG: A 'Non-reactive ' result indicates no anti-HAV IgG was detected. Ordering Provider: EDA ARNOLD Report Released Date/Time: Nov 09, 2023 02:19 PM Reporting Lab: [address] [address] Performing Lab: [address] [address] HEPATITIS A ANTIBODY (IGG) Non Reactive Non Reactive May 06, 2024 08:47 AM [facility] BASIC METABOLIC PANEL (fasting) Specimen Type: SERUM No comment entered. Ordering Provider: EDA ARNOLD Report Released Date/Time: Nov 09, 2023 02:19 PM Reporting Lab: [address] [address] Performing Lab: [address] [address] UREA NITROGEN 14 mg/dL 7-25 GLUCOSE 111 mg/dL H 65-100 SODIUM 141 mmol/L 135-145 POTASSIUM 4.2 mmol/L 3.5-5.0 CHLORIDE 109 mmol/L 100-110 CO2 24 meq/L 20-30 CREATININE, Serum 1.25 mg/dL 0.50-1.40 eGFR(CKD-EPI 2020) 66 mL/min >60 May 06, 2024 08:47 AM [facility] LIVER FUNCTION Specimen Type: SERUM No comment entered. Ordering Provider: EDA ARNOLD Report Released Date/Time: Nov 09, 2023 02:19 PM Reporting Lab: [address] [address] Performing Lab: [address] [address] PROTEIN,TOTAL 7.1 g/dL 6.0-8.3 ALBUMIN 4.1 g/dL 3.5-5.0 ALKALINE PHOSPHATASE 57 U/L 40-150 AST 20 U/L 5-34 ALT 21 U/L BILIRUBIN, TOTAL 1.0 mg/dL 0.2-1.2 May 06, 2024 08:47 AM [facility] LIPID PANEL FASTING Specimen Type: SERUM No comment entered. Ordering Provider: EDA ARNOLD Report Released Date/Time: Nov 09, 2023 02:19 PM Reporting Lab: [address] [address] Performing Lab: [facility] [address] [facility] [address] CHOLESTEROL 232 mg/dL H TRIGLYCERIDE 139 mg/dL [...] 09, 2023 02:00 PM VA-TOBACCO NEVER USED [facility] Tobacco Use History This section includes a history of the smoking, or tobacco-related health factors, that were collected on or before the date of the Encounter. The data comes from the [place] facility where the Encounter took place. Date/Time Smoking Status/Tobacco Use Comment F acility Sep 26, 2022 08:00 AM VA-TOBACCO NEVER USED [facility] Encounter Notes: All associated encounter notes This section contains the clinical notes associated to the Encounter. Date/Time Encounter Note(s) Provider Source May 08, 2024 09:36 AM LETTERS: LOCAL TITLE: PATIENT LETTER (T) STANDARD TITLE: LETTERS DATE OF NOTE: MAY 08, 2024@09:36 ENTRY DATE: MAY 08, 2024@09:36:12 AUTHOR: CARLITOS JONES COSIGNER: URGENCY: STATUS: COMPLETED DEPARTMENT OF [facility]FF[facility]IRS [facility] Toll Free Number Primary Care Telephone Assistance can be reached at extension [phone] [facility] scheduling can be reached at extension [phone] [facility] scheduling can be reached at ext [phone] BISHNU PULIDO [address], [place], [address] Dear [place], You are not immune to Hepatitis A or B. If you would like to receive the vaccine (we recommend that you do so), it may be given at your upcoming primary care appointment. Your cholesterol is elevated. Please continue your current medication regimen and work on your diet and exercise. Let us know if you would like to see the Police Surgeon. Your recent test results are as follows: LAB CHEMISTRY & HEMATOLOGY Collection DT Specimen Test Name Result Units Ref Range 05/06/2024 08:47 SERUM !! HAV IGG Non Reactive Ref: Non Reactive 05/06/2024 08:47 SERUM HBsAb Non Reactive Ref: Non Reactive 05/06/2024 08:47 SERUM CREATININE, Serum 1.25 mg/dL 0.50 - 1.40 eGFR(CKD-EPI 2020 66 mL/min Ref: >=60 SODIUM 141 mmol/L 135 - 145 POTASSIUM 4.2 mmol/L 3.5 - 5.0 CHLORIDE 109 mmol/L 100 - 110 CO2 24 mEq/L 20 - 30 UREA NITROGEN 14 mg/dL 7 - 25 GLUCOSE 111 H mg/dL 65 - 100 PROTEIN,TOTAL 7.1 g/dL 6.0 - 8.3 ALBUMIN 4.1 g/dL 3.5 - 5.0 ALK BARON 57 U/L 40 - 150 AST 20 U/L 5 - 34 BILIRUBIN, TOTAL 1.0 mg/dL 0.2 - 1.2 CHOLESTEROL 232 H mg/dL <7 - 199 TRIGLYCERIDE 139 mg/dL 0 - 150 LDL calculated 150 H mg/dL 0 - 129 CHOL/HDL 4.3 ALT 21 U/L <6 - 55 HDL CHOLESTEROL 54 mg/dL 40 - 60 !! Indicates COMMENTS AVAILABLE...Refer to Interim Lab Report. Lipid Profile Collection DT Specimen Test Name Result Units Ref Range 05/06/2024 08:47 SERUM CHOLESTEROL 232 H mg/dL <7 - 199 05/06/2024 08:47 SERUM TRIGLYCERIDE 139 mg/dL 0 - 150 05/06/2024 08:47 SERUM HDL CHOLESTEROL 54 mg/dL 40 - 60 05/06/2024 08:47 SERUM LDL calculated 150 H mg/dL 0 - 129 05/06/2024 08:47 SERUM CHOL/HDL 4.3 Please call if you have any questions or concerns. Upcoming Appointments: 2024 09:00 CWM/NO/PACT EIGHT Sincerely, Your Primary Care Team [facility] [address] [address] [place], [place] [id number] [facility] [address] [place] [address] [place] [address] [phone] [facility] [address] [facility] [place] [phone] [place] [address] CARLITOS JONES [facility]
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
--- OUTSIDE RECORDS SUMMARY | 2024-11-06 04:46 | XMS_ITS ---
Author Name [facility] [place] Organization [facility] [place] Address [address] [place] [address] Care Team Providers Care Agricultural Plow Operator Name Role Phone ZURI GAMBOA Primary [...] PLAN C 000 000 [phone] , [facility] CE ORGANIZ FAIRV IEW COMMO NS May 27, 2020 [id number] YVES PULIDO PATIENT [facility] CE ORGANIZAT ION CHICO PEE EARLY RETIR May 27, 2020 [id number] YVES PULIDO PATIENT [facility] RX PRESCRIPT ION HEALT H NEW [place] May 27, 2020 [facility] [phone] YVES PULIDO PATIENT Selected Encounter This section includes the information on record at [place] for the Encounter. Date/Time Encounter Type Encounter Description Reason Provider Source Jul 24, 2024 08:30 AM OFF/OP EST MARCH X REQ PHY/QHP PRIMARY CARE/MEDICINE ICD-10-CM Z23 Encounter for immunization AUGUST MOMIN IHE Encounter Template Text not used by CT Assessments - Encounter Diagnoses This section includes the primary and secondary diagnoses documented for the Encounter. Date/Time Primary/Secondary Diagnosis Diagnosis Name Provider Source Jul 24, 2024 09:05 AM PRIMARY Encounter for immunization AUGUST MOMIN [facility] Immunizations: All administered on the encounter date This section contains immunizations associated to the Encounter. Immunization Series Date Issued Reaction Comments ZOSTER RECOMBINANT Jul 24, 2024 Dilu ent lot # [id number] expiration 05/12/26 Social History: Smoking Status (Most current) and Tobacco Use (All prior to encounter date) This section includes the most current, and the historical, smoking and tobacco- related health factors from the [place] facility where the Encounter took place. Current Smoking Status This section includes the most current smoking, or tobacco-related health factor, from the [place] facility where the Encounter took place. Date/Time Current Smoking Status Comment Facil ity Nov 09, 2023 02:[address]-TOBACCO NEVER USED [facility] Tobacco Use History This section includes a history of the smoking, or tobacco-related health factors, that were collected on or before the date of the Encounter. The data comes from the [place] facility where the Encounter took place. Date/Time Smoking Status/Tobacco Use Comment F acility Sep 26, 2022 08:[address]-TOBACCO NEVER USED [facility] Encounter Notes: All associated encounter notes This section contains the clinical notes associated to the Encounter. Date/Time Encounter Note(s) Provider Source Jul 24, 2024 09:01 AM PRIMARY CARE OUTPATIENT NOTE: LOCAL TITLE: AMBULATORY/OUTPATIENT CARE NOTE STANDARD TITLE: PRIMARY CARE OUTPATIENT NOTE DATE OF NOTE: JUL 24, 2024@09:01 ENTRY DATE: JUL 24, 2024@09:01:35 AUTHOR: GELY MOMIN EXP COSIGNER: URGENCY: STATUS: COMPLETED Herpes Zoster (Shingles) Vaccine: Administered: ZOSTER RECOMBINANT Date Administered: Jul 24, 2024 08:30 Dispatcher Ship Pilot: [employer] SA Lot: [id number] Exp Date: May 12, 2026 [facility]: [id number] Admin Route/Site: INTRAMUSCULAR/LEFT DELTOID Dosage: 0.5mL Vaccine Information Statement(s): RECOMBINANT ZOSTER VACCINE VIS Dec 31, 2021 ([facility]) Order By: Policy Administered By: Gely Momin Comment: Diluent lot # [id number] expiration 05/12/26 Vaccine Information Sheet (VIS) was given to the patient/caregiver, education regarding adverse reactions was discussed, as well as barriers to learning, if any, were acknowledged. tolerated procedure well, left clinic ambulatory. /es/ GELY MOMIN RN REGISTERED NURSE Signed: 07/24/2024 09:[address] [facility]
--- OUTSIDE RECORDS SUMMARY | 2024-11-06 04:46 | XMS_ITS | Encounter Summary ---
Author Name [facility] [place] Organization [facility] [place] Address [address] [place] [address] Care Team Providers Care Personalization Specialist Name Role Phone ZURI GAMBOA Primary Care [...] (BLUE CARD) MEDIGAP PLAN C 000 000 [phone] , [facility] CE ORGANIZ FAIRV IEW COMMO NS May 27, 2020 [id number] YVES PULIDO PATIENT [facility] CE ORGANIZAT ION CHICO PEE EARLY RETIR May 27, 2020 [id number] YVES PULIDO PATIENT OPTUM RX PRESCRIPT ION HEALT H NEW [place]LA [place] May 27, 2020 [facility] [id number] YVES PULIDO PATIENT Selected Encounter This section includes the information on record at [place] for the Encounter. Date/Time Encounter Type Encounter Description Reason Pro vider Source Jun 20, 2024 12:00 PM Outpatient Encounter COMMUNITY CARE CONSULT IHE Encounter Template Text not used by VA Plan of Treatment: Future Appointments (+ 6 months) and Future Tests (+/- 45 days) The Plan of Treatment section includes future care activities for the patient from all [place] [facility]. This section includes future appointments and future orders which are active, pending or scheduled. Future Appointments This section includes appointments that were scheduled to occur 6 months from the date of the Encounter, up to a maximum of 20 appointments. The data comes from all [place] treatment facilities. Appointment Date/Time Appointment Type Appointme nt Facility Name Jul 24, 2024 08:30 AM AMBULATORY - MEDICINE [facility] Social History: Smoking Status (Most current) and Tobacco Use (All prior to encounter date) This section includes the most current, and the historical, smoking and tobacco- related health factors from the [place] facility where the Encounter took place. Current Smoking Status This section includes the most current smoking, or tobacco-related health factor, from the [place] facility where the Encounter took place. Date/Time Current Smoking Status Comment Facil ity Nov 09, 2023 02:00 PM [place]-TOBACCO NEVER USED [facility] Tobacco Use History This section includes a history of the smoking, or tobacco-related health factors, that were collected on or before the date of the Encounter. The data comes from the [place] facility where the Encounter took place. Date/Time Smoking Status/Tobacco Use Comment F acility Sep 26, 2022 08:00 AM [place]-TOBACCO NEVER USED [facility] Encounter Notes: All associated encounter notes This section contains the clinical notes associated to the Encounter. Date/Time Encounter Note(s) Provider Source Jun 20, 2024 12:00 PM ACUPUNCTURE CONSUL T: LOCAL TITLE: CONSULT REPORT/ACUPUNCTURE STANDARD TITLE: ACUPUNCTURE CONSULT DATE OF NOTE: JUN 20, 2024@12:00 ENTRY DATE: JUL 17, 2024@05:46:17 AUTHOR: DEBO ACKERMAN MA EXP COSIGNER: URGENCY: STATUS: COMPLETED VistA Imaging - Scanned Document SCANNED DOCUMENT SIGNATURE NOT REQUIRED Electronically Filed: 07/17/2024 by: DEBO ACKERMAN DIRECTOR VETERINARY DEBO ACKERMAN [facility]
--- OUTSIDE RECORDS SUMMARY | 2024-11-06 04:46 | XMS_ITS | Encounter Summary ---
Author Name Department of Veter[facility] [place] Organization [facility] [place] Address [address] [place] [address] Care Team Providers Care Social Media Developer Name Role Phone ZURI GAMBOA Primary Care [...] CARD) MEDIGAP PLAN C 000 000 , [facility] CE ORGANIZ FAIRV IEW COMMO NS May 27, 2020 [id number] YVES PULIDO PATIENT [facility] CE ORGANIZAT ION CHICO PEE EARLY RETIR May 27, 2020 [id number] YVES PULIDO PATIENT OPTUM RX PRESCRIPT ION HEALT H NEW [place] May 27, 2020 [facility] [id number] YVES PULIDO PATIENT Selected Encounter This section includes the information on record at [place] for the Encounter. Date/Time Encounter Type Encounter Description Reason Pro vider Source Jun 18, 2024 12:00 PM Outpatient Encounter COMMUNITY CARE CONSULT IHE Encounter Template Text not used by VA Plan of Treatment: Future Appointments (+ 6 months) and Future Tests (+/- 45 days) The Plan of Treatment section includes future care activities for the patient from all [place] treatmentfac[facility]munity healthities. This section includes future appointments and future orders which are active, pending or scheduled. Future Appointments This section includes appointments that were scheduled to occur 6 months from the date of the Encounter, up to a maximum of 20 appointments. The data comes from all [place] treatment facilities. Appointment Date/Time Appointment Type Appointme nt Facility Name Jul 24, 2024 08:30 AM AMBULATORY - MEDICINE [facility] Social History: Smoking Status (Most current) and Tobacco Use (All prior to encounter date) This section includes the most current, and the historical, smoking and tobacco- related health factors from the [place] facility where the Encounter took place. Current Smoking Status This section includes the most current smoking, or tobacco-related health factor, from the [place] facility where the Encounter took place. Date/Time Current Smoking Status Comment Facil ity Nov 09, 2023 02:00 PM [place]-TOBACCO NEVER USED [facility] Tobacco Use History This section includes a history of the smoking, or tobacco-related health factors, that were collected on or before the date of the Encounter. The data comes from the [place] facility where the Encounter took place. Date/Time Smoking Status/Tobacco Use Comment F acility Sep 26, 2022 08:00 AM [place]-TOBACCO NEVER USED [facility] Encounter Notes: All associated encounter notes This section contains the clinical notes associated to the Encounter. Date/Time Encounter Note(s) Provider Source Jun 18, 2024 12:00 PM ACUPUNCTURE CONSUL T: LOCAL TITLE: CONSULT REPORT/ACUPUNCTURE STANDARD TITLE: ACUPUNCTURE CONSULT DATE OF NOTE: JUN 18, 2024@12:00 ENTRY DATE: JUL 17, 2024@05:36:08 AUTHOR: DEBO ACKERMAN MA EXP COSIGNER: URGENCY: STATUS: COMPLETED VistA Imaging - Scanned Document SCANNED DOCUMENT SIGNATURE NOT REQUIRED Electronically Filed: 07/17/2024 by: DEBO ACKERMAN HISTOLOGY TECH DEBO ACKERMAN [facility]
--- OUTSIDE RECORDS SUMMARY | 2024-11-06 04:47 | XMS_ITS ---
Author Name [facility] [place] Address [address] [place] [address] Care Team Providers Care State Highway Police Officer Name Role Phone ZURI GAMBOA Primary [...] CARD) MEDIGAP PLAN C 000 000 , [facility] CE ORGANIZ FAIRV IEW COMMO NS May 27, 2020 [id number] YVES PULIDO PATIENT [facility] CE ORGANIZAT ION CHICO PEE EARLY RETIR May 27, 2020 [id number] YVES PULIDO PATIENT OPTUM RX PRESCRIPT ION HEALT H NEW [place] May 27, 2020 [facility] [id number] YVES PULIDO PATIENT Selected Encounter This section includes the information on record at [place] for the Encounter. Date/Time Encounter Type Encounter Description Reason Pro vider Source Sep 27, 2024 02:20 PM Outpatient Encounter ADMIN PAT ACTIVTIES (MASNONCT) IHE Encounter Template Text not used by [place] Social History: Smoking Status (Most current) and Tobacco Use (All prior to encounter date) This section includes the most current, and the historical, smoking and tobacco- related health factors from the [place] facility where the Encounter took place. Current Smoking Status This section includes the most current smoking, or tobacco-related health factor, from the [place] facility where the Encounter took place. Date/Time Current Smoking Status Comment Facil ity Nov 09, 2023 02:00 PM [place]-TOBACCO NEVER USED [facility] Tobacco Use History This section includes a history of the smoking, or tobacco-related health factors, that were collected on or before the date of the Encounter. The data comes from the [place] facility where the Encounter took place. Date/Time Smoking Status/Tobacco Use Comment [facility]irit Sep 26, 2022 08:00 AM [place]-TOBACCO NEVER USED [facility] Encounter Notes: All associated encounter notes This section contains the clinical notes associated to the Encounter. Date/Time Encounter Note(s) Provider Source Sep 27, 2024 02:20 PM PHARMACY NOTE: LOCAL TITLE: PHARMACY CUSTOMER CARE MEDICATION RENEWAL STANDARD TITLE: PHARMACY NOTE DATE OF NOTE: SEP 27, 2024@14:20 ENTRY DATE: SEP 27, 2024@14:21:03 AUTHOR: RAJIV DENNISON EXP COSIGNER: URGENCY: STATUS: COMPLETED Date: Sep Division: [facility] referred by Pharmacy Call Center for medication renewal: Non-controlled/maintenanc e medication Medications requested: [id number] LOSARTAN 50MG TAB Defer to primary care provider To be mailed . Please review and renew if appropriate. *This note was generated by [facility] [facility]. If you have any questions or need assistance, do not contact this author. Please refer all questions to your local, on-site pharmacy departments. /james/ RAJIV DENNISON Signed: 09/27/2024 14:21 Receipt Acknowledged By: 09/27/2024 16:01 /james/ ZURI GAMBOA D.O. PHYSICIAN 09/27/2024 14:32 /james/ LARON MOMIN, DOMENIC REGISTERED NURSE RAJIV DENNISON [facility]
== END 2024-11-01 07:00 | disposition home or self-care (01) ==
LOC: HO.LAB 06:59
PROVIDERS: PCP Internal Medicine Medical Oncology; Visit Provider Internal Medicine Medical Oncology
DX: E66.9 Obesity, unspecified (principal); Z12.5 Encounter for screening for malignant neoplasm of prostate; N40.0 Benign prostatic hyperplasia without lower urinary tract symptoms; E78.2 Mixed hyperlipidemia
CPT/HCPCS: 36415; 80053; 80061; 84153; 85025

== ENCOUNTER 2024-11-13 08:14 | Outpatient (AMB) | payer OTHER, SELFPAY ==
--- NOTE | 2024-11-13 08:17 | MHC.OFFVIS ---
Vital Signs 11/13/24 08:25 Height 5 ft 7 in Weight 217 lb BMI 34.0 BP 162/83 H Blood Pressure Location Rt brachial Position Sitting Pulse 73 Intake Visit Reasons: Lump on anus Intake Note: Patient referred by pcp Dr. Ramos for concerning lump on anus. Has been present for 5wks. Patient c/o: painful, bleeding, itchy, Denies diarrhea, constipation. Railroad Switchman Required: No Accompanied by: Self / Same As Patient Allergies Hsmiifr-SGA-KrH Reductase Inhibitor [NOGXKMZ-FSU-MKF REDUCTASE INHIBITOR] Allergy (Severe, Verified 11/13/24 08:22) SEVERE HIVES statins Allergy (Unknown, Uncoded 11/13/24 08:22) hives HPI Comments Details: Patient presents for evaluation of an anorectal hemorrhoids/mass. He has had this a few weeks time. It spontaneously drained roughly a week ago bloody fluid and now presents here for further evaluation. His symptoms have markedly improved. Patient has had recent colonoscopy in the past. He otherwise has no other JULIA significant issues or complaints. Tired diet. Has regular bowel habits. No appreciable history of constipation. He denies any anal receptive practice. Chart was reviewed and patient evaluated [facility] Medical History Snoring Hypersomnia Dislocation of right shoulder joint Low back pain Surgical History S/P surgery for recurrent dislocation of shoulder Status post discectomy for herniated nucleus pulposus History of surgical removal of ganglion cyst H/O colonoscopy History of carpal tunnel surgery S/P left knee arthroscopy Family History Mother Diabetes Hyperlipidemia Hypertension Father Alcohol abuse Social History Patient Tobacco Use Status: Never used Tobacco Current occupational status: retired Current occupation: rt hand dominant Physical Exam Vital Signs: Last Vital Signs Pulse 73 11/13/24 08:25 BP 162/83 H 11/13/24 08:25 BMI result Body Mass Index 34.0 GI Other: Abdomen corpulent, soft, benign rectal exam demonstrates a resolving right lateral upper quadrant thrombosed hemorrhoid. Rectal exam was deferred secondary to patient's discomfort. No other gross pathology demonstrated. Assessment & Plan Assessment & Plan (1) Thrombosed external hemorrhoids: Code(s): K64.5 - Perianal venous thrombosis Category: Surgical Plan At present, patient will be treated conservatively. He has been given suggestions regarding drinking more water, stool softeners, bran, Sitz baths, and will see me in a few weeks' time for follow-up. She had this system progressively worsened during this interim, he has been instructed to contact the office will otherwise see me as directed. All questions answered. Coding Level of Care Code New Pt Level 4 (02699) Diagnoses Thrombosed external hemorrhoids K64.5
[2024-11-13 08:25] VITALS: BP 162/83; PULSE 73; BMI 34.0
--- OUTSIDE RECORDS SUMMARY | 2024-11-13 08:25 | XMS_ITS ---
Author Organization Rusty Ramos III, MD Address [address] [place] [address] [place] [address] Care Team Providers Care Community Health Nurse Name Role Phone [facility] ider Unavailable Rusty Ramos Unavailable [phone] REASON FOR VISIT New Refill Request Medications [...] Date Provider Diagnosis Rusty Ramos III, MD [address] [place] [address] [place] [address] 04/14/2024 Rusty Ramos Obesity (BMI 30.0-34.9) E66.9 [...] Provider Name:Rusty Ramos 11/19/2024 09:15:00 AM, [address] [facility] [address], [place], [address], Provider Name:Rusty Ramos, 11/06/2025 10:00:00 AM, [address] [place] [address] [address], [place], [address], Progress Notes * Dustin WEEKSDOB:1965 (58 yo M)Acc No.[id number]:04/14/2024 Patient:?Dustin Weeks :1965???Age:58 Y???Sex:Male Address:[address] [place] [address] [place], [address] * Refills? Refill Ibuprofen Tablet, 800 MG, Orally, 40, TAKE 1 TABLET BY MOUTH EVERY 6 HOURS NEEDED WITH FOOD OR MILK, every 6 hrs, 10 days, Refills=11 * true * Date:? Generated for Eamon aleman/Jeremiah/Mavericksmitting on:?11/13/2024 08:25 AM EST
--- OUTSIDE RECORDS SUMMARY | 2024-11-13 08:25 | XMS_ITS ---
Author Organization Rusty Ramos III, MD Address [address] [facility] [place] [address] Care Team Providers Care Test Evaluator Name Role Phone [facility] ider Unavailable Rusty Ramos Unavailable [phone] Allergies Allergen (clinical drug ingredient) Drug/Non Drug Allergy documented on EMR Reaction Allergy Type Onset Date Status Substance with 3-tzaufbx-2-methylgluta ryl-coenzyme A reductase inhibitor mechanism of action [...] Jennie Ontiveros CMA 11/05 01:21:01 PM Called [place] [facility] made patient appt for [...] Problem Status W/U Status Risk Notes Problem [id number] Mass of anus (K62.89) Active confirmed There [...] a day triamcinolone. He is leaving for [place] until March of 2025. On November 28.. [...] Date Provider Diagnosis Rusty Ramos III, MD [address] [place] [address] [address] [place], [place] [address] 11/05/2024 Rusty Ramos Mass of anus K62.89 [...] a day triamcinolone. He is leaving for [place] until March of 2025. On November 28.. [...] OV Provider Name:Rusty Ramos, 11/19/2024 09:15:00 AM, [address] [place] [address] [address], [place], [address], Provider Name:Rusty Ramos, 11/06/2025 10:00:00 AM, [address] [place] [address] [address], [place], [address], Progress Notes * Dustin WEEKSDOB:1965 (59 yo M)Acc No.[id number]:11/05/2024 Progress Notes Patient:?MICKY Dustin Provider:?Rusty Ramos MD :1965???Age:59 Y???Sex:Male Gautam e:11/05/2024 Address:[address] [place], [place] [address], [phone] Pcp:[facility] enter Subjective: * [...] 2017colonoscopy for hematochezia, age 38, negative findings [id number] herniated disk removal 11/2019left and right trigger [...] point) ?Points?1 ?Interpretation?Negative ???He was born in [place], [place] and came to [facility] at the age of 8. He has been to Eunice for 35 years and they have 3 children, Kylah 35, Dustin 33 and Tristian, who is adopted,. 16. They have 5 healthy grandchildren. 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 He has worked in the past on [...] a day triamcinolone.? He is leaving for [place] until March of 2025.? On November 28..? [...] * ?BLD Negative Negative - * Procedure Codes:?60713 CCIIV 4 VAC NO PRSV 0.5 ML [id number] URINE-NO [id number] FLU VACC 4 ANASTACIO 3 YRS PLUS [id number] TEST FOR BLOOD, FECES * Preventive Medicine:? [...] Ramos MD Date:?10/27 Generated for Printi ng/Jeremiah/eTransmitting on:?11/13/2024 08:25 AM EST History and Physical Notes * [...] Score: 0 COVID-19 Screening Questions Have you had any new onset fever, chills, cough, congestion, sore throat, shortness of breath, muscle aches?: No Have you been exposed to the virus withi n the last 10 days?: No Have you travelled internationally in last 10 days?: No Have you been [...]
--- OUTSIDE RECORDS SUMMARY | 2024-11-13 08:26 | XMS_ITS | Continuity of Care Document ---
Author Name [facility] Organization [facility] Care Team Providers Care Tractor Expert Name Role Phone [facility] Unavailable Unavailable Problems Combined list of problems [...] DAILY FOR BLOOD PRESSURE /HEART Active 01/23/2025 [id number] GALE ARNOLD JAWED 2023 90 [facility] COZAAR (BRAND) 50 MG ORAL TAB TAKE ONE TABLET BY MOUTH ONCE DAILY FOR BLOOD PRESSURE /HEART Active 01/23/2025 [id number] 4 GALE ARNOLD JAWED 2023 90 [facility] COZAAR (BRAND) 50 MG ORAL TAB TAKE ONE TABLET BY MOUTH ONCE DAILY FOR BLOOD PRESSURE /HEART 11/09/2024 [id number] GALE ARNOLD JAWED 2022 90 [facility] COZAAR (BRAND) 50 MG ORAL TAB TAKE ONE TABLET BY MOUTH ONCE DAILY FOR BLOOD PRESSURE /HEART 11/09/2024 [id number] GALE ARNOLD JAWED 2022 90 [facility] ezetimibe (U/D) 10 MG ORAL TAB TAKE ONE TABLET BY MOUTH ONCE DAILY TO LOWER CHOLESTE ROL Active 04/09/2025 [id number] FURCOLO, ZURI 2023 90 [facility] ezetimibe (U/D) 10 MG ORAL TAB TAKE ONE TABLET BY MOUTH ONCE DAILY TO LOWER CHOLESTE ROL Discont inued 06/29/2024 [id number] GALE ARNOLD JAWED 2023 90 [facility] EZETIMIBE 10MG TAB TAKE ONE TABLET BY MOUTH ONCE DAILY TO LOWER CHOLESTE ROL ORAL ACTIVE 04/09/2025 [id number] FURCOLO,T TASHIA 2023 90 [facility] EZETIMIBE 10MG TAB TAKE ONE TABLET BY MOUTH ONCE DAILY TO LOWER CHOLESTE ROL ORAL DISCONT INUED 06/29/2024 [id number] WILFREDO ARNOLD JAWED 2022 90 [facility] [place] Ibuprofen (Motrin) Tablet 800 mg Oral TAKE ONE TABLET BY MOUTH TWICE DAILY NEEDED FOR PAIN TAKE WITH FOOD Active 05/17/2025 [id number] FURCOLO, ZURI 2023 90 [facility] Ibuprofen (Motrin) Tablet 800 mg Oral TAKE ONE TABLET BY MOUTH TWICE DAILY NEEDED FOR PAIN TAKE WITH FOOD Discont inued 06/29/2024 [id number] GALE ARNOLD JAWED 2023 60 [facility] IBUPROFEN 800MG TAB TAKE ONE TABLET BY MOUTH TWICE DAILY NEEDED FOR PAIN TAKE WITH FOOD ORAL ACTIVE 05/17/2025 [id number] 4 FURCOLO,T TASHIA 2023 90 [facility] [place] IBUPROFEN 800MG TAB TAKE ONE TABLET BY MOUTH TWICE DAILY NEEDED FOR PAIN TAKE WITH FOOD ORAL DISCONT INUED 06/29/2024 [id number] WILFREDO ARNOLD JAWED 2022 60 [facility] LOSARTAN 50MG TAB TAKE ONE TABLET BY MOUTH ONCE DAILY FOR BLOOD PRESSURE /HEART ORAL ACTIVE 09/28/2025 [id number] EMILYCOLO,T TASHIA 2023 90 [facility] LOS[place]AN 50MG TAB TAKE ONE TABLET BY MOUTH ONCE DAILY FOR BLOOD PRESSURE /HEART ORAL DISCONT INUED 01/23/2025 [id number] WILFREDO ARNOLD JAWED 2023 90 [facility] [place] 50MG TAB TAKE ONE TABLET BY MOUTH ONCE DAILY FOR BLOOD PRESSURE /HEART ORAL DISCONT INUED 11/09/2024 [id number] [facility] 90 [facility] Allergies, Adverse Reactions, Alerts Combined list of allergies from Department of Defense and Veterans Affairs facilities. It does not include entries that were removed or entered in error. 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 Immunization Series Date Given Administered By Site Reaction Lot Number CVX Code Drug Home Care Physical Therapist Status Comments Source ZOSTER RECOMBINANT 2023 AUGUST MOMIN E LEFT DELTO ID [id number] 187 complet ed Diluent lot # [id number] expiratio n 05/12/26 [facility] [place] ZOSTER RECOMBINANT 2023 BAR[facility] [...] [facility] COVID-19 (Groupiter), MRNA, LNP-S, PF, 30 MCG/0.3 ML DOSE, JENNIFER-SUCROSE (AGES 12+ YEARS) 4 2021 217 complet ed Lot#: [id number] Mfr: Groupiter, Cinemur [facility] COVID-19 (PFIZER), MRNA, LNP-S, PF, 30 MCG/0.3 ML DOSE 3 2020 208 complet ed Lot#: [id number] Mfr: Groupiter, [employer]emur [facility] [place] COVID-19 (PFIZER), MRNA, LNP-S, PF, 30 MCG/0.3 ML DOSE 2 2020 208 complet ed Lot#: [id number] Mfr: Groupiter, [employer]em[employer] [facility] [place] COVID-19 (PFIZER), MRNA, LNP-S, PF, 30 MCG/0.3 ML DOSE 1 2020 208 complet ed Lot#: [id number] Mfr: Groupiter, Cinemur [facility] [place] [facility] Results Combined list of recent chemistry, hematology and other laboratory results from Department of Defense and Veterans Affairs, ranging from 15 months to all on record, depending upon the facility. Order Name Results Value Reference Range Date Interpretation Specimen Comments Source HEPATITI S B SURFACE ANTIBODY (HBsAb)- WH HEPATITIS B VIRUS SURFACE AB [PRESENCE] IN SERUM BY IMMUNOASSA Y Non Reactive 05/06 Specimen Type: SERUM No comment entered. Ordering Provider: ROB ARNOLD Report Released Date/Time: Nov 09, 2023 02:19 PM Reporting Lab: [facility] [address] [address] Performing Lab: [facility] [address] [facility] [address] [facility]ITALN [facility] HEPATITI S A ANTIBODY (IGG) HEPATITIS A VIRUS IGG AB [PRESENCE] IN SERUM Non Reactive 05/06 Specimen Type: SERUM Comment: Hep A IgG: A 'Non-reacti ve' result indicates no anti-HAV IgG was detected. Ordering Provider: ROB ARNOLD Report Released Date/Time: Nov 09, 2023 02:19 PM Reporting Lab: [facility]ITALRDECATUR [facility]PITALN [facility] [address] [facility] [address] Performing Lab: [facility]ITALRDECATUR [facility]PITALN [facility]ITALUSEA[facility] [address] [facility] [address] [facility] BASIC METABOLI C PANEL (fasting ) UREA NITROGEN [MASS/VOLU ME] IN SERUM OR PLASMA 14 mg/dL 7 - 25 05/06 Specimen Type: SERUM No comment entered. Ordering Provider: ROB ARNOLD Report Released Date/Time: Nov 09, 2023 02:19 PM Reporting Lab: [facility]ITALRDECATUR [facility]OSPITALN [facility]ITAL[facility] [address] [facility] [address] Performing Lab: [facility]ITALRL TRN [facility]ITAL[facility] [address] [facility] [address] [facility] BASIC METABOLI C PANEL (fasting ) GLUCOSE [MASS/VOLU ME] IN SERUM OR PLASMA 111 mg/dL 65 - 100 05/06 H Specimen Type: SERUM No comment entered. Ordering Provider: ROB ARNOLD Report Released Date/Time: Nov 09, 2023 02:19 PM Reporting Lab: [facility]ITALRL [facility]N [facility] [address] [facility] [address] Performing Lab: [facility]ITALRL [facility]N [facility] [address] [facility] [address] [facility] BASIC METABOLI C PANEL (fasting ) SODIUM [MOLES/VOL UME] IN SERUM OR PLASMA 141 mmol/L 135 - 145 05/06 Specimen Type: SERUM No comment entered. Ordering Provider: ROB ARNOLD Report Released Date/Time: Nov 09, 2023 02:19 PM Reporting Lab: [facility] [place] [facility] [address] [facility] [address] Performing Lab: [facility] [place] [facility] [address] [facility] [address] [facility] [place] [facility] BASIC METABOLI C PANEL (fasting ) POTASSIUM [MOLES/VOL UME] IN SERUM OR PLASMA 4.2 mmol/L 3.5 - 5.0 05/06 Specimen Type: SERUM No comment entered. Ordering Provider: ROB ARNOLD Report Released Date/Time: Nov 09, 2023 02:19 PM Reporting Lab: [facility] [place] [facility] [address] [facility] [address] Performing Lab: [facility] [place] [facility] [address] [facility] [address] [facility] [place] [facility] BASIC METABOLI C PANEL (fasting ) CHLORIDE [MOLES/VOL UME] IN SERUM OR PLASMA 109 mmol/L 100 - 110 05/06 Specimen Type: SERUM No comment entered. Ordering Provider: ROB ARNOLD Report Released Date/Time: Nov 09, 2023 02:19 PM Reporting Lab: [facility] [place] [facility] [address] [facility] [address] Performing Lab: [facility] [place] [facility] [address] [facility] [address] [facility] [place] [facility] BASIC METABOLI C PANEL (fasting ) CARBON DIOXIDE, TOTAL [MOLES/VOL UME] IN SERUM OR PLASMA 24 meq/L 20 - 30 05/06 Specimen Type: SERUM No comment entered. Ordering Provider: ROB ARNOLD Report Released Date/Time: Nov 09, 2023 02:19 PM Reporting Lab: [facility] [place] [facility] [address] [facility] [address] Performing Lab: [facility] [place] [facility] [address] [facility] [address] [facility] [place] [facility] BASIC METABOLI C PANEL (fasting ) CREATININE [MASS/VOLU ME] IN SERUM OR PLASMA 1.25 mg/dL 0.50 - 1.40 05/06 Specimen Type: SERUM No comment entered. Ordering Provider: ROB ARNOLD Report Released Date/Time: Nov 09, 2023 02:19 PM Reporting Lab: [facility] [place] [facility] [address] [facility] [address] Performing Lab: [facility] [place] [facility] [address] [facility] [address] [facility] [place] [facility] BASIC METABOLI C PANEL (fasting ) GLOMERULAR FILTRATION RATE/1.73 SQ M.PREDICTE D [VOLUME RATE/AREA] IN SERUM, PLASMA OR BLOOD BY CREATININE -BASED FORMULA (CKD-EPI 2020) 66 mL/min 60 05/06 Specimen Type: SERUM No comment entered. Ordering Provider: ROB ARNOLD Report Released Date/Time: Nov 09, 2023 02:19 PM Reporting Lab: [facility] [place] [facility] [address] [facility] [address] Performing Lab: [facility] [place] [place] [facility] [address] [facility] [address] [facility]RL [facility] [place] [facility] LIVER FUNCTION PROTEIN [MASS/VOLU ME] IN SERUM OR PLASMA 7.1 g/dL 6.0 - 8.3 05/06 Specimen Type: SERUM No comment entered. Ordering Provider: ROB ARNOLD Report Released Date/Time: Nov 09, 2023 02:19 PM Reporting Lab: [facility] [place] [facility] [address] [facility] [address] Performing Lab: [facility] [place] [facility] [address] [facility] [address] [facility]RL [facility] [place] [facility] LIVER FUNCTION ALBUMIN [MASS/VOLU ME] IN SERUM OR PLASMA 4.1 g/dL 3.5 - 5.0 05/06 Specimen Type: SERUM No comment entered. Ordering Provider: ROB ARNOLD Report Released Date/Time: Nov 09, 2023 02:19 PM Reporting Lab: [facility] [place] [facility] [address] [facility] [address] Performing Lab: [facility] [place] [facility] [address] [facility] [address] [facility] [place] [facility] LIVER FUNCTION ALKALINE PHOSPHATAS E [ENZYMATIC ACTIVITY/V OLUME] IN SERUM OR PLASMA 57 U/L 40 - 150 05/06 Specimen Type: SERUM No comment entered. Ordering Provider: ROB ARNOLD Report Released Date/Time: Nov 09, 2023 02:19 PM Reporting Lab: [facility] [place] [facility] [address] [facility] [address] Performing Lab: [facility] [place] [facility] [address] [facility] [address] [facility] [place] [facility] LIVER FUNCTION ASPARTATE AMINOTRANS FERASE [ENZYMATIC ACTIVITY/V OLUME] IN SERUM OR PLASMA 20 U/L 5 - 34 05/06 Specimen Type: SERUM No comment entered. Ordering Provider: ROB ARNOLD Report Released Date/Time: Nov 09, 2023 02:19 PM Reporting Lab: [facility] [place] [facility] [address] [facility] [address] Performing Lab: [facility] [place] [facility] [address] [facility] [address] [facility] [place] [facility] LIVER FUNCTION ALANINE AMINOTRANS FERASE [ENZYMATIC ACTIVITY/V OLUME] IN SERUM OR PLASMA 21 U/L 05/06 Specimen Type: SERUM No comment entered. Ordering Provider: ROB ARNOLD Report Released Date/Time: Nov 09, 2023 02:19 PM Reporting Lab: [facility] [place] [facility] [address] [facility] [address] Performing Lab: [facility] [place] [facility] [address] [facility] [address] [facility] [place] [facility] LIVER FUNCTION BILIRUBIN. TOTAL [MASS/VOLU ME] IN SERUM OR PLASMA 1.0 mg/dL 0.2 - 1.2 05/06 Specimen Type: SERUM No comment entered. Ordering Provider: ROB ARNOLD Report Released Date/Time: Nov 09, 2023 02:19 PM Reporting Lab: [facility] [place] [facility] [address] [facility] [address] Performing Lab: [facility] [place] [facility] [address] [facility] [address] [facility] [place] [facility] LIPID PANEL FASTING CHOLESTERO L [MASS/VOLU ME] IN SERUM OR PLASMA 232 mg/dL 05/06 H Specimen Type: SERUM No comment entered. Ordering Provider: ROB ARNOLD Report Released Date/Time: Nov 09, 2023 02:19 PM Reporting Lab: [facility] [place] [facility] [address] [facility] [address] Performing Lab: [facility] [place] [facility] [address] [facility] [address] [facility] [place] [facility] LIPID PANEL FASTING TRIGLYCERI DE [MASS/VOLU ME] IN SERUM OR PLASMA 139 mg/dL 0 - 150 05/06 Specimen Type: SERUM No comment entered. Ordering Provider: ROB ARNOLD Report Released Date/Time: Nov 09, 2023 02:19 PM Reporting Lab: [facility] [place] [facility] [address] [facility] [address] Performing Lab: [facility] [place] [facility] [address] [facility] [address] [facility] [place] [facility] LIPID PANEL FASTING CHOLESTERO L IN LDL [MASS/VOLU ME] IN SERUM OR PLASMA BY CALCULATIO N 150 mg/dL 0 - 129 05/06 H Specimen Type: SERUM No comment entered. Ordering Provider: ROB ARNOLD Report Released Date/Time: Nov 09, 2023 02:19 PM Reporting Lab: [facility] [place] [facility] [address] [facility] [address] Performing Lab: [facility] [place] [facility] [address] [facility] [address] [facility] [place] [facility] LIPID PANEL FASTING CHOLESTERO L.TOTAL/CH OLESTEROL IN HDL [MASS RATIO] IN SERUM OR PLASMA 4.3 05/06 Specimen Type: SERUM No comment entered. Ordering Provider: ROB ARNOLD Report Released Date/Time: Nov 09, 2023 02:19 PM Reporting Lab: [facility] [place] [facility] [address] [facility] [address] Performing Lab: [facility] [place] [facility] [address] [facility] [address] [facility] [place] [facility] LIPID PANEL FASTING CHOLESTERO L IN HDL [MASS/VOLU ME] IN SERUM OR PLASMA 54 mg/dL 40 - 60 05/06 Specimen Type: SERUM No comment entered. Ordering Provider: ROB ARNOLD Report Released Date/Time: Nov 09, 2023 02:19 PM Reporting Lab: [facility] [place] [address] [address] Performing Lab: [facility] [place] [place] [address] [address] [facility] [place] [facility] PROTEIN/ CREATINI NE RATIO PANEL, URINE CREATININE [MASS/VOLU ME] IN URINE 55.08 mg/dL 10/31 Specimen Type: URINE No comment entered. Ordering Provider: ROB ARNOLD Report Released Date/Time: Oct 25, 2023 12:46 PM Reporting Lab: [facility] [place] [address] [address] Performing Lab: [facility] [place] [address] [address] [facility] [place] [facility] PROTEIN/ CREATINI NE RATIO PANEL, URINE PROTEIN/CR EATININE [MASS RATIO] IN URINE canc <0.2 - 0.2 10/31 Specimen Type: URINE No comment entered. Ordering Provider: ROB ARNOLD Report Released Date/Time: Oct 25, 2023 12:46 PM Reporting Lab: [facility] [place] [facility] [address] [facility] [address] Performing Lab: [facility] [place] [facility] [address] [facility] [address] [facility] [place] [facility] PROTEIN/ CREATINI NE RATIO PANEL, URINE PROTEIN [MASS/VOLU ME] IN URINE < 6.8mg/dL 0.0 - 20.0 10/31 Specimen Type: URINE No comment entered. Ordering Provider: ROB ARNOLD Report Released Date/Time: Oct 25, 2023 12:46 PM Reporting Lab: [facility] [place] [facility] [address] [facility] [address] Performing Lab: [facility] [place] [facility] [address] [facility] [address] [facility] [place] [facility] BASIC METABOLI C PANEL (fasting ) UREA NITROGEN [MASS/VOLU ME] IN SERUM OR PLASMA 15 mg/dL 7 - 25 10/31 Specimen Type: SERUM No comment entered. Ordering Provider: ROB ARNOLD Report Released Date/Time: Oct 25, 2023 12:46 PM Reporting Lab: [facility] [place] [facility] [address] [facility] [address] Performing Lab: [facility] [place] [address] [address] [facility] [place] [facility] BASIC METABOLI C PANEL (fasting ) GLUCOSE [MASS/VOLU ME] IN SERUM OR PLASMA 101 mg/dL 65 - 100 10/31 H Specimen Type: SERUM No comment entered. Ordering Provider: ROB ARNOLD Report Released Date/Time: Oct 25, 2023 12:46 PM Reporting Lab: [facility] [place] [facility] [address] [facility] [address] Performing Lab: [facility] [place] [address] [address] [facility] [place] [facility] BASIC METABOLI C PANEL (fasting ) SODIUM [MOLES/VOL UME] IN SERUM OR PLASMA 140 mmol/L 135 - 145 10/31 Specimen Type: SERUM No comment entered. Ordering Provider: ROB ARNOLD Report Released Date/Time: Oct 25, 2023 12:46 PM Reporting Lab: [facility] [place] [facility] [address] [facility] [address] Performing Lab: [facility] [place] [facility] [address] [facility] [address] [facility] [place] [facility] BASIC METABOLI C PANEL (fasting ) POTASSIUM [MOLES/VOL UME] IN SERUM OR PLASMA 4.3 mmol/L 3.5 - 5.0 10/31 Specimen Type: SERUM No comment entered. Ordering Provider: ROB ARNOLD Report Released Date/Time: Oct 25, 2023 12:46 PM Reporting Lab: [facility] [place] [facility] [address] [facility] [address] Performing Lab: [facility] [place] [facility] [address] [facility] [address] [facility] [place] [facility] BASIC METABOLI C PANEL (fasting ) CHLORIDE [MOLES/VOL UME] IN SERUM OR PLASMA 108 mmol/L 100 - 110 10/31 Specimen Type: SERUM No comment entered. Ordering Provider: ROB ARNOLD Report Released Date/Time: Oct 25, 2023 12:46 PM Reporting Lab: [facility] [place] [facility] [address] [facility] [address] Performing Lab: [facility] [place] [facility] [address] [facility] [address] [facility] [place] [facility] BASIC METABOLI C PANEL (fasting ) CARBON DIOXIDE, TOTAL [MOLES/VOL UME] IN SERUM OR PLASMA 23 meq/L 20 - 30 10/31 Specimen Type: SERUM No comment entered. Ordering Provider: ROB ARNOLD Report Released Date/Time: Oct 25, 2023 12:46 PM Reporting Lab: [facility] [place] [facility] [address] [facility] [address] Performing Lab: [facility] [place] [facility] [address] [facility] [address] [facility] [place] [facility] BASIC METABOLI C PANEL (fasting ) CREATININE [MASS/VOLU ME] IN SERUM OR PLASMA 1.22 mg/dL 0.50 - 1.40 10/31 Specimen Type: SERUM No comment entered. Ordering Provider: ROB ARNOLD Report Released Date/Time: Oct 25, 2023 12:46 PM Reporting Lab: [facility] [place] [facility] [address] [facility] [address] Performing Lab: [facility] [place] [address] [address] [facility] [place] [facility] BASIC METABOLI C PANEL (fasting ) GLOMERULAR FILTRATION RATE/1.73 SQ M.PREDICTE D [VOLUME RATE/AREA] IN SERUM, PLASMA OR BLOOD BY CREATININE -BASED FORMULA (CKD-EPI 2020) 69 mL/min 60 10/31 Specimen Type: SERUM No comment entered. Ordering Provider: ROB ARNOLD Report Released Date/Time: Oct 25, 2023 12:46 PM Reporting Lab: [facility] [place] [address] [address] Performing Lab: [facility] [place] [address] [address] [facility] [facility] LIPID PANEL FASTING CHOLESTERO L [MASS/VOLU ME] IN SERUM OR PLASMA 254 mg/dL 10/31 H Specimen Type: SERUM No comment entered. Ordering Provider: ROB ARNOLD Report Released Date/Time: Oct 25, 2023 12:46 PM Reporting Lab: [facility] [place] [address] [address] Performing Lab: [facility] [place] [address] [address] [facility] [place] [facility] LIPID PANEL FASTING TRIGLYCERI DE [MASS/VOLU ME] IN SERUM OR PLASMA 108 mg/dL 0 - 150 10/31 Specimen Type: SERUM No comment entered. Ordering Provider: ROB ARNOLD Report Released Date/Time: Oct 25, 2023 12:46 PM Reporting Lab: [facility] [place] [address] [address] Performing Lab: [facility] [place] [facility] [address] [facility] [address] [facility] [place] [facility] LIPID PANEL FASTING CHOLESTERO L IN LDL [MASS/VOLU ME] IN SERUM OR PLASMA BY CALCDAGO N 174 mg/dL 0 - 129 10/31 H Specimen Type: SERUM No comment entered. Ordering Provider: ROB ARNOLD Report Released Date/Time: Oct 25, 2023 12:46 PM Reporting Lab: [facility] [place] [facility] [address] [facility] [address] Performing Lab[facility] [place] [facility] [address] [facility] [address] [facility] [place] [facility] LIPID PANEL FASTING CHOLESTERO L.TOTAL/CH OLESTEROL IN HDL [MASS RATIO] IN SERUM OR PLASMA 4.4 10/31 Specimen Type: SERUM No comment entered. Ordering Provider: ROB ARNOLD Report Released Date/Time: Oct 25, 2023 12:46 PM Reporting Lab: [facility] [place] [facility] [address] [facility] [address] Performing Lab: [facility] [place] [facility] [address] [facility] [address] [facility] [place] [facility] LIPID PANEL FASTING CHOLESTERO L IN HDL [MASS/VOLU ME] IN SERUM OR PLASMA 58 mg/dL 40 - 60 10/31 Specimen Type: SERUM No comment entered. Ordering Provider: ROB ARNOLD Report Released Date/Time: Oct 25, 2023 12:46 PM Reporting Lab: [facility] [place] [facility] [address] [facility] [address] Performing Lab: [facility] [place] [facility] [address] [facility] [address] [facility] [place] [facility] LIVER FUNCTION PROTEIN [MASS/VOLU ME] IN SERUM OR PLASMA 7.6 g/dL 6.0 - 8.3 10/31 Specimen Type: SERUM No comment entered. Ordering Provider: ROB ARNOLD Report Released Date/Time: Oct 25, 2023 12:46 PM Reporting Lab: [facility] [place] [facility] [address] [facility] [address] Performing Lab: [facility] [place] [facility] [address] [facility] [address] [facility] LIVER FUNCTION ALBUMIN [MASS/VOLU ME] IN SERUM OR PLASMA 4.2 g/dL 3.5 - 5.0 10/31 Specimen Type: SERUM No comment entered. Ordering Provider: ROB ARNOLD Report Released Date/Time: Oct 25, 2023 12:46 PM Reporting Lab: [facility] [place] [address] [facility] [address] Performing Lab: [facility] [place] [facility] [address] [facility] [address] [facility] [place] LIVER FUNCTION ALKALINE PHOSPHATAS E [ENZYMATIC ACTIVITY/V OLUME] IN SERUM OR PLASMA 60 U/L 40 - 150 10/31 Specimen Type: SERUM No comment entered. Ordering Provider: ROB ARNOLD Report Released Date/Time: Oct 25, 2023 12:46 PM Reporting Lab: [facility] [place] [facility] [address] [facility] [address] Performing Lab: [facility] [place] [facility] [address] [facility] [address] [facility] LIVER FUNCTION ASPARTATE AMINOTRANS FERASE [ENZYMATIC ACTIVITY/V OLUME] IN SERUM OR PLASMA 31 U/L 5 - 34 10/31 Specimen Type: SERUM No comment entered. Ordering Provider: ROB ARNOLD Report Released Date/Time: Oct 25, 2023 12:46 PM Reporting Lab: [facility] [place] [facility] [address] [facility] [address] Performing Lab: [facility] [place] [facility] [address] [facility] [address] [facility] [place] LIVER FUNCTION ALANINE AMINOTRANS FERASE [ENZYMATIC ACTIVITY/V OLUME] IN SERUM OR PLASMA 33 U/L 10/31 Specimen Type: SERUM No comment entered. Ordering Provider: ROB ARNOLD Report Released Date/Time: Oct 25, 2023 12:46 PM Reporting Lab: [facility] [address] [facility] [address] Performing Lab: [facility] [address] [facility] [address] [facility] [place] LIVER FUNCTION BILIRUBIN. TOTAL [MASS/VOLU ME] IN SERUM OR PLASMA 1.1 mg/dL 0.2 - 1.2 10/31 Specimen Type: SERUM No comment entered. Ordering Provider: ROB ARNOLD Report Released Date/Time: Oct 25, 2023 12:46 PM Reporting Lab: [facility] [address] [facility] [address] Performing Lab: [facility] [place] [facility] [address] [facility] [address] [facility] CBC AND DIFF (AUTO) LEUKOCYTES [#/VOLUME] IN BLOOD BY AUTOMATED COUNT 5.10 10*3/uL 4.50 - 11.00 10/31 Specimen Type: BLOOD No comment entered. Ordering Provider: ROB ARNOLD Report Released Date/Time: Oct 25, 2023 12:46 PM Reporting Lab: [facility] [address] [facility] [address] Performing Lab: [facility] [address] [facility] [address] [facility] [place] CBC AND DIFF (AUTO) ERYTHROCYT ES [#/VOLUME] IN BLOOD BY AUTOMATED COUNT 4.69 10*6/uL 4.23 - 5.66 10/31 Specimen Type: BLOOD No comment entered. Ordering Provider: ROB ARNOLD Report Released Date/Time: Oct 25, 2023 12:46 PM Reporting Lab: [facility] [address] [facility] [address] Performing Lab: [facility] [address] [facility] [address] [facility] CBC AND DIFF (AUTO) HEMOGLOBIN [MASS/VOLU ME] IN BLOOD 14.0 g/dL 12.8 - 17 10/31 Specimen Type: BLOOD No comment entered. Ordering Provider: ROB ARNOLD Report Released Date/Time: Oct 25, 2023 12:46 PM Reporting Lab: [facility] [place] [facility] [address] [facility] [address] Performing Lab: [facility] [address] [facility] [address] [facility] CBC AND DIFF (AUTO) HEMATOCRIT [VOLUME FRACTION] OF BLOOD BY AUTOMATED COUNT 43.1 39.2 - 50.4 10/31 Specimen Type: BLOOD No comment entered. Ordering Provider: ROB ARNOLD Report Released Date/Time: Oct 25, 2023 12:46 PM Reporting Lab: [facility] [place] [address] [address] Performing Lab: [facility] [place] [facility] [address] [facility] [address] [facility] CBC AND DIFF (AUTO) MCV [ENTITIC VOLUME] BY AUTOMATED COUNT 91.9 fL 82 - 99 10/31 Specimen Type: BLOOD No comment entered. Ordering Provider: ROB ARNOLD Report Released Date/Time: Oct 25, 2023 12:46 PM Reporting Lab: [facility] [place] [facility] [address] [facility] [address] Performing Lab: [facility] [place] [facility] [address] [facility] [address] [facility] CBC AND DIFF (AUTO) MCHC [MASS/VOLU ME] BY AUTOMATED COUNT 32.5 g/dL 30.8 - 35.1 10/31 Specimen Type: BLOOD No comment entered. Ordering Provider: ROB ARNOLD Report Released Date/Time: Oct 25, 2023 12:46 PM Reporting Lab: [facility] [place] [facility] [address] [facility] [address] Performing Lab: [facility] [address] [facility] [address] [facility] CBC AND DIFF (AUTO) PLATELETS [#/VOLUME] IN BLOOD BY AUTOMATED COUNT 250 10*3/uL 140 - 360 10/31 Specimen Type: BLOOD No comment entered. Ordering Provider: ROB ARNOLD Report Released Date/Time: Oct 25, 2023 12:46 PM Reporting Lab: [facility] [address] [facility] [address] Performing Lab: [facility] [address] [facility] [address] [facility] CBC AND DIFF (AUTO) ERYTHROCYT E DISTRIBUTI ON WIDTH [RATIO] BY AUTOMATED COUNT 12.5 12.0 - 16.0 10/31 Specimen Type: BLOOD No comment entered. Ordering Provider: ROB ARNOLD Report Released Date/Time: Oct 25, 2023 12:46 PM Reporting Lab: [facility] [address] [facility] [address] Performing Lab: [facility] [address] [facility] [address] [facility] CBC AND DIFF (AUTO) MONOCYTES [#/VOLUME] IN BLOOD BY AUTOMATED COUNT 0.36 10*3/uL 0.30 - 1.10 10/31 Specimen Type: BLOOD No comment entered. Ordering Provider: ROB ARNOLD Report Released Date/Time: Oct 25, 2023 12:46 PM Reporting Lab: [facility] [address] [facility] [address] Performing Lab: [facility] [address] [facility] [address] [facility] CBC AND DIFF (AUTO) MCH [ENTITIC MASS] BY AUTOMATED COUNT 29.9 pg 26.2 - 32.6 10/31 Specimen Type: BLOOD No comment entered. Ordering Provider: ROB ARNOLD Report Released Date/Time: Oct 25, 2023 12:46 PM Reporting Lab: [facility] [address] [facility] [address] Performing Lab: [facility] [address] [facility] [address] [facility] CBC AND DIFF (AUTO) NEUTROPHIL S/100 LEUKOCYTES IN BLOOD BY AUTOMATED COUNT 50.6 43.7 - 75.8 10/31 Specimen Type: BLOOD No comment entered. Ordering Provider: ROB ARNOLD Report Released Date/Time: Oct 25, 2023 12:46 PM Reporting Lab: [facility] [address] [facility] [address] Performing Lab: [facility] [address] [facility] [address] [facility] CBC AND DIFF (AUTO) LYMPHOCYTE S/100 LEUKOCYTES IN BLOOD BY AUTOMATED COUNT 38.8 14.0 - 42.3 10/31 Specimen Type: BLOOD No comment entered. Ordering Provider: ROB ARNOLD Report Released Date/Time: Oct 25, 2023 12:46 PM Reporting Lab: [facility] [address] [facility] [address] Performing Lab: [facility] [address] [facility] [address] [facility] CBC AND DIFF (AUTO) MONOCYTES/ 100 LEUKOCYTES IN BLOOD BY AUTOMATED COUNT 7.1 5.1 - 13.7 10/31 Specimen Type: BLOOD No comment entered. Ordering Provider: ROB ARNOLD Report Released Date/Time: Oct 25, 2023 12:46 PM Reporting Lab: [facility] [address] [facility] [address] Performing Lab: [facility] [address] [facility] [address] [facility] CBC AND DIFF (AUTO) EOSINOPHIL S/100 LEUKOCYTES IN BLOOD BY AUTOMATED COUNT 2.5 0.4 - 6.8 10/31 Specimen Type: BLOOD No comment entered. Ordering Provider: ROB ARNOLD Report Released Date/Time: Oct 25, 2023 12:46 PM Reporting Lab: [facility] [address] [facility] [address] Performing Lab: [facility] [address] [facility] [address] [facility] CBC AND DIFF (AUTO) BASOPHILS/ 100 LEUKOCYTES IN BLOOD BY AUTOMATED COUNT 0.8 0.1 - 2.0 10/31 Specimen Type: BLOOD No comment entered. Ordering Provider: ROB ARNOLD Report Released Date/Time: Oct 25, 2023 12:46 PM Reporting Lab: [facility] [address] [facility] [address] Performing Lab: [facility] [address] [facility] [address] [facility] CBC AND DIFF (AUTO) NEUTROPHIL S [#/VOLUME] IN BLOOD BY AUTOMATED COUNT 2.58 10*3/uL 2.20 - 7.60 10/31 Specimen Type: BLOOD No comment entered. Ordering Provider: ROB ARNOLD Report Released Date/Time: Oct 25, 2023 12:46 PM Reporting Lab: [facility] [address] [facility] [address] Performing Lab: [facility] [address] [facility] [address] [facility] CBC AND DIFF (AUTO) LYMPHOCYTE S [#/VOLUME] IN BLOOD BY AUTOMATED COUNT 1.98 10*3/uL 1.00 - 3.20 10/31 Specimen Type: BLOOD No comment entered. Ordering Provider: ROB ARNOLD Report Released Date/Time: Oct 25, 2023 12:46 PM Reporting Lab: [facility] [address] [facility] [address] Performing Lab: [facility] [address] [facility] [address] [facility] CBC AND DIFF (AUTO) EOSINOPHIL S [#/VOLUME] IN BLOOD BY AUTOMATED COUNT 0.13 10*3/uL 0.03 - 0.44 10/31 Specimen Type: BLOOD No comment entered. Ordering Provider: ROB ARNOLD Report Released Date/Time: Oct 25, 2023 12:46 PM Reporting Lab: [facility] [address] [facility] [address] Performing Lab: [facility] [address] [facility] [address] [facility] CBC AND DIFF (AUTO) BASOPHILS [#/VOLUME] IN BLOOD BY AUTOMATED COUNT 0.04 10*3/uL 0.01 - 0.13 10/31 Specimen Type: BLOOD No comment entered. Ordering Provider: ROB ARNOLD Report Released Date/Time: Oct 25, 2023 12:46 PM Reporting Lab: [facility] [address] [facility] [address] Performing Lab: [facility] [address] [place] [address] [facility] CBC AND DIFF (AUTO) IMMATURE GRANULOCYT ES/100 LEUKOCYTES IN BLOOD BY AUTOMATED COUNT 0.2 0.0 - 0.7 10/31 Specimen Type: BLOOD No comment entered. Ordering Provider: ROB ARNOLD Report Released Date/Time: Oct 25, 2023 12:46 PM Reporting Lab: [facility] [address] [facility] [address] Performing Lab: [facility] [address] [place] [address] [facility] CBC AND DIFF (AUTO) IMMATURE GRANULOCYT ES [#/VOLUME] IN BLOOD 0.01 10*3/uL 0.00 - 0.06 10/31 Specimen Type: BLOOD No comment entered. Ordering Provider: ROB ARNOLD Report Released Date/Time: Oct 25, 2023 12:46 PM Reporting Lab: [facility] [address] [facility] [address] Performing Lab: [facility] [address] [facility] [address] [facility] Vital [...] 2024 09:10:22 [facility] Encounters Combined [...] [facility] En[facility] [id number] 05/25 [facility] En[facility] [id number] 06/16 [facility] OFFICE O/P EST LOW 20-29 MIN [id number] Diagnos is: ICD-10- CM M54.50 Low back pain, unspeci fied
ADRYAN ARNOLD MMED JAWED 06/29 [facility] En[facility] [id number] ADRYAN ARNOLD MMED JAWED 06/29 [facility] En[facility] [id number] 08/10 [facility] En[facility] [id number] Tyrel SULTANA 08/14 [facility] En[facility] [id number] 08/15 [facility] Encounter [id number] 08/22 [facility] Encounter [id number] 09/26 [facility] Encounter [id number] 09/29 [facility] En[facility] [id number] 10/05 [facility] Encounter [id number] 10/10 [facility] Encounter [id number] 10/16 [facility] Encounter [id number] 10/27 [facility] En[facility] [id number] 11/07 [facility] OFF[facility] O/P EST MOD 30-39 MIN [id number] Diagnos is: ICD-10- CM M54.59 Other low back pain
AHMED,MOHA MMED JAWED 11/09 [facility] En[facility] [id number] 04/05 [facility] Encounter [id number] 05/08 [facility] OFFICE O/P EST MOD 30 MIN [id number] Diagnos is: ICD-10- CM M54.59 Other low back pain
FURCOLO,TI NA 05/16 [facility] En[facility] [id number] 05/17 [facility] En[facility] [id number] 05/17 [facility] Encounter [id number] 05/28 [facility] Encounter [id number] 05/28 [facility] Encounter [id number] 06/07 [facility] Encounter [id number] 06/10 [facility] En[facility] [id number]/18 [facility] En[facility] [id number] [facility] OFF/OP EST MARCH X REQ PHY/QHP [id number] Diagnos is: ICD-10- CM Z23 Encount er for immuniz ation<b r/> Lidia MOMIN 07/24 [facility] En[facility] [id number] 09/27 [facility] Social History Combined list of available smoking, tobacco, and other social history from Department of Defense and Veterans Affairs facilities. Social History Type Response Date Comment Sourc e Tobacco smoking status NHIS VA-TOBACCO NEVER USED 11/09/2023 [facility] [place] [facility] History of tobacco use VA-TOBACCO NEVER USED 09/26/2022 [facility] [place] [facility] This section is an empty social history section. DoD Plan of Care List of future care activities from Department of Veterans Affairs facilities. Additional future care activities may be listed in the Assessment and Plan section. Date/Time Care Activity Care Activity Detail Facili ty 04/28/2025 AMBULATORY - MEDICINE AMBULATORY - MEDICI [facility]
--- OUTSIDE RECORDS SUMMARY | 2024-11-13 08:26 | XMS_ITS | Patient Health Record ---
Author Organization Rusty Ramos III, MD Address [address] [place] [address] Care Team Providers Care Life Skills Coordinator Name Role Phone [facility] ider Unavailable Rusty Ramos Unavailable [phone] Allergies Allergen (clinical drug ingredient) Drug/Non Drug Allergy documented on EMR Reaction Allergy Type Onset Date Status Substance with 4-zieefdr-1-methylgluta ryl-coenzyme A reductase inhibitor mechanism of action [...] ff Reviewed date:11/04/2024 05:14:55 AM Interpretation: Performing Lab:[facility], [address] [place] [address] Notes/Report: White Blood Count 6.3 4.8-10.8 X10*3/uL [...] NRBC Abs Auto 0.000 0.0-0.012 X10*3/uL Comprehensive [place]. Panel Fa st Reviewed date:11/04/2024 05:14:56 AM Interpretation: Performing Lab:[facility], [address] [place] [address] Notes/Report: Sodium 143 135-145 mmol/L Potassium 4.2 [...] Panel Reviewed date:11/04/2024 05:14:56 AM Interpretation: Performing Lab:[address] [address] Notes/Report: Triglycerides 158 <150 mg/dL Desirable Triglyceride: [...] Antigen Reviewed date:11/04/2024 05:14:56 AM Interpretation: Performing Lab:[address] [address] Notes/Report: Prostate Specific Antigen 3.72 <0.05-4.0 ng/mL [...] Jennie Ontiveros CMA 11/05 01:21:01 PM Called [facility] made patient appt for [...] Problem Status W/U Status Risk Notes Problem 895680647250876 Obesity (BMI 30.0-34.9) (E66.9) Active confirmed His body mass index is stable at 33. We discussed diet and nutrition. We made a plan for him to lose weight at a rate of one half of a pound per week. A diet restricted in fat calories and sodium combined with regular physical activity. Problem 831870614 Mixed hyperlipidemia (E78.2) Active confirmed He reports [...] weight loss. He continues on ezetimbe. Problem 013620558 GERD without esophagitis (K21.9) Active confirmed His reflux symptoms are well controlled with omeprazole and antacids. No change in his regimen was needed today. Problem Benign prostatic hyperplasia (518651142) BPH (benign prostatic hyperplasia) (N40.0) Active confirmed He rises from sleep once or maybe twice a night to urinate depending upon fluid intake. We have discussed lifestyle modification as a way to reduce nocturnal urinating. Problem 30097414 Cervical radiculopathy (M54.12) Active confirmed His neck pain has resolved and he will avoid heavy lifting. Problem 30637362 Sciatica of right side (M54.31) Active confirmed The sciatica has resolved and is no longer present. Problem 20441388 Degenerative disc disease at L5-S1 level (M51.36) Active confirmed He continues to have intermittent pain in his low back that radiates down his leg. He is avoiding heavy lifting. I have recommended muscle strengthening physical therapy and regular follow-up. Problem [id number] Patellar tendinitis of left knee (M76.52) Active confirmed The pain in his knee has resolved and he is able to walk without difficulty. Problem 944802534 Allergy to statin medication (Z88.8) Active confirmed I strongly recommended a low animal fat diet and weight loss. I recommended he take niacin once a day. Problem Cerebral ataxia (81102151) Cerebral ataxia (G11.9) Active confirmed Ataxia was not present today. He will be observed for this symptom. Problem 044384523 Mass of anus (K62.89) Active confirmed There [...] a day triamcinolone. He is leaving for [place] until March of 2025. On November 28.. [...] Date Provider Diagnosis Rusty Ramos III, MD [address] [place] [address] [place] [address] 11/05/2024 Rusty Ramos Mass of anus K62.89 ; BPH (benign prostatic hyperplasia) N40.0 ; Encounter for immunization Z23 ; Obesity (BMI 30.0-34.9) E66.9 ; GERD without esophagitis K21.9 ; Cervical radiculopathy M54.12 ; Degenerative disc disease at L5-S1 level M51.36 ; Sciatica of right side M54.31 and Mixed hyperlipidemia E78.2 Rusty Ramos III, MD [address] [place] [address] [address] [place] [address] 04/14/2024 Rusty Ramos Obesity (BMI 30.0-34 .9) [...] a day triamcinolone. He is leaving for [place] until March of 2025. On November 28. [...] Details Provider Name:Rusty Ramos, 11/19/2024 09:15:00 AM, [address] [place] [address] [address], [place], [address], Provider Name:Rusty Ramos, 11/06/2025 10:00:00 AM, [address] [place] [address] [address], [place], [address], Insurance Providers Payer Name Payer Address Payer Phone Subscriber Number Group Number Insured Name Patient Relationship to Insured Coverage Start Date Coverage End Date [address] [place] [phone] [id number] Dustin Weeks Self - patient is the [...]
--- OUTSIDE RECORDS SUMMARY | 2024-11-13 08:26 | XMS_ITS ---
Author Organization Rusty Ramos III, MD Address [address] [facility] [place] [address] Care Team Providers Care Coal Chute Worker Name Role Phone [facility] ider Unavailable Rusty Ramos Unavailable [phone] Allergies Allergen (clinical drug ingredient) Drug/Non Drug Allergy documented on EMR Reaction Allergy Type Onset Date Status Substance with 5-qbuttrk-7-methylgluta ryl-coenzyme A reductase inhibitor mechanism of action [...] Provider Diagnosis Rusty Ramos III, MD [address] [place] [address] [place] [address] 11/02/2023 Rusty Ramos Obesity (BMI 30.0-34 .9) [...] Exam Provider Name:Rusty Ramos, 11/19/2024 09:15:00 AM, [address] [place] [address] [address], [place], [address], Provider Name:Rusty Ramos, 11/06/2025 10:00:00 AM, [address] [place] [address] [address], [place], [address], Progress Notes * Dustin WEEKSDOB:1965 (58 yo M)Acc No.[id number]:11/02/2023 Progress Notes Patient:?Handy Weeksny Provider:?Rusty Ramos MD :1965???Age:58 Y???Sex:Male Gautam e:11/02/2023 Address:[address] [place] [address] [address] [place]borne MAKH-[id number] Pcp:[facility] enter Subjective: * Chief Complaints: * ???Annual [...] reflux symptoms have been well controlled with skvy-dfp-jmvnzrq medication. His ataxia has resolved. He rises [...] 2017colonoscopy for hematochezia, age 38, negative findings [id number] herniated disk removal 11/2019left and right trigger [...] ?Marital status: . ???He was born in [place], [place] and came to [facility] at the age of 8. He has been to [place] for 35 years and they have 3 children, Kylah 35, Dustin 33 and Tristian, who is adopted,. 16. They have 5 healthy grandchildren. 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 He has worked in the past on [...] Ezetimibe Tablet, 10 MG, Oral.? * Procedure Codes:?37501 URINE -NO MICRO * Preventive Medicine:? ??Counseling:?Care [...] Ramos MD Date:?05/2023 Generated for Eamon aleman/Jeremiah/eTransmitting on:?11/13/2024 08:25 AM EST History and Physical [...]
--- OUTSIDE RECORDS SUMMARY | 2024-11-13 08:26 | XMS_ITS | Encounter Summary ---
Author Name [facility] [place] Address [address] [place] [address] Care Team Providers Care Display Trimmer Name Role Phone ZURI GAMBOA Primary Care [...] PLAN C 000 000 [phone] , [facility] CE ORGANIZ FAIRV IEW COMMO NS May 27, 2020 [id number] YVES PULIDO PATIENT [facility] CE ORGANIZAT ION CHICO PEE EARLY RETIR May 27, 2020 [id number] [id number] YVES PULIDO PATIENT OPTUM RX PRESCRIPT ION HEALT H NEW [place] May 27, 2020 HNE [id number] YVES PULIDO PATIENT Selected Encounter This section includes the information on record at [place] for the Encounter. Date/Time Encounter Type Encounter Description Reason Provider Source 2024 09:00 AM OFFICE O/P EST MOD 30 MIN PRIMARY CARE/MEDICINE ICD-10-CM M54.59 Other low back pain FURCOLO,ZURI IHE Encounter Template Text not used by [place] Assessments - Encounter Diagnoses This section includes the primary and secondary diagnoses documented for the Encounter. Date/Time Primary/Secondary Diagnosis Diagnosis Name Provider Source 2024 09:48 AM PRIMARY Other low back pain FURCOLO,ZURI [facility] 2024 09:48 AM SECONDARY Encounter for immunization [facility] SCHUMACHER [facility] 2024 09:48 AM SECONDARY Essential (primary) hypertension FURCOLO,ZURI [facility] 2024 09:48 AM SECONDARY Pure hypercholesterolem ia, unspecified FURCOLO,ZURI [facility] Plan of Treatment: Future Appointments (+ 6 months) and Future Tests (+/- 45 days) The Plan of Treatment section includes future care activities for the patient from all [place] treatmentfacilities. This section includes future appointments and future orders which are active, pending or scheduled. Future Appointments This section includes appointments that were scheduled to occur 6 months from the date of the Encounter, up to a maximum of 20 appointments. The data comes from all [place] treatment facilities. Appointment Date/Time Appointment Type Appointme nt Facility Name May 28, 2024 09:30 AM AMBULATORY - MEDICINE [facility] Jul 24, 2024 08:30 AM AMBULATORY - MEDICINE [facility] Lab Results: +/- 30 days of the encounter This section includes the Chemistry and Hematology Lab Results on record with [place] for the patient. Radiology Reports and Pathology Reports are provided separately, in subsequent sections. Lab Results This section contains the Chemistry/Hematology Results that were resulted 30 days before or 30 daysafter the date of the Encounter. Date/Time Source Result Type Result - Unit Interpretation Reference Range Comment May 06, 2024 08:47 AM [facility] HEPATITIS B SURFACE ANTIBODY (HBsAb)-WH Specimen Type: SERUM No comment entered. Ordering Provider: EDA ARNOLD Report Released Date/Time: Nov 09, 2023 02:19 PM Reporting Lab: [facility] [address] [facility] [address] Performing Lab: [facility] [address] [facility] [address] HBsAb Non Reactive Non Reactive May 06, 2024 08:47 AM [facility] HEPATITIS A ANTIBODY (IGG) Specimen Type: SERUM Comment: Hep A IgG: A 'Non-reactive ' result indicates no anti-HAV IgG was detected. Ordering Provider: EDA ARNOLD Report Released Date/Time: Nov 09, 2023 02:19 PM Reporting Lab: [facility] [address] [facility] [address] Performing Lab: [facility] [address] [facility] [address] HEPATITIS A ANTIBODY (IGG) Non Reactive Non Reactive May 06, 2024 08:47 AM [facility] BASIC METABOLIC PANEL (fasting) Specimen Type: SERUM No comment entered. Ordering Provider: EDA ARNOLD Report Released Date/Time: Nov 09, 2023 02:19 PM Reporting Lab: [address] [address] Performing Lab: [address] [address] UREA NITROGEN 14 mg/dL 7-25 GLUCOSE 111 mg/dL H 65-100 SODIUM 141 mmol/L 135-145 POTASSIUM 4.2 mmol/L 3.5-5.0 CHLORIDE 109 mmol/L 100-110 CO2 24 meq/L 20-30 CREATININE, Serum 1.25 mg/dL 0.50-1.40 eGFR(CKD-EPI 2020) 66 mL/min >60 May 06, 2024 08:47 AM [facility] LIVER FUNCTION Specimen Type: SERUM No comment entered. Ordering Provider: EDA ARNOLD Report Released Date/Time: Nov 09, 2023 02:19 PM Reporting Lab: [address] [address] Performing Lab: [address] [address] PROTEIN,TOTAL 7.1 g/dL 6.0-8.3 ALBUMIN 4.1 g/dL 3.5-5.0 ALKALINE PHOSPHATASE 57 U/L 40-150 AST 20 U/L 5-34 ALT 21 U/L BILIRUBIN, TOTAL 1.0 mg/dL 0.2-1.2 May 06, 2024 08:47 AM [facility] LIPID PANEL FASTING Specimen Type: SERUM No comment entered. Ordering Provider: EDA ARNOLD Report Released Date/Time: Nov 09, 2023 02:19 PM Reporting Lab: [address] [address] Performing Lab: [address] [address] CHOLESTEROL 232 mg/dL H TRIGLYCERIDE 139 mg/dL [...] 68 137/84 16 99 6 213 33 [facility] Immunizations: All administered on the encounter date This section contains immunizations associated to the Encounter. Immunization Series Date Issued Reaction Comments ZOSTER RECOMBINANT 2024 Social History: Smoking Status (Most current) and Tobacco Use (All prior to encounter date) This section includes the most current, and the historical, smoking and tobacco- related health factors from the [place] facility where the Encounter took place. Current Smoking Status This section includes the most current smoking, or tobacco-related health factor, from the [place] facility where the Encounter took place. Date/Time Current Smoking Status Comment Facil ity Nov 09, 2023 02:00 PM [place]-TOBACCO NEVER USED [facility] Tobacco Use History This section includes a history of the smoking, or tobacco-related health factors, that were collected on or before the date of the Encounter. The data comes from the [place] facility where the Encounter took place. Date/Time [...] Primary Care Provider: PCP DR. 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 Radiculopathy- has benefitted from acupuncture, dog daycare provider made worse- good exercise regimen 2. Low back pain 3. Essential hypertension at goal. on meds- takes reliably. up to date with labs 4. Hypercholesterolemia- minimally elevated HEALTH MAINTENANCE Colonoscopy (due at age 45) - does through outside PCP at [facility]- up to date Abdominal Aortic Aneurysm Screening [...] D.O. PHYSICIAN Signed: 2024 09:49 ZURI GAMBOA [facility] 2024 09:20 AM PREVENTIVE MEDICINE NURSING NOTE: [...] Date Administered: 2024 09:00 Series: Partially complete Aquatic Instructor: [employer] [place] AB Lot: [id number] Exp Date: Dec 21, 2025 NDC: [id number] Admin Route/Site: INTRAMUSCULAR/LEFT DELTOID Dosage: 0.5mL Vaccine Information Statement(s): RECOMBINANT ZOSTER VACCINE VIS Dec 31, 2021 ([facility]UVIAN) Order By: Policy Administered By: Baron Schumacher Vaccine Information Sheet (VIS) was given to the patient/caregiver, education regarding adverse reactions was discussed, as well as barriers to learning, if any, were acknowledged. /jacquie SCHUMACHER LPN License Practical Nurse Signed: 2024 09:20 BARON SCHUMACHER [facility]
--- OUTSIDE RECORDS SUMMARY | 2024-11-13 08:26 | XMS_ITS ---
Author Name [place] Address [address] [place] [address] Care Team Providers Care Clerk Supervisor Name Role Phone ZURI GAMBOA Primary Care [...] CARD) MEDIGAP PLAN C 000 000 , [facility] CE ORGANIZ FAIRV IEW COMMO NS May 27, 2020 [id number] YVES PULIDO PATIENT [facility] CE ORGANIZAT ION CHICO PEE EARLY RETIR May 27, 2020 [id number] YVES PULIDO PATIENT OPTUM RX PRESCRIPT ION HEALT H NEW [place] May 27, 2020 HNE [id number] YVES PULIDO PATIENT Selected Encounter This section includes the information on record at [place] for the Encounter. Date/Time Encounter Type Encounter Description Reason Pro vider Source April 05, 2024 08:48 PM Outpatient Encounter ADMIN PAT ACTIVTIES (MASNONCT) E Encounter Template Text not used by [place] Plan of Treatment: Future Appointments (+ 6 months) and Future Tests (+/- 45 days) The Plan of Treatment section includes future care activities for the patient from all [place] [facility] This section includes future appointments and future orders which are active, pending or scheduled. Future Appointments This section includes appointments that were scheduled to occur 6 months from the date of the Encounter, up to a maximum of 20 appointments. The data comes from all [place] treatment facilities. Appointment Date/Time Appointment Type Appointme nt Facility Name 2024 09:00 AM AMBULATORY - MEDICINE [facility] May 28, 2024 09:30 AM AMBULATORY MEDICINE [facility] Jul 24, 2024 08:30 AM AMBULATORY MEDICINE [facility] Social History: Smoking Status (Most current) and Tobacco Use (All prior to encounter date) This section includes the most current, and the historical, smoking and tobacco- related health factors from the [place] facility where the Encounter took place. Current Smoking Status This section includes the most current smoking, or tobacco-related health factor, from the [place] facility where the Encounter took place. Date/Time Current Smoking Status Comment Facil ity Nov 09, 2023 02:00 PM [place]-TOBACCO NEVER USED [facility] Tobacco Use History This section includes a history of the smoking, or tobacco-related health factors, that were collected on or before the date of the Encounter. The data comes from the [place] facility where the Encounter took place. Date/Time Smoking Status/Tobacco Use Comment F acility Sep 26, 2022 08:00 AM [place]-TOBACCO NEVER USED [facility] Encounter Notes: All associated encounter notes This section contains the clinical notes associated to the Encounter. Date/Time Encounter Note(s) Provider Source April 05, 2024 08:48 PM PHARMACY NOTE: LOCAL TITLE: V1 PHARMACY CUSTOMER CARE MEDICATION RENEWAL STANDARD TITLE: PHARMACY NOTE DATE OF NOTE: APRIL 05, 2024@20:48 ENTRY DATE: APRIL 05, 2024@20:48:58 AUTHOR: KASSIDY BARTON COSIGNER: URGENCY: STATUS: COMPLETED Date: March Division: [place] Pt referred by Pharmacy Call Center for medication renewal: Non-controlled/maintenan ce medication Medications requested: [id number] EZETIMIBE 10MG TAB Defer to primary care provider To be mailed . Please review and renew if appropriate. *This note was generated by [facility]/[place] Pharmacy Customer Care. If you have any questions or need assistance, do not contact this author. Please refer all questions to your local, on-site pharmacy departments. /james/ KASSIDY BARTON CPhT Computer Game Tester, [place]/Pharmacy Customer Care Signed: 04/05/2024 20:49 Receipt Acknowledged By: 04/08/2024 07:51 /es/ ZURI GAMBOA D.O. PHYSICIAN 04/08/2024 08:10 /james/ LARON MOMIN, DOMENIC REGISTERED NURSE KASSIDY BARTON [place] CNT[facility]
--- OUTSIDE RECORDS SUMMARY | 2024-11-13 08:26 | XMS_ITS ---
Author Name [place] Address [address] [place] [address] Care Team Providers Care Orthopaedic Nurse Name Role Phone ZURI GAMBOA Primary Care [...] CARD) MEDIGAP PLAN C 000 000 , [facility] CE ORGANIZ FAIRV IEW COMMO NS May 27, 2020 [id number] YVES PULIDO PATIENT [facility] CE ORGANIZAT ION CHICO PEE EARLY RETIR May 27, 2020 [id number] YVES PULIDO PATIENT OPTUM RX PRESCRIPT ION HEALT H NEW [place]LA ND May 27, 2020 [facility] [id number] YVES PULIDO PATIENT Selected Encounter This [...] Name 2024 09:00 AM AMBULATORY - MEDICINE [facility] May 28, 2024 09:30 AM AMBULATORY MEDICINE [facility] Jul 24, 2024 08:30 AM AMBULATORY MEDICINE [facility] Lab Results: +/- 30 days of the [...] Range Comment May 06, 2024 08:47 AM [facility] HEPATITIS B SURFACE ANTIBODY (HBsAb)-WH Specimen Type: SERUM No comment entered. Ordering Provider: EDA ARNOLD Report Released Date/Time: Nov 09, 2023 02:19 PM Reporting Lab: [address] [address] Performing Lab: [facility] [address] HBsAb Non Reactive Non Reactive May 06, 2024 08:47 AM [facility] HEPATITIS A ANTIBODY (IGG) Specimen Type: SERUM Comment: Hep A IgG: A 'Non-reactive ' result indicates no anti-HAV IgG was detected. Ordering Provider: EDA ARNOLD Report Released Date/Time: Nov 09, 2023 02:19 PM Reporting Lab: [address] [address] Performing Lab: [address] [address] HEPATITIS A ANTIBODY (IGG) Non Reactive Non Reactive May 06, 2024 08:47 AM [facility] BASIC METABOLIC PANEL (fasting) Specimen Type: SERUM No comment entered. Ordering Provider: EDA ARNOLD Report Released Date/Time: Nov 09, 2023 02:19 PM Reporting Lab: [address] [address] Performing Lab: [address] [address] UREA NITROGEN 14 mg/dL 7-25 GLUCOSE 111 mg/dL H 65-100 SODIUM 141 mmol/L 135-145 POTASSIUM 4.2 mmol/L 3.5-5.0 CHLORIDE 109 mmol/L 100-110 CO2 24 meq/L 20-30 CREATININE, Serum 1.25 mg/dL 0.50-1.40 eGFR(CKD-EPI 2020) 66 mL/min >60 May 06, 2024 08:47 AM [facility] LIVER FUNCTION Specimen Type: SERUM No comment entered. Ordering Provider: EDA ARNOLD Report Released Date/Time: Nov 09, 2023 02:19 PM Reporting Lab: [address] [address] Performing Lab: [address] [address] PROTEIN,TOTAL 7.1 g/dL 6.0-8.3 ALBUMIN 4.1 g/dL 3.5-5.0 ALKALINE PHOSPHATASE 57 U/L 40-150 AST 20 U/L 5-34 ALT 21 U/L BILIRUBIN, TOTAL 1.0 mg/dL 0.2-1.2 May 06, 2024 08:47 AM [facility] LIPID PANEL FASTING Specimen Type: SERUM No comment entered. Ordering Provider: EDA ARNOLD Report Released Date/Time: Nov 09, 2023 02:19 PM Reporting Lab: [address] [address] Performing Lab: [facility] [address] [facility] [address] CHOLESTEROL 232 mg/dL H TRIGLYCERIDE 139 mg/dL [...] 09, 2023 02:00 PM [place]-TOBACCO NEVER USED [facility] Tobacco Use History This section includes a history of the smoking, or tobacco-related health factors, that were collected on or before the date of the Encounter. The data comes from the [place] facility where the Encounter took place. Date/Time Smoking Status/Tobacco Use Comment F acility Sep 26, 2022 08:00 AM [place]-TOBACCO NEVER USED [facility] Encounter Notes: All associated encounter notes This section contains the clinical notes associated to the Encounter. Date/Time Encounter Note(s) Provider Source May 08, 2024 09:36 AM LETTERS: LOCAL TITLE: PATIENT LETTER (T) STANDARD TITLE: LETTERS DATE OF NOTE: MAY 08, 2024@09:36 ENTRY DATE: MAY 08, 2024@09:36:12 AUTHOR: CARLITOS JONES COSIGNER: URGENCY: STATUS: COMPLETED DEPARTMENT OF [facility] AFFAIRS [facility] Toll Free Number Primary Care Telephone Assistance can be reached at extension [phone] [facility] scheduling can be reached at extension [phone] [facility] scheduling can be reached at ext [phone] BISHNU PULIDO [address], [place], [address] Dear [place], You are not immune to Hepatitis A or B. If you would like to receive the vaccine (we recommend that you do so), it may be given at your upcoming primary care appointment. Your cholesterol is elevated. Please continue your current medication regimen and work on your diet and exercise. Let us know if you would like to see the Steel Chipper. Your recent test results are as follows: [...] CWM/NO/PACT EIGHT Sincerely, Your Primary Care Team [facility] [address] [address] [place], [place] [id number] [facility] [address] [place] [address] [place] [address] [phone] [facility] [address] [facility] [place] [phone] [place] [address] CARLITOS JONES [facility]
--- OUTSIDE RECORDS SUMMARY | 2024-11-13 08:27 | XMS_ITS | Encounter Summary ---
Author Name [place] Address [address] [place] [address] Care Team Providers Care Roller Operator Name Role Phone ZURI GAMBOA Primary [...] (BLUE CARD) MEDIGAP PLAN C 000 000 [phone] , [facility] CE ORGANIZ FAIRV IEW COMMO NS May 27, 2020 [id number] YVES PULIDO PATIENT [facility] CE ORGANIZAT ION CHICO PEE EARLY RETIR May 27, 2020 [id number] YVES PULIDO PATIENT OPTUM RX PRESCRIPT ION HEALT H NEW ENGLA ND May 27, 2020 [facility] [id number] YVES PULIDO PATIENT Selected Encounter This section includes the information on record at [place] for the Encounter. Date/Time Encounter Type Encounter Description Reason Pro vider Source May 28, 2024 12:00 AM Outpatient Encounter COMMUNITY CARE CONSULT IHE Encounter Template Text not used by [place] Plan of Treatment: Future Appointments (+ 6 months) and Future Tests (+/- 45 days) The Plan of Treatment section includes future care activities for the patient from all [place] treatmentfacilities. This section includes future appointments and future orders which are active, pending or scheduled. Future Appointments This section includes appointments that were scheduled to occur 6 months from the date of the Encounter, up to a maximum of 20 appointments. The data comes from all [place] treatment facilities. Appointment Date/Time Appointment Type Appointme nt Facility Name Jul 24, 2024 08:30 AM AMBULATORY - MEDICINE [facility] Lab Results: +/- 30 days of the encounter This section includes the Chemistry and Hematology Lab Results on record with [place] for the patient. Radiology Reports and Pathology Reports are provided separately, in subsequent sections. Lab Results This section contains the Chemistry/Hematology Results that were resulted 30 days before or 30 daysafter the date of the Encounter. Date/Time Source Result Type Result - Unit Interpretation Reference Range Comment May 06, 2024 08:47 AM [facility] HEPATITIS B SURFACE ANTIBODY (HBsAb)-[facility] Specimen Type: SERUM No comment entered. Ordering Provider: EDA ARNOLD Report Released Date/Time: Nov 09, 2023 02:19 PM Reporting Lab: [address] [address] Performing Lab: [address] [address] HBsAb Non Reactive Non Reactive May 06, 2024 08:47 AM [facility] HEPATITIS A ANTIBODY (IGG) Specimen Type: SERUM Comment: Hep A IgG: A 'Non-reactive ' result indicates no anti-HAV IgG was detected. Ordering Provider: EDA ARNOLD Report Released Date/Time: Nov 09, 2023 02:19 PM Reporting Lab: [address] [address] Performing Lab: [address] [address] HEPATITIS A ANTIBODY (IGG) Non Reactive Non Reactive May 06, 2024 08:47 AM [facility] BASIC METABOLIC PANEL (fasting) Specimen Type: SERUM No comment entered. Ordering Provider: EDA ARNOLD Report Released Date/Time: Nov 09, 2023 02:19 PM Reporting Lab: [facility] [address] [facility] [address] Performing Lab: [address] [address] UREA NITROGEN 14 mg/dL 7-25 GLUCOSE 111 mg/dL H 65-100 SODIUM 141 mmol/L 135-145 POTASSIUM 4.2 mmol/L 3.5-5.0 CHLORIDE 109 mmol/L 100-110 CO2 24 meq/L 20-30 CREATININE, Serum 1.25 mg/dL 0.50-1.40 eGFR(CKD-EPI 2020) 66 mL/min >60 May 06, 2024 08:47 AM [facility] LIVER FUNCTION Specimen Type: SERUM No comment entered. Ordering Provider: EDA ARNOLD Report Released Date/Time: Nov 09, 2023 02:19 PM Reporting Lab: [address] [address] Performing Lab: [address] [address] PROTEIN,TOTAL 7.1 g/dL 6.0-8.3 ALBUMIN 4.1 g/dL 3.5-5.0 ALKALINE PHOSPHATASE 57 U/L 40-150 AST 20 U/L 5-34 ALT 21 U/L BILIRUBIN, TOTAL 1.0 mg/dL 0.2-1.2 May 06, 2024 08:47 AM [facility] LIPID PANEL FASTING Specimen Type: SERUM No comment entered. Ordering Provider: EDA ARNOLD Report Released Date/Time: Nov 09, 2023 02:19 PM Reporting Lab: [facility] [address] [facility] [address] Performing Lab: [address] [address] CHOLESTEROL 232 mg/dL H TRIGLYCERIDE 139 mg/dL 0-150 LDL calculated 150 mg/dL H 0-129 CHOL/HDL 4.3 HDL CHOLESTEROL 54 mg/dL 40-60 Social History: Smoking Status (Most current) and Tobacco Use (All prior to encounter date) This section includes the most current, and the historical, smoking and tobacco- related health factors from the [place] facility where the Encounter took place. Current Smoking Status This section includes the most current smoking, or tobacco-related health factor, from the [place] facility where the Encounter took place. Date/Time Current Smoking Status Comment Facil ity Nov 09, 2023 02:00 PM [place]-TOBACCO NEVER USED [facility] Tobacco Use History This section includes a history of the smoking, or tobacco-related health factors, that were collected on or before the date of the Encounter. The data comes from the [place] facility where the Encounter took place. Date/Time Smoking Status/Tobacco Use Comment F daniella Sep 26, 2022 08:00 AM [place]-TOBACCO NEVER USED [facility] Encounter Notes: All associated encounter [...] RASMUSSEN LICENSED PRACTICAL NURSE JUAN MANUEL RASMUSSEN [facility]
--- OUTSIDE RECORDS SUMMARY | 2024-11-13 08:27 | XMS_ITS | Encounter Summary ---
Author Name [facility] [place] Organization [place] Address [address] [place] [address] Care Team Providers Care Deputy Director Of Finance Name Role Phone ZURI GAMBOA Primary Care [...] (BLUE CARD) MEDIGAP PLAN C 000 000 [phone] , [facility] CE ORGANIZ FAIRV IEW COMMO NS May 27, 2020 [id number] VYES PULIDO PATIENT [facility] CE ORGANIZAT ION CHICO PEE EARLY RETIR May 27, 2020 [id number] YVES PULIDO PATIENT OPTUM RX PRESCRIPT ION HEALT H [place] May 27, 2020 [facility] [id number] YVES PULIDO PATIENT Selected Encounter This section includes the information on record at [place] for the Encounter. Date/Time Encounter Type Encounter Description Reason Pro vider Source May 17, 2024 12:00 PM Outpatient Encounter COMMUNITY CARE CONSULT IHE Encounter Template Text not used by VA Plan of Treatment: Future Appointments (+ 6 months) and Future Tests (+/- 45 days) The Plan of Treatment section includes future care activities for the patient from all [place] treatment[facility]. This section includes future appointments and future orders which are active, pending or scheduled. Future Appointments This section includes appointments that were scheduled to occur 6 months from the date of the Encounter, up to a maximum of 20 appointments. The data comes from all [place] treatment facilities. Appointment Date/Time Appointment Type Appointme nt Facility Name May 28, 2024 09:30 AM AMBULATORY - MEDICINE [facility] Jul 24, 2024 08:30 AM AMBULATORY - MEDICINE [facility] Lab Results: +/- 30 days of the encounter This section includes the Chemistry and Hematology Lab Results on record with [place] for the patient. Radiology Reports and Pathology Reports are provided separately, in subsequent sections. Lab Results This section contains the Chemistry/Hematology Results that were resulted 30 days before or 30 daysafter the date of the Encounter. Date/Time Source Result Type Result - Unit Interpretation Reference Range Comment May 06, 2024 08:47 AM [facility] HEPATITIS B SURFACE ANTIBODY (HBsAb)-[facility] Specimen Type: SERUM No comment entered. Ordering Provider: EDA ARNOLD Report Released Date/Time: Nov 09, 2023 02:19 PM Reporting Lab: [facility] [address] [facility] [address] Performing Lab: [facility] [address] [facility] [address] HBsAb Non Reactive Non Reactive May 06, 2024 08:47 AM [facility] HEPATITIS A ANTIBODY (IGG) Specimen Type: SERUM Comment: Hep A IgG: A 'Non-reactive ' result indicates no anti-HAV IgG was detected. Ordering Provider: EDA ARNOLD Report Released Date/Time: Nov 09, 2023 02:19 PM Reporting Lab: [address] [address] Performing Lab: [facility] [address] [facility] [address] HEPATITIS A ANTIBODY (IGG) Non Reactive Non Reactive May 06, 2024 08:47 AM [facility] BASIC METABOLIC PANEL (fasting) Specimen Type: SERUM No comment entered. Ordering Provider: EDA ARNOLD Report Released Date/Time: Nov 09, 2023 02:19 PM Reporting Lab: [address] [address] Performing Lab: [address] [address] UREA NITROGEN 14 mg/dL 7-25 GLUCOSE 111 mg/dL H 65-100 SODIUM 141 mmol/L 135-145 POTASSIUM 4.2 mmol/L 3.5-5.0 CHLORIDE 109 mmol/L 100-110 CO2 24 meq/L 20-30 CREATININE, Serum 1.25 mg/dL 0.50-1.40 eGFR(CKD-EPI 2020) 66 mL/min >60 May 06, 2024 08:47 AM [facility] LIVER FUNCTION Specimen Type: SERUM No comment entered. Ordering Provider: EDA ARNOLD Report Released Date/Time: Nov 09, 2023 02:19 PM Reporting Lab: [address] [address] Performing Lab: [address] [address] PROTEIN,TOTAL 7.1 g/dL 6.0-8.3 ALBUMIN 4.1 g/dL 3.5-5.0 ALKALINE PHOSPHATASE 57 U/L 40-150 AST 20 U/L 5-34 ALT 21 U/L BILIRUBIN, TOTAL 1.0 mg/dL 0.2-1.2 May 06, 2024 08:47 AM [facility] LIPID PANEL FASTING Specimen Type: SERUM No comment entered. Ordering Provider: EDA ARNOLD Report Released Date/Time: Nov 09, 2023 02:19 PM Reporting Lab: [address] [address] Performing Lab: [address] [address] CHOLESTEROL 232 mg/dL H TRIGLYCERIDE 139 mg/dL 0-150 LDL calculated 150 mg/dL H 0-129 CHOL/HDL 4.3 HDL CHOLESTEROL 54 mg/dL 40-60 Social History: Smoking Status (Most current) and Tobacco Use (All prior to encounter date) This section includes the most current, and the historical, smoking and tobacco- related health factors from the [place] facility where the Encounter took place. Current Smoking Status This section includes the most current smoking, or tobacco-related health factor, from the [place] facility where the Encounter took place. Date/Time Current Smoking Status Comment Facil ity Nov 09, 2023 02:00 PM VA-TOBACCO NEVER USED [facility] Tobacco Use History This section includes a history of the smoking, or tobacco-related health factors, that were collected on or before the date of the Encounter. The data comes from the [place] facility where the Encounter took place. Date/Time Smoking Status/Tobacco Use Comment F daniella Sep 26, 2022 08:00 AM VA-TOBACCO NEVER USED [facility]
--- OUTSIDE RECORDS SUMMARY | 2024-11-13 08:27 | XMS_ITS ---
Author Name [facility] [place] [facility] [place] Address [address] [place] [address] Care Team Providers Care Clinical Science Liaison Name Role Phone ZURI GAMBOA Primary Care [...] (BLUE CARD) MEDIGAP PLAN C 000 000 [phone] , [facility] CE ORGANIZ FAIRV IEW COMMO NS May 27, 2020 [id number] YVES PULIDO PATIENT [facility] CE ORGANIZAT ION CHICO PEE EARLY RETIR May 27, 2020 [id number] YVES PULIDO PATIENT OPTUM RX PRESCRIPT ION HEALT H [place] May 27, 2020 [facility] [id number] [id number] YVES PULIDO PATIENT Selected Encounter This section includes the information on record at [place] for the Encounter. Date/Time Encounter Type Encounter Description Reason Pro vider Source May 17, 2024 12:00 AM Outpatient Encounter COMMUNITY CARE CONSULT IHE Encounter Template Text not used by VA Plan of Treatment: Future Appointments (+ 6 months) and Future Tests (+/- 45 days) The Plan of Treatment section includes future care activities for the patient from all [place] [facility]. This section includes future appointments and future orders which are active, pending or scheduled. Future Appointments This section includes appointments that were scheduled to occur 6 months from the date of the Encounter, up to a maximum of 20 appointments. The data comes from all [place] treatment facilities. Appointment Date/Time Appointment Type Appointme nt Facility Name May 28, 2024 09:30 AM AMBULATORY - MEDICINE [facility] Jul 24, 2024 08:30 AM AMBULATORY - MEDICINE [facility] Lab Results: +/- 30 days of the encounter This section includes the Chemistry and Hematology Lab Results on record with [place] for the patient. Radiology Reports and Pathology Reports are provided separately, in subsequent sections. Lab Results This section contains the Chemistry/Hematology Results that were resulted 30 days before or 30 daysafter the date of the Encounter. Date/Time Source Result Type Result - Unit Interpretation Reference Range Comment May 06, 2024 08:47 AM [facility] HEPATITIS B SURFACE ANTIBODY (HBsAb)-[facility] Specimen Type: SERUM No comment entered. Ordering Provider: EDA ARNOLD Report Released Date/Time: Nov 09, 2023 02:19 PM Reporting Lab: [facility] [address] [facility] [address] Performing Lab: [facility] [address] [facility] [facility] [address] HBsAb Non Reactive Non Reactive May 06, 2024 08:47 AM [facility] HEPATITIS A ANTIBODY (IGG) Specimen Type: SERUM Comment: Hep A IgG: A 'Non-reactive ' result indicates no anti-HAV IgG was detected. Ordering Provider: EDA ARNOLD Report Released Date/Time: Nov 09, 2023 02:19 PM Reporting Lab: [address] [address] Performing Lab: [facility] [address] [facility] [facility] [address] HEPATITIS A ANTIBODY (IGG) Non Reactive Non Reactive May 06, 2024 08:47 AM [facility] BASIC METABOLIC PANEL (fasting) Specimen Type: SERUM No comment entered. Ordering Provider: EDA ARNOLD Report Released Date/Time: Nov 09, 2023 02:19 PM Reporting Lab: [address] [address] Performing Lab: [address] [address] UREA NITROGEN 14 mg/dL 7-25 GLUCOSE 111 mg/dL H 65-100 SODIUM 141 mmol/L 135-145 POTASSIUM 4.2 mmol/L 3.5-5.0 CHLORIDE 109 mmol/L 100-110 CO2 24 meq/L 20-30 CREATININE, Serum 1.25 mg/dL 0.50-1.40 eGFR(CKD-EPI 2020) 66 mL/min >60 May 06, 2024 08:47 AM [facility] LIVER FUNCTION Specimen Type: SERUM No comment entered. Ordering Provider: EDA ARNOLD Report Released Date/Time: Nov 09, 2023 02:19 PM Reporting Lab: [address] [address] Performing Lab: [address] [address] PROTEIN,TOTAL 7.1 g/dL 6.0-8.3 ALBUMIN 4.1 g/dL 3.5-5.0 ALKALINE PHOSPHATASE 57 U/L 40-150 AST 20 U/L 5-34 ALT 21 U/L BILIRUBIN, TOTAL 1.0 mg/dL 0.2-1.2 May 06, 2024 08:47 AM [facility] LIPID PANEL FASTING Specimen Type: SERUM No comment entered. Ordering Provider: EDA ARNOLD Report Released Date/Time: Nov 09, 2023 02:19 PM Reporting Lab: [address] [address] Performing Lab: [address] [address] CHOLESTEROL 232 mg/dL H TRIGLYCERIDE 139 mg/dL 0-150 LDL calculated 150 mg/dL H 0-129 CHOL/HDL 4.3 HDL CHOLESTEROL 54 mg/dL 40-60 Social History: Smoking Status (Most current) and Tobacco Use (All prior to encounter date) This section includes the most current, and the historical, smoking and tobacco- related health factors from the [place] facility where the Encounter took place. Current Smoking Status This section includes the most current smoking, or tobacco-related health factor, from the [place] facility where the Encounter took place. Date/Time Current Smoking Status Comment Facil ity Nov 09, 2023 02:00 PM VA-TOBACCO NEVER USED [facility] Tobacco Use History This section includes a history of the smoking, or tobacco-related health factors, that were collected on or before the date of the Encounter. The data comes from the [place] facility where the Encounter took place. Date/Time Smoking Status/Tobacco Use Comment F acility Sep 26, 2022 08:00 AM VA-TOBACCO NEVER USED [facility] Encounter Notes: All associated encounter notes This section contains the clinical notes associated to the Encounter. Date/Time Encounter Note(s) Provider Source May 17, 2024 12:00 AM NONVA CONSULT: LOCAL TITLE: COMMUNITY CARE-CONSULT RESULT NOTE STANDARD TITLE: NONVA CONSULT DATE OF NOTE: MAY 17, 2024 ENTRY DATE: JUN 17, 2024@15:15:02 AUTHOR: DEBO ACKERMAN MA EXP COSIGNER: URGENCY: STATUS: COMPLETED VistA Imaging - Scanned Document SCANNED DOCUMENT SIGNATURE NOT REQUIRED Electronically Filed: 06/17/2024 by: DEBO ACKERMAN UNIT DIRECTOR DEBO ACKERMAN [facility]
--- OUTSIDE RECORDS SUMMARY | 2024-11-13 08:27 | XMS_ITS ---
Author Name [facility] [place] Organization [facility] [place] Address [address] [place] [address] Care Team Providers Care Electrical Troubleshooter Name Role Phone ZURI GAMBOA Primary Care [...] CARD) MEDIGAP PLAN C 000 000 , [facility] CE ORGANIZ FAIRV IEW COMMO NS May 27, 2020 [id number] YVES PULIDO PATIENT [facility] CE ORGANIZAT ION CHICO PEE EARLY RETIR May 27, 2020 [id number] YVES PULIDO PATIENT OPTUM RX PRESCRIPT ION HEALT H [place] May 27, [address] [facility] [id number] [phone] YVES PULIDO PATIENT Selected Encounter This section includes the information on record at [place] for the Encounter. Date/Time Encounter Type Encounter Description Reason Pro vider Source May 28, 2024 12:00 PM Outpatient Encounter COMMUNITY CARE CONSULT IHE Encounter Template Text not used by VA Plan of Treatment: Future Appointments (+ 6 months) and Future Tests (+/- 45 days) The Plan of Treatment section includes future care activities for the patient from all [place] treatmentfacilities. This section includes future appointments and future orders which are active, pending or scheduled. Future Appointments This section includes appointments that were scheduled to occur 6 months from the date of the Encounter, up to a maximum of 20 appointments. The data comes from all [place] treatment facilities. Appointment Date/Time Appointment Type Appointme nt Facility Name Jul 24, 2024 08:30 AM AMBULATORY - MEDICINE [facility] Lab Results: +/- 30 days of the encounter This section includes the Chemistry and Hematology Lab Results on record with [place] for the patient. Radiology Reports and Pathology Reports are provided separately, in subsequent sections. Lab Results This section contains the Chemistry/Hematology Results that were resulted 30 days before or 30 daysafter the date of the Encounter. Date/Time Source Result Type Result - Unit Interpretation Reference Range Comment May 06, 2024 08:47 AM [facility] HEPATITIS B SURFACE ANTIBODY (HBsAb)-[place] Specimen Type: SERUM No comment entered. Ordering Provider: EDA ARNOLD Report Released Date/Time: Nov 09, 2023 02:19 PM Reporting Lab: [address] [address] Performing Lab: [address] [address] HBsAb Non Reactive Non Reactive May 06, 2024 08:47 AM [facility] HEPATITIS A ANTIBODY (IGG) Specimen Type: SERUM Comment: Hep A IgG: A 'Non-reactive ' result indicates no anti-HAV IgG was detected. Ordering Provider: EDA ARNOLD Report Released Date/Time: Nov 09, 2023 02:19 PM Reporting Lab: [address] [address] Performing Lab: [address] [address] HEPATITIS A ANTIBODY (IGG) Non Reactive Non Reactive May 06, 2024 08:47 AM [facility] BASIC METABOLIC PANEL (fasting) Specimen Type: SERUM No comment entered. Ordering Provider: EDA ARNOLD Report Released Date/Time: Nov 09, 2023 02:19 PM Reporting Lab: [facility] [address] [facility] [address] Performing Lab: [address] [address] UREA NITROGEN 14 mg/dL 7-25 GLUCOSE 111 mg/dL H 65-100 SODIUM 141 mmol/L 135-145 POTASSIUM 4.2 mmol/L 3.5-5.0 CHLORIDE 109 mmol/L 100-110 CO2 24 meq/L 20-30 CREATININE, Serum 1.25 mg/dL 0.50-1.40 eGFR(CKD-EPI 2020) 66 mL/min >60 May 06, 2024 08:47 AM [facility] LIVER FUNCTION Specimen Type: SERUM No comment entered. Ordering Provider: EDA ARNOLD Report Released Date/Time: Nov 09, 2023 02:19 PM Reporting Lab: [address] [address] Performing Lab: [address] [address] PROTEIN,TOTAL 7.1 g/dL 6.0-8.3 ALBUMIN 4.1 g/dL 3.5-5.0 ALKALINE PHOSPHATASE 57 U/L 40-150 AST 20 U/L 5-34 ALT 21 U/L BILIRUBIN, TOTAL 1.0 mg/dL 0.2-1.2 May 06, 2024 08:47 AM [facility] LIPID PANEL FASTING Specimen Type: SERUM No comment entered. Ordering Provider: EDA ARNOLD Report Released Date/Time: Nov 09, 2023 02:19 PM Reporting Lab: [facility] [address] [facility] [address] Performing Lab: [address] [address] CHOLESTEROL 232 mg/dL H TRIGLYCERIDE 139 mg/dL 0-150 LDL calculated 150 mg/dL H 0-129 CHOL/HDL 4.3 HDL CHOLESTEROL 54 mg/dL 40-60 Social History: Smoking Status (Most current) and Tobacco Use (All prior to encounter date) This section includes the most current, and the historical, smoking and tobacco- related health factors from the [place] facility where the Encounter took place. Current Smoking Status This section includes the most current smoking, or tobacco-related health factor, from the [place] facility where the Encounter took place. Date/Time Current Smoking Status Comment Facil ity Nov 09, 2023 02:00 PM VA-TOBACCO NEVER USED [facility] Tobacco Use History This section includes a history of the smoking, or tobacco-related health factors, that were collected on or before the date of the Encounter. The data comes from the [place] facility where the Encounter took place. Date/Time Smoking Status/Tobacco Use Comment F daniella Sep 26, 2022 08:00 AM VA-TOBACCO NEVER USED [facility] Encounter Notes: All associated encounter notes This section contains the clinical notes associated to the Encounter. Date/Time Encounter Note(s) Provider Source May 28, 2024 12:00 PM ACUPUNCTURE CONSUL T: LOCAL TITLE: CONSULT REPORT/ACUPUNCTURE STANDARD TITLE: ACUPUNCTURE CONSULT DATE OF NOTE: MAY 28, 2024@12:00 ENTRY DATE: JUN 22, 2024@09:24:28 AUTHOR: FELICITA NOLASCO EXP COSIGNER: URGENCY: STATUS: COMPLETED VistA Imaging - Scanned Document SCANNED DOCUMENT SIGNATURE NOT REQUIRED Electronically Filed: 06/22/2024 by: FELICITA RODNEY [facility]
--- OUTSIDE RECORDS SUMMARY | 2024-11-13 08:27 | XMS_ITS | Encounter Summary ---
Author Name Department of [facility] [place]) Organization [place] Address [address] [place] [address] Care Team Providers Care Investigator Welfare Name Role Phone ZURI GAMBOA Primary Care [...] MEDIGAP PLAN C 000 000 , [facility] CE ORGANIZ FAIRV IEW COMMO NS May 27, 2020 [id number] YVES PULIDO PATIENT [facility] CE ORGANIZAT ION CHICO PEE EARLY RETIR May 27, 2020 [id number] YVES PULIDO PATIENT OPTUM RX PRESCRIPT ION HEALT H [place] May 27, 2020 [facility] [id number] YVES PULIDO PATIENT Selected Encounter This section includes the information on record at [place] for the Encounter. Date/Time Encounter Type Encounter Description Reason Pro vider Source Jun 07, 2024 12:00 AM Outpatient Encounter COMMUNITY CARE CONSULT IHE Encounter Template Text not used by VA Plan of Treatment: Future Appointments (+ 6 months) and Future Tests (+/- 45 days) The Plan of Treatment section includes future care activities for the patient from all [place] [facility]. This section includes future appointments and future orders which are active, pending or scheduled. Future Appointments This section includes appointments that were scheduled to occur 6 months from the date of the Encounter, up to a maximum of 20 appointments. The data comes from all [place] treatment facilities. Appointment Date/Time Appointment Type Appointme nt Facility Name Jul 24, 2024 08:30 AM AMBULATORY - MEDICINE [facility] Social History: Smoking Status (Most current) and Tobacco Use (All prior to encounter date) This section includes the most current, and the historical, smoking and tobacco- related health factors from the [place] facility where the Encounter took place. Current Smoking Status This section includes the most current smoking, or tobacco-related health factor, from the [place] facility where the Encounter took place. Date/Time Current Smoking Status Comment Facil ity Nov 09, 2023 02:00 PM MD-TOBACCO NEVER USED [facility] Tobacco Use History This section includes a history of the smoking, or tobacco-related health factors, that were collected on or before the date of the Encounter. The data comes from the [place] facility where the Encounter took place. Date/Time Smoking Status/Tobacco Use Comment F acility Sep 26, 2022 08:00 AM [place]-TOBACCO NEVER USED [facility] Encounter Notes: All associated encounter notes This section contains the clinical notes associated to the Encounter. Date/Time Encounter Note(s) Provider Source Jun 07, 2024 12:00 AM NONVA CONSULT: LOCAL TITLE: COMMUNITY CARE-CONSULT RESULT NOTE STANDARD TITLE: NONVA CONSULT DATE OF NOTE: JUN 07, 2024 ENTRY DATE: JUN 26, 2024@11:36:21 AUTHOR: OMAR ZURITA EXP COSIGNER: URGENCY: STATUS: COMPLETED VistA Imaging - Scanned Document SCANNED DOCUMENT SIGNATURE NOT REQUIRED Electronically Filed: 06/26/2024 by: OMAR GOULD [facility]
--- OUTSIDE RECORDS SUMMARY | 2024-11-13 08:28 | XMS_ITS | Encounter Summary ---
Author Name Department of [facility] [place] [facility] [place] Organization [place] Address [address] [place] [address] Care Team Providers Care Travel Occupational Therapist Name Role Phone ZURI GAMBOA Primary Care [...] PLAN C 000 000 [phone] , [facility] CE ORGANIZ FAIRV IEW COMMO NS May 27, 2020 [id number] YVES PULIDO PATIENT [facility] CE ORGANIZAT ION CHICO PEE EARLY RETIR May 27, 2020 [id number] YVES PULIDO PATIENT OPTUM RX PRESCRIPT ION HEALT H [place] May 27, 2020 [id number] YVES PULIDO PATIENT Selected Encounter This section includes the information on record at [place] for the Encounter. Date/Time Encounter Type Encounter Description Reason Provider Source Jul 24, 2024 08:30 AM OFF/OP EST MARCH X REQ PHY/QHP PRIMARY CARE/MEDICINE ICD-10-CM Z23 Encounter for immunization AUGUST MOMIN IHE Encounter Template Text not used by [place] Assessments - Encounter Diagnoses This section includes the primary and secondary diagnoses documented for the Encounter. Date/Time Primary/Secondary Diagnosis Diagnosis Name Provider Source Jul 24, 2024 09:05 AM PRIMARY Encounter for immunization AUGUST MOMIN [facility] Immunizations: All administered on the encounter date [...] Facil ity Nov 09, 2023 02:00 PM IA-TOBACCO NEVER USED [facility] Tobacco Use History This section includes a history of the smoking, or tobacco-related health factors, that were collected on or before the date of the Encounter. The data comes from the [place] facility where the Encounter took place. Date/Time Smoking Status/Tobacco Use Comment F acility Sep 26, 2022 08:00 AM [place]-TOBACCO NEVER USED [facility] Encounter Notes: All associated encounter notes This [...] RECOMBINANT Date Administered: Jul 24, 2024 08:30 Signs And Displays Sales Representative: [employer] Lot: [id number] Exp Date: May 12, 2026 [facility]: [phone] Admin Route/Site: INTRAMUSCULAR/LEFT DELTOID Dosage: 0.5mL Vaccine Information Statement(s): RECOMBINANT ZOSTER VACCINE VIS Dec 31, 2021 ([place]) Order By: Policy Administered By: Gely Momin Comment: Diluent lot # [id number] expiration 05/12/26 Vaccine Information Sheet (VIS) was given to the patient/caregiver, education regarding adverse reactions was discussed, as well as barriers to learning, if any, were acknowledged. tolerated procedure well, left clinic ambulatory. /es/ GELY MOMIN RN REGISTERED NURSE Signed: 07/24/2024 09:05 GELY MOMIN [place] [facility]
--- OUTSIDE RECORDS SUMMARY | 2024-11-13 08:28 | XMS_ITS ---
Author Name [facility] [place] [facility] [place] Organization [place] Address [address] [place] [address] Care Team Providers Care Food And Nutrition Services Supervisor Name Role Phone ZURI GAMBOA Primary [...] CARD) MEDIGAP PLAN C 000 000 , [facility] CE ORGANIZ FAIRV IEW COMMO NS May 27, 2020 [id number] YVES PULIDO PATIENT [facility] CE ORGANIZAT ION CHICO PEE EARLY RETIR May 27, 2020 [id number] [id number] YVES PULIDO PATIENT OPTUM RX PRESCRIPT ION HEALT H NEW ENGLA ND May 27, 2020 [facility] [id number] [phone] YVES PULIDO PATIENT Selected Encounter This section includes the information on record at [place] for the Encounter. Date/Time Encounter Type Encounter Description Reason Pro vider Source Jun 10, 2024 12:00 AM Outpatient Encounter COMMUNITY CARE CONSULT IHE Encounter Template Text not used by VA Plan of Treatment: Future Appointments (+ 6 months) and Future Tests (+/- 45 days) The Plan of Treatment section includes future care activities for the patient from all [place] [facility]. This section includes future appointments [...] 2024 08:30 AM AMBULATORY - MEDICINE [facility] Social History: Smoking Status (Most current) [...] 09, 2023 02:00 PM [place]-TOBACCO NEVER USED [facility] Tobacco Use History This section includes a history of the smoking, or tobacco-related health factors, that were collected on or before the date of the Encounter. The data comes from the [place] facility where the Encounter took place. Date/Time Smoking Status/Tobacco Use Comment F acility Sep 26, 2022 08:00 AM [place]-TOBACCO NEVER USED [facility] Encounter Notes: All associated encounter notes This section contains the clinical notes associated to the Encounter. Date/Time Encounter Note(s) Provider Source Jun 10, 2024 12:00 AM NONVA CONSULT: LOCAL TITLE: COMMUNITY CARE-CONSULT RESULT NOTE STANDARD TITLE: NONVA CONSULT DATE OF NOTE: JUN 10, 2024 ENTRY DATE: JUN 27, 2024@13:16:21 AUTHOR: OMAR ZURITA EXP COSIGNER: URGENCY: STATUS: COMPLETED VistA Imaging - Scanned Document SCANNED DOCUMENT SIGNATURE NOT REQUIRED Electronically Filed: 06/27/2024 by: OMAR GOULD [facility]
--- OUTSIDE RECORDS SUMMARY | 2024-11-13 08:28 | XMS_ITS | Encounter Summary ---
Author Name [facility] [place] Address [address] [place] [address] Care Team Providers Care Metal Control Worker Name Role Phone ZURI GAMBOA Primary [...] CARD) MEDIGAP PLAN C 000 000 , [facility] CE ORGANIZ FAIRV IEW COMMO NS May 27, 2020 [id number] YVES PULIDO PATIENT [facility] CE ORGANIZAT ION CHICO PEE EARLY RETIR May 27, 2020 [id number] [phone] [id number] YVES PULIDO PATIENT OPTUM RX PRESCRIPT ION HEALT H NEW ENGLA ND May 27, 2020 [facility] [id number] [phone] YVES PULIDO PATIENT Selected Encounter This section includes the information on record at [place] for the Encounter. Date/Time Encounter Type Encounter Description Reason Pro vider Source Jun 20, 2024 12:00 PM Outpatient Encounter COMMUNITY CARE CONSULT IHE Encounter Template Text not used by VA Plan of Treatment: Future Appointments (+ 6 months) and Future Tests (+/- 45 days) The Plan of Treatment section includes future care activities for the patient from all [place] [facility]. This section includes future appointments and future orders which are active, pending or scheduled. Future Appointments This section includes appointments that were scheduled to occur 6 months from the date of the Encounter, up to a maximum of 20 appointments. The data comes from all [place] treatment facilities. Appointment Date/Time Appointment Type Appointme nt Facility Name Jul 24, 2024 08:30 AM AMBULATORY - MEDICINE [facility] Social History: Smoking Status (Most current) and Tobacco Use (All prior to encounter date) This section includes the most current, and the historical, smoking and tobacco- related health factors from the [place] facility where the Encounter took place. Current Smoking Status This section includes the most current smoking, or tobacco-related health factor, from the [place] facility where the Encounter took place. Date/Time Current Smoking Status Comment Facil ity Nov 09, 2023 02:00 PM [place]-TOBACCO NEVER USED [facility] Tobacco Use History This section includes a history of the smoking, or tobacco-related health factors, that were collected on or before the date of the Encounter. The data comes from the [place] facility where the Encounter took place. Date/Time Smoking Status/Tobacco Use Comment F acility Sep 26, 2022 08:00 AM [place]-TOBACCO NEVER USED [facility] Encounter Notes: All associated encounter notes This [...] REQUIRED Electronically Filed: 07/17/2024 by: DEBO ACKERMAN [employer]STERS MANAGER DEBO ACKERMAN [facility]
--- OUTSIDE RECORDS SUMMARY | 2024-11-13 08:28 | XMS_ITS ---
Author Name [facility] [place] [facility] [place] Address [address] [place] [address] Care Team Providers Care Coding Team Lead Name Role Phone ZURI GAMBOA Primary Care [...] (BLUE CARD) MEDIGAP PLAN C 000 000 [phone] , [facility] CE ORGANIZ FAIRV IEW COMMO NS May 27, 2020 [id number] YVES PULIDO PATIENT [facility] CE ORGANIZAT ION CHICO PEE EARLY RETIR May 27, 2020 [id number] [phone] [id number] YVES PULIDO PATIENT OPTUM RX PRESCRIPT ION HEALT H NEW ENGLA ND May 27, 2020 [facility] [id number] [phone] YVES PULIDO PATIENT Selected Encounter This [...] care activities for the patient from all [place] [facility]. This section includes future appointments and future orders which are active, pending or scheduled. Future Appointments This section includes appointments that were scheduled to occur 6 months from the date of the Encounter, up to a maximum of 20 appointments. The data comes from all [place] treatment facilities. Appointment Date/Time Appointment Type Appointme nt Facility Name Jul 24, 2024 08:30 AM AMBULATORY - MEDICINE [facility] Social History: Smoking Status (Most [...] Facil ity Nov 09, 2023 02:00 PM [place]-TOBACCO NEVER USED [facility] Tobacco Use History This section includes a history of the smoking, or tobacco-related health factors, that were collected on or before the date of the Encounter. The data comes from the [place] facility where the Encounter took place. Date/Time Smoking Status/Tobacco Use Comment F acility Sep 26, 2022 08:00 AM [place]-TOBACCO NEVER USED [facility] Encounter Notes: All associated encounter notes This [...] REQUIRED Electronically Filed: 07/17/2024 by: DEBO ACKERMAN [employer] MACHINE OPERATOR DEBO ACKERMAN [facility]
== END 2024-11-13 08:33 | disposition home or self-care (01) ==
PROVIDERS: PCP Internal Medicine Medical Oncology; Referring Provider Internal Medicine Medical Oncology; Visit Provider Surgery
DX: K64.5 Perianal venous thrombosis (principal)
CPT/HCPCS: 99204

== ENCOUNTER → 2024-11-13 08:14 | Outpatient (BNVA) | payer OTHER, SELFPAY | PROVIDERS: PCP Internal Medicine Medical Oncology; Referring Provider Internal Medicine Medical Oncology; Visit Provider Surgery ==

== ENCOUNTER 2024-12-11 07:16 | Outpatient (AMB) | payer OTHER, SELFPAY ==
--- NOTE | 2024-12-11 07:34 | MHC.OFFVIS ---
Vital Signs 12/11/24 07:35 Height 5 ft 7 in Weight 217 lb BMI 34.0 BP 145/81 H Blood Pressure Location Rt brachial Position Sitting Pulse 71 Intake Visit Reasons: Lump on anus Intake Note: Patient scheduled today's appointment to followup hemorrhoids. Patient c/o: mild improvement. Pocket Marker Required: No Accompanied by: Self / Same As Patient Allergies Yuzclgy-PXD-XxC Reductase Inhibitor [EHAQUBH-PCX-HTE REDUCTASE INHIBITOR] Allergy (Severe, Verified 12/11/24 07:35) SEVERE HIVES statins Allergy (Unknown, Uncoded 12/11/24 07:35) hives HPI Comments Details: Patient was just for follow-up. He was seen several weeks ago because of the symptomatic hemorrhoid. Patient has been doing his bowel regimen. He has had marked improvement of his anorectal symptoms. [facility] Medical History Snoring Hypersomnia Dislocation of right shoulder joint Low back pain Surgical History S/P surgery for recurrent dislocation of shoulder Status post discectomy for herniated nucleus pulposus History of surgical removal of ganglion cyst H/O colonoscopy History of carpal tunnel surgery S/P left knee arthroscopy Family History Mother Diabetes Hyperlipidemia Hypertension Father Alcohol abuse Social History Patient Tobacco Use Status: Never used Tobacco Current occupational status: retired Current occupation: rt hand dominant Physical Exam Vital Signs: Last Vital Signs Pulse 71 12/11/24 07:35 BP 145/81 H 12/11/24 07:35 BMI result Body Mass Index 34.0 GI Other: Abdomen is soft benign. Rectal exam demonstrates very small residual hemorrhoid. Assessment & Plan Assessment & Plan (1) Thrombosed external hemorrhoids: Code(s): K64.5 - Perianal venous thrombosis Category: Surgical Plan Patient was continue is current dietary modification, staying hydrated, avoid prolonged sitting on a toilet, avoid constipation. He will otherwise follow-up p.r.n.. All questions answered. Coding Level of Care Code Est Pt Level 4 (26623) Diagnoses Thrombosed external hemorrhoids K64.5
[2024-12-11 07:35] VITALS: BP 145/81; PULSE 71; BMI 34.0
== END 2024-12-11 07:37 | disposition home or self-care (01) ==
PROVIDERS: PCP Internal Medicine Medical Oncology; Visit Provider Surgery
DX: K64.5 Perianal venous thrombosis (principal)
CPT/HCPCS: 99214

== ENCOUNTER → 2024-12-11 07:16 | Outpatient (BNVA) | payer OTHER, SELFPAY | PROVIDERS: PCP Internal Medicine Medical Oncology; Visit Provider Surgery ==

== ENCOUNTER 2025-05-05 14:18 | Outpatient (REF) | payer OTHER, SELFPAY ==
--- NOTE | ~2025-05-05 | XR_ITS ---
EXAMINATION: XR KNEE, LEFT CLINICAL INFORMATION: PAIN COMPARISON: None available. TECHNIQUE: AP lateral and sunrise view of the left knee. FINDINGS: Joint spaces are preserved. There are small osteophytes involving the intercondylar spines. Small amount joint fluid is evident. There is possible thickening of the proximal patellar tendon. XR/XR knee LT 3V IMPRESSION: Possible patellar tendinopathy. Electronically signed by: Roly Real MD 05/05/2025 03:23 PM EDT
--- NOTE | ~2025-05-05 | XR_ITS ---
EXAMINATION: XR ANKLE, LEFT CLINICAL INFORMATION: PAIN COMPARISON: None available. TECHNIQUE: AP, lateral, and mortise views of the left ankle. FINDINGS: Ankle mortise is congruent. There is no widening of the syndesmosis. The talar dome appears intact. There is a small bony fragment distal to the fibula. There is a posterior process of talus. There is lateral soft tissue swelling. XR/XR ankle LT min 3V IMPRESSION: Acute versus chronic avulsion fracture at the inferior tip of fibula. Electronically signed by: Roly Real MD 05/05/2025 03:21 PM EDT
--- OUTSIDE RECORDS SUMMARY | 2025-05-05 16:16 | XMS_ITS ---
Author Name [facility] Address [address] [place] [address] Care Team Providers Care Veterinary Parasitologist Name Role Phone ZURI GAMBOA Primary Care [...] CARD) MEDIGAP PLAN C 000 000 , [facility] CE ORGANIZAT ION FAIRV IEW COMMO NS May 27, 2020 [id number] YVES PULIDO PATIENT [facility] CE ORGANIZAT ION [place] PEE EARLY RETIR May 27, 2020 [id number] YVES PULIDO PATIENT [facility] PRESCRIPT ION HEALT H NEW ENGLA ND May 27, 2020 [facility] [id number] [id number] YVES PULIDO PATIENT Selected Encounter This section includes the information on record at [place] for the Encounter. Date/Time Encounter Type Encounter Description Reason Pro vider Source Sep 27, 2024 02:20 PM Outpatient Encounter ADMIN PAT ACTIVTIES (MASNONCT) IHE Encounter Template Text not used by [place] Social History: Smoking Status (Most current) and Tobacco Use (All prior to encounter date) This section includes the most current, and the historical, smoking and tobacco- related health factors from the [place] facility where the Encounter took place. Current Smoking Status This section includes the most current smoking, or tobacco-related health factor, from the [place] facility where the Encounter took place. Date/Time Current Smoking Status Comment Lindsay hernandez Nov 09, 2023 02:00 PM VA-TOBACCO NEVER USED [facility] Tobacco Use History This section includes a history of the smoking, or tobacco-related health factors, that were collected on or before the date of the Encounter. The data comes from the [place] facility where the Encounter took place. Date/Time Smoking Status/Tobacco Use Comment Milady brewer Sep 26, 2022 08:00 AM VA-TOBACCO NEVER USED [facility] Encounter Notes: All associated encounter notes This section contains the clinical notes associated to the Encounter. Date/Time Encounter Note(s) Provider Source Sep 27, 2024 02:20 PM PHARMACY NOTE: LOCAL TITLE: PHARMACY CUSTOMER CARE MEDICATION RENEWAL STANDARD TITLE: PHARMACY NOTE DATE OF NOTE: SEP 27, 2024@14:20 ENTRY DATE: SEP 27, 2024@14:21:03 AUTHOR: RAJIV DENNISON EXP COSIGNER: URGENCY: STATUS: COMPLETED Date: Sep Division: [facility] [place] referred by Pharmacy Call Center for medication renewal: Non-controlled/maintenanc e medication Medications requested: [id number] LOSARTAN 50MG TAB Defer to primary care provider To be mailed . Please review and renew if appropriate. *This note was generated by [facility] Customer [facility]. If you have any questions or need assistance, do not contact this author. Please refer all questions to your local, on-site pharmacy departments. /james/ RAJIV DENNISON Signed: 09/27/2024 14:21 Receipt Acknowledged By: 09/27/2024 16:01 /james/ ZURI GAMBOA D.O. PHYSICIAN 09/27/2024 14:32 /james/ LARON MOMIN, RN REGISTERED NURSE RAJIV DENNISON [facility]
== END 2025-05-05 14:19 | disposition home or self-care (01) ==
LOC: HO.XRAY 14:18
PROVIDERS: PCP Internal Medicine Medical Oncology; Visit Provider Internal Medicine Medical Oncology
DX: M25.562 Pain in left knee (principal); S89.92XA Unspecified injury of left lower leg, initial encounter
CPT/HCPCS: 73562; 73610

== ENCOUNTER → 2025-05-05 14:35 | Outpatient (BNV) | payer OTHER, SELFPAY | PROVIDERS: PCP Internal Medicine Medical Oncology; Visit Provider Radiology Diagnostic Radiology | DX: M25.562 Pain in left knee (principal); M25.572 Pain in left ankle and joints of left foot | CPT/HCPCS: 73562; 73610 ==

== ENCOUNTER 2025-05-08 07:52 | Outpatient (REF) | payer OTHER, SELFPAY ==
--- NOTE | ~2025-05-08 | XR_ITS ---
CLINICAL HISTORY: M25.572 - Pain in left ankle and joints of left foot 3 view left ankle Comparison: CR/SR - XR ANKLE LT MIN 3V - 05/05/25 14:45 EDT Findings: Soft tissue swelling over the lateral malleolus with similar small osseous fragment of the tip of the distal fibula possibly a chronic ossicle versus small fracture. No other findings concerning for fracture. No dislocation. No ankle effusion. No radiopaque foreign body. IMPRESSION: 1. Small osseous fragment at distal fibular tip with lateral malleolar soft tissue swelling, possibly representing avulsion fracture versus chronic ossicle. This document has been electronically signed by: Orlando Dailey MD on 05/08/2025 20:08:41
== END 2025-05-08 07:53 | disposition home or self-care (01) ==
LOC: HO.HOSX 07:52
DX: M25.572 Pain in left ankle and joints of left foot (principal); S82.892A Other fracture of left lower leg, initial encounter for closed fracture; X58.XXXA Exposure to other specified factors, initial encounter; Y93.9 Activity, unspecified; Y92.9 Unspecified place or not applicable; Y99.9 Unspecified external cause status
CPT/HCPCS: 73610

== ENCOUNTER 2025-05-08 07:54 | Outpatient (AMB) | payer OTHER, SELFPAY ==
[2025-05-08 08:03] VITALS: BMI 34.0
--- NOTE | 2025-05-08 08:03 | A.OFFVIS_ITS ---
Vital Signs 05/08/25 08:03 Height 5 ft 7 in Weight 217 lb BMI 34.0 Intake Visit Reasons: UC f/u LT ankle fx Intake Note: Dustin is a 59 year old male who presents today for a new patient visit for complaints of left ankle and left knee pain. Patient reports that the injury happened on 05/02/25 at home. He states that he was in his yard and stepped over a puddle and went down on the left knee and felt a pop . Patient was seen on 05/05/25 at his PCP office, DR. Ramos sent him to get X rays of the Left knee and ankle at [facility] [place] . Patient stated that he used a lidocaine patch, Tylenol and ice which is not helping with the pain. Allergies Egtogbh-MYL-FpY Reductase Inhibitor [PTCOVZY-YIO-BMF REDUCTASE INHIBITOR] Allergy (Severe, Verified 05/08/25 08:14) SEVERE HIVES statins Allergy (Unknown, Uncoded 05/08/25 08:14) hives HPI HPI UC f/u LT ankle fx: Details: Dustin is a 59 year old male who presents today for a new patient visit for complaints of left ankle and left knee pain. Patient reports that the injury hap pened on 05/02/25 at home. He states that he was in his yard and stepped over a puddle and went down on the left knee and felt a pop . Patient was seen on 05/05/25 at his PCP office, DR. Ramos sent him to get X rays of the Left knee and ankle at [facility] [place] . Patient stated that he used a lidocaine patch, Tylenol and ice which is not helping with the pain. [facility] Medical History Snoring Hypersomnia Dislocation of right shoulder joint Low back pain Surgical History S/P surgery for recurrent dislocation of shoulder Status post discectomy for herniated nucleus pulposus History of surgical removal of ganglion cyst H/O colonoscopy History of carpal tunnel surgery S/P left knee arthroscopy Family History Mother Diabetes Hyperlipidemia Hypertension Father Alcohol abuse Social History Patient Tobacco Use Status: Never used Tobacco Current occupational status: retired Current occupation: rt hand dominant Physical Exam Vital Signs: BMI result Body Mass Index 34.0 Office Procedures AMB Fracture Care Fracture Billing Code: Fracture Billing Code Assessment & Plan Assessment & Plan (1) Avulsion fracture of left ankle: Code(s): S82.892A - Other fracture of left lower leg, initial encounter for closed fracture Category: Medical (2) Left knee pain: Code(s): M25.562 - Pain in left knee Category: Medical Plan History of Present Illness The patient is a 59-year-old male presenting with left ankle and left knee pain following a fall on January 30. The incident occurred while attempting to step over a puddle, resulting in a rapid change in position of the patient's left leg and subsequent fall. He experienced a popping sound in the left knee. Though he deferred seeking immediate care, x-rays later revealed an avulsion fracture of the lateral malleolus. The patient reports tenderness and noticeable swelling in the affected ankle. His left knee showed pain on extension, notably over the quadriceps tendon and MCL, suggesting a sprain. X-rays indicated chondrocalcinosis, a chronic condition unrelated to the fall. 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 Review of Systems - Musculoskeletal: Reports right ankle pain; Reports left knee pain Systems reviewed and are negative except as per HPI and below Physical Exam - Musculoskeletal- - left ankle: Lateral malleolus of left ankle Tenderness and swelling at the lateral malleolus, limited dorsiflexion due to pain, full plantar flexion, pain on passive inversion. - Left knee- Tenderness over the quadriceps and medial collateral ligament, full extension with pain noted With full extension, primarily on the medial aspect of the knee Results - Imaging: - Ankle X-rays: Avulsion fracture of the lateral malleolus. - Knee X-rays: Chondrocalcinosis. Procedure Plan The avulsion fracture of the lateral malleolus is managed by weight-bearing as tolerated while using a tall boot for support. The MCL sprain is treated conservatively with a knee sleeve, ice, rest, and non-steroidal anti- inflammatory drugs (NSAIDs). It is important to limit activity prompting prolonged standing, and I provided a work excuse note. Follow-up in 2-3 weeks will reassess healing, with consideration for physical therapy depending on progress. The incidental chondrocalcinosis in the knee is noted without current intervention. Patient was informed and verbally consented to the use of an ambient scribe for clinic note documentation during this visit. Discussion Notes In our discussions, I confirmed the diagnosis of an avulsion fracture of the lateral malleolus and a sprain of the MCL without a complete tear. The ankle will be managed with a boot, and the knee with a conservative approach. The patient was informed about the non-severity of the fracture and the sprain treatment. I advised the patient on the use of NSAIDs and suggested avoidance of long periods of standing to help reduce the symptoms. Follow-up visits are planned to ensure proper healing and evaluate the necessity for any ongoing therapies. Potential risks and benefits of the current management approach were clearly conveyed, and the patient expressed understanding and agreement with the plan. Patient Instructions - Wear the prescribed boot when weight-bearing - Use a knee sleeve for additional support. - Take Tylenol or ibuprofen for pain as needed. - Rest the affected areas and use ice and elevation to help reduce swelling. - Avoid prolonged standing. - Follow up in 2-3 weeks for reassessment. - Obtain a knee sleeve from a local pharmacy. - Bring the documentation to the help desk intern for scheduling follow-up appointments. Orders: Orders XR ankle LT min 3V Today M25.572 - Pain in left ankle and joints of left foot Coding Level of Care Code New Pt Level 3 (07255) Diagnoses Avulsion fracture of left ankle S82.892A Left knee pain M25.562 CPT Codes Fracture Care - Fracture Billing Code: Fracture Billing Code ([id number])
== END 2025-05-08 08:39 | disposition home or self-care (01) ==
PROVIDERS: PCP Internal Medicine Medical Oncology
DX: S82.892A Other fracture of left lower leg, initial encounter for closed fracture (principal); M25.562 Pain in left knee
CPT/HCPCS: 99203

== ENCOUNTER → 2025-05-08 07:56 | Outpatient (BNV) | payer OTHER, SELFPAY | PROVIDERS: Visit Provider Radiology Diagnostic Radiology | DX: M25.572 Pain in left ankle and joints of left foot (principal) | CPT/HCPCS: 73610 ==

== ENCOUNTER 2025-05-29 07:45 | Outpatient (REF) | payer OTHER, SELFPAY ==
--- OUTSIDE RECORDS SUMMARY | 2024-11-19 05:15 | XMS_ITS ---
Author Organization Rusty Ramos III, MD Address [address] [facility] [place] [address] Care Team Providers Care Bsa/Aml Compliance Officer Name Role Phone [facility] ider Unavailable Rusty Ramos Unavailable [phone] Allergies Allergen (clinical drug ingredient) Drug/Non Drug Allergy documented on EMR Reaction Allergy Type Onset Date Status Substance with 6-pceuhus-3-methylgluta ryl-coenzyme A reductase inhibitor mechanism of action (substance) Statins hives Drug Allergy Active REASON FOR VISIT 1 cm anal lesion, Obesity, Cervical radiculopathy, Ataxia, Lumbar radiculopathy, Benign prostatic hypertrophy Medications Medication SIG (Take, Route, Frequency, Duration) Notes Start Date End Date Status Ezetimibe 10 MG Oral Acti ve Triamcinolone Acetonide 0.1 % 1 application Externally Two times a day 11/05/2024 Active Losartan Potassium 50 MG Oral Active Social [...] Never (0 point) Points 1 Interpretation Negative Vital Signs Temperature 98.1 degrees Fahrenheit 11/19/20 Blood pressure systolic 135 mm Hg 11/19/20 Blood pressure diastolic 80 mm Hg 024 Heart Rate 79 /min 11/19/2024 Height 67 in 11/19/2024 Weight 219 lbs 11/19/2024 BMI 34.3 kg/m2 11/19/2024 Encounters Encounter Location Date Provider Diagnosis Rusty Ramos III, MD [address] [place] [address] DR [place]KS, [place]YOTI [id number] 11/19/2024 Rusty Ramos Mass of anus K62.89 ; Obesity (BMI 30.0-34.9) E66.9 ; GERD without esophagitis K21.9 ; Degenerative disc disease at L5-S1 level M51.36 ; Allergy to statin medication Z88.8 and Cervical radiculopathy M54.12 Assessments Encounter Date Diagnosis (ICD Code) Assessment Notes Treat ment Notes Treatment Clinical Notes 11/19/2024 Mass of anus (ICD-10 - K62.89) Upon inspection today the lesion has resolved 11/19/2024 Obesity (BMI 30.0-34.9) (ICD-10 - E66.9) His body mass index is stable at 33.3. He has gained 3 pounds. We discussed diet and nutrition. We made a plan for him to lose weight at a rate of one half of a pound per week. A diet restricted in fat calories and sodium combined with regular physical activity. 11/19/2024 GERD without esophagitis (ICD-10 - K21.9) His reflux symptoms are well controlled with omeprazole and antacids. No change in his regimen was needed today. 11/19/2024 Degenerative disc disease at L5-S1 level (ICD-10 - M51.36) He continues to have intermittent pain in his low back that radiates down his leg. He is avoiding heavy lifting. I have recommended muscle strengthening physical therapy and regular follow-up. 11/19/2024 Allergy to statin medication (ICD-10 - Z88.8) I strongly recommended a low animal fat diet and weight loss. I recommended he take niacin once a day. 11/19/2024 Cervical radiculopathy (ICD-10 - M54.12) His neck pain has resolved and he will avoid heavy lifting. Plan Of Treatment Medication Medication Name Sig Start Date Stop Date Notes Ezetimibe 10 MG Oral Triamcinolone Acetonide 0.1 % 1 applicat ion Externally Two times a day 11/05/2024 Losartan Potassium 50 MG Oral Next Appt Details Follow Up: April 27, Reason: Follow-up after [place] trip Provider Name:Rusty Ramos, 07/03/2025 09:45:00 AM, [address] [place] [address] [address], [place], [address], Provider Name:Rusty Ramos, 11/06/2025 10:00:00 AM, [address] [place] [address] [address], [place], [address], Progress Notes * MICKY DustinDOB:1965 (59 yo M)Acc No.[id number]:11/19/2024 Progress Notes Patient: Dustin STATON Provider: Chirag Ramos MD :1965 A ge:59 Y S ex:Male Date:11/19/2024 Address:[address] [place] [address] GILMAR Osborne [id number] Pcp:[facility] enter Subjective: * Chief Complaints: * 1 cm anal lesionObesityCervical radiculopathyAtaxiaLumbar radiculopathyBenign prostatic hypertrophy * HPI: C OVID-19 Screening: Questions H ave you had any new onset fever, chills, cough, congestion, sore throat, shortness of breath, muscle aches? N o * : The patient, a 59-year-old male, presented with an anal lesion , possibly a hernia, which had been examined by a surgeon. The surgeon had prescribed medication to reduce the growth, which the patient reported appeared to be working. The patient had an appointment scheduled with the surgeon on the to assess the progress. The patient also mentioned feeling like the growth was shrinking, which was a positive sign. The doctor examined the growth and agreed that it seemed to be improving. The patient had been following the doctor's instructions and applying the medication twice a day. The patient also expressed fear of the growth being a melanoma, but the doctor reassured him that it was important to check these things out. * ROS: G eneral/Constitutional: pain L umbar spine, Neck. C hills d enies. F atigue a dmits. F ever d enies. E NT: Decreased hearing d enies. R espiratory: Cough d enies. C ardiovascular: Chest pain with exertion d enies. D yspnea on exertion?denies. S hortness of breath d enies. G astrointestinal: Constipation d enies. D ecreased appetite d enies.?Diarrhea d enies. H eartburn d enies. N ausea d enies. R ectal bleeding?denies. V omiting d enies. H ematology: bruising d enies. p etechiae d enies. S wollen glands n one have been noted. G enitourinary: Frequent urination o nce a night. M usculoskeletal: Muscle aches d enies. P ainful joints d enies. S ciatica d enies. W eakness d enies. S kin: Itching d enies. R rocío d enies. S kin lesion(s)?denies. N eurologic: Difficulty speaking d enies. D izziness d enies.?Headache d enies. L ow back pain t hat is chronic. P sychiatric: Depressed mood d enies. * Medical History: * Surgical History: L knee arthroscopic surgery L great toe crushed with workout R shoulder repair re: dislocation 2008bilateral carpal tunnel surgery 2017colonoscopy for hematochezia, age 38, negative findings [id number] herniated disk removal 11/2019left and right trigger finger surgery 08/2021Ganglion cyst removed from finger eft hand [facility]y Surgery 04/2023No history * Hospitalization/Major Diagno stic Procedure: N o history * Family History: F ather: alive 78 yrs. M other: alive 75 yrs, diagnosed with Hyperlipidemia, DM, HTN. C hildren: alive. S iblings: alive. 2 brother(s) , 1 sister(s) - healthy. 2 son(s) , 1 daughter(s) - healthy. . He has 2 brothers and 1 sister who are alive and well. Both of his parents are alive. He has 3 children, one of whom is adopted and one of whom has allergies to Peanuts. He has no personal or family history of sickle cell trait. * Social History: T obacco Use: T obacco Use/Smoking P atient is a n onsmoker A dditional Findings: Tobacco Non-User A ggressive non-smoker Tobacco Control (Standard) T obacco use: N onsmoker A dditional Findings: Tobacco non-user A ggressive nonsmoker D rugs/Alcohol: D rugs H ave you used drugs other than those for medical reasons in the past 12 months? N o M iscellaneous: D omestic violence: no. Marital status: . D rug/Alcohol: A MEL-C (Standard) D id you have a drink containing alcohol in the past year? Y es H ow often did you have six or more drinks on one occasion in the past year? L ess than monthly (1 point) H ow many drinks did you have on a typical day when you were drinking in the past year? 1 or 2 drinks (0 point) H ow often did you have a drink containing alcohol in the past year? N ever (0 point) P oints 1 I nterpretation N egtio osborne was born in [place], [place] and came to [facility] at the age of 8. He has been to Eunice for 35 years and they have 3 children, Kylah 35, Dustin 33 and Tristian, who is adopted,. 16. They have 5 healthy grandchildren. 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 His only toxic exposure was to chemicals found in illegal methamphetamine laboratories. The patient plans to go to [place] once cleared by the surgeon. The patient was born in [place] and moved to the current location at a young age. * Medications: T akingLosartan Potassium 50 MG Tablet Oral Ezetimibe 10 MG Tablet Oral Triamcinolone Acetonide 0.1 % Cream 1 application Externally Two times a day Medication List reviewed and reconciled with the patientTaking Losartan Potassium 50 MG Tablet Oral Taking Ezetimibe 10 MG Tablet Oral Taking Triamcinolone Acetonide 0.1 % Cream 1 application Externally Two times a day Medication List reviewed and reconciled with the patient * Allergies: S tatins: hivesno[Allergies Verified] Objective: * Vitals: H t: 67, Wt: 219, BMI:34.3, BP: 135/80, HR: 79, Temp: 98.1, Wt-k.34. * P ast Orders: Lab:Prostate Specific Antige n * Collection Date 11/01/2024 05/15/2023 08/29/2022 Collection Time 07:17 AM 07:42 AM 06:57 AM Order Date 11/01/2024 05/15/2023 08/29/2022 Prostate Specific Antigen 3.72 (Ref Range: <0.05-4.0 ng/mL) 3.00 (Ref Range: <0.05-4.0 ng/mL) 2.43 (Ref Range: <0.05-4.0 ng/mL) * Lab:Lipid Panel * Collection Date 11/01/2024 05/15/2023 08/29/2022 Collection Time 07:17 AM 07:42 AM 06:57 AM Order Date 11/01/2024 05/15/2023 08/29/2022 Triglycerides 158 H (Ref Range: <150 mg/dL) 132 (Ref Range: mg/dL) 180 (Ref Range: mg/dL) Cholesterol 263 H (Ref Range: <200 mg/dL) 295 (Ref Range: mg/dL) 278 (Ref Range: mg/dL) LDL Cholesterol Calculated 177 H (Ref Range: <100 mg/dL) 220 (Ref Range: mg/dl) 190 (Ref Range: mg/dl) HDL Cholesterol 55 (Ref Range: >40 mg/dL) 49 (Ref Range: mg/dL) 52 (Ref Range: mg/dL) * Lab:Comprehensive [place]. Pane l Fast * Collection Date 11/01/2024 05/15/2023 08/29/2022 Collection Time 07:17 AM 07:42 AM 06:57 AM Order Date 11/01/2024 05/15/2023 08/29/2022 Sodium 143 (Ref Range: 135-145 mmol/L) 143 (Ref Range: 135-145 mmol/L) 142 (Ref Range: 135-145 mmol/L) Bilirubin Total 1.3 H (Ref Range: 0.0-1.0 mg/dL) 1.3 H (Ref Range: 0.0-1.0 mg/dL) 0.8 (Ref Range: [...] Urea Nitrogen 13 (Ref Range: 9-16 mg/dL) 17 H (Ref Range: 9-16 mg/dL) 16 (Ref Range: 9-16 mg/dL) Creatinine 1.31 (Ref Range: 0.5-1.4 mg/dL) 1.37 (Ref Range: 0.5-1.4 mg/dL) 1.25 (Ref Range: 0.5-1.4 mg/dL) Estimated Glomerular Filt Rate 56 54 60 Glucose Fasting 108 H (Ref Range: 60-99 mg/dL) 102 H (Ref Range: 60-99 mg/dL) 96 (Ref Range: 60-99 mg/dL) Calcium 10.3 H (Ref Range: 8.4-10.2 mg/dL) 9.9 (Ref Range: 8.4-10.2 mg/dL) 9.4 (Ref Range: 8.4-10.2 mg/dL) * Lab:Complete Blood Count Aut o Diff * [...] (Ref Range: 160-400 X10*3/uL) Mean Platelet Volume 9.3 L (Ref Range: 9.4-12.4 fL) 9.2 L (Ref Range: 9.4-12.4 fL) 9.3 L (Ref Range: 9.4-12.4 fL) Neutrophils Percent Auto 50.1 (Ref Range: 45-73 %) 44.5 L (Ref Range: 45-73 %) 44.3 L (Ref Range: 45-73 %) Imm Gran Pct Auto 0.3 (Ref Range: 0.0-0.4 %) 0.2 (Ref Range: 0.0-0.4 %) 0.2 (Ref Range: 0.0-0.4 %) Lymphocytes Percent Auto 36.8 (Ref Range: 20-40 %) 42.9 H (Ref Range: 20-40 %) 42.8 H (Ref Range: 20-40 %) Monocytes Percent Auto [...] X10*3/uL) 0.000 (Ref Range: 0.0-0.012 X10*3/uL) * Lab:URINE DIP STICK * Collection Date 11/05/2024 11/02/2023 09/01/2021 Order Date 11/05/2024 11/02/2023 09/01/2021 SG 1.015 (Ref Range: 1.005 - 1.025) 1.005 (Ref Range: 1.005 - 1.025) 1.020 pH 5.0 (Ref Range: 5.0 - 9.0) 5.0 (Ref Range: 5.0 - 9.0) 5 CHRA Negative (Ref Range: Negative -) Negative (Ref [...] neg Menstrating NR NR n/a * Examination: G eneral Examination: GENERAL APPEARANCE: p leasant, well nourished, well developed, in no acute distress, calm and relaxed, obese, man. HEAD: a traumatic, normocephalic. EYES: e kelechi, perrla, anicteric, conjugate. EARS: n ormal. NOSE: s eptum intact. ORAL CAVITY: n ormal, unremarkable. NECK/THYROID: n o jugular venous distention, no carotid bruit, thyroid normal. LYMPH NODES: n o enlarged lymph nodes,spleen normal. SKIN: n o suspicious lesions, anicteric. HEART: n o clicks, gallops, murmurs, or rubs, regular rhythm, S1, S2 normal, no s3, or vascular bruits. LUNGS: c lear to auscultation . BREASTS: no masses palpable bilaterally. ABDOMEN: b owel sounds normal, no ascites, no organomegaly, no mass, centripital obesity. RECTAL EXAM: T he 1 cm hard white lesion has resolved. MUSCULOSKELETAL: e xtremities unremarkable, no clubbing, cyanosis or edema, Well developed musculature. PERIPHERAL PULSES: n ormal. NEUROLOGIC: a lert and oriented, cranial nerves 2-12 grossly intact, deep tendon reflexes 2+ symmetrical, motor strength normal upper and lower extremities, sensory exam intact. PSYCH: a lert, oriented. - : [facility] Examination - The doctor examined the growth and agreed that it seemed to be improving. Assessment: * Assessment: 1. O besity (BMI 30.0-34.9) - E66.9 (Primary) N otes :His body mass index is stable at 33.3. He has gained 3 pounds. W e discussed diet and nutrition. We made a plan for him to lose weight at a rate of one half of a pound per week. A diet restricted in fat calories and sodium combined with regular physical activity. 2 . M ass of anus - K62.89 N otes :Upon inspection today the lesion has resolved 3 . G ERD without esophagitis - K21.9 N otes :His reflux symptoms are well controlled with omeprazole and antacids. No change in his regimen was needed today. 4 . D egenerative disc disease at L5-S1 level - M51.36 N otes :He continues to have intermittent pain in his low back that radiates down his leg. He is avoiding heavy lifting. I have recommended muscle strengthening physical therapy and regular follow-up. 5 . A llergy to statin medication - Z88.8 N otes :I strongly recommended a low animal fat diet and weight loss. I recommended he take niacin once a day. 6 . C ervical radiculopathy - M54.12 N otes :His neck pain has resolved and he will avoid heavy lifting. Plan: * Treatment: * Procedure Codes: * Preventive Medicine: Counseling: C are goal follow-up plan: Counseling for abnormal BMI given Y es Above Normal BMI Follow-up D ietary management education, guidance, and counseling, Dietary needs education, Exercise promotion: strength training, Exercise promotion: stretching, Feeding regime, Giving encouragement to exercise, Lifestyle education regarding diet, Nutrition / feeding management, Nutrition therapy, Prescribed activity/exercise education, Prescribed diet education, Prescribed dietary intake, Special diet education, Weight monitoring , Intervention, Order not done: Medical or Other reason not done * Follow Up: Wilfredo saravia 1st (Reason: Follow-up after [place] trip) * Images: * Sign off status: Completed true * Provider: Chirag Ramos MD Date: 01/20/2024 Generated for Eamon aleman/Jeremiah/Barbaraitting on: 0 05/29/2025 07:46 AM EDT History and Physical Notes * HPI (History of Present Illness) Category Sub-Category Detail Notes COVID-19 Screening Questions Have you had any new onset fever, chills, cough, congestion, sore throat, shortness of breath, muscle aches?: No Examination Category Sub-Category Detail Notes General Examination GENERAL APPEARANCE: pleasant , well nourished, well developed, in no acute distress, calm and relaxed, obese, man HEAD: atraumatic, normocep halic EYES: eomi, [...] unremark able, no clubbing, cyanosis or edema, Well developed musculature LYMPH NODES: no enlarged lymph no ajay,spleen normal RECTAL EXAM: The 1 cm hard white lesion has resolved PSYCH: alert, oriented ORAL CAVITY: normal, unremarkable
--- NOTE | ~2025-05-29 | XR_ITS ---
CLINICAL HISTORY: M25.572 - Pain in left ankle and joints of left foot 3 view left ankle Comparison: 05/08/2025 Findings: No acute fractures. Ankle mortise intact. No significant arthritic change or erosions. No ankle effusion. No radiopaque foreign body. IMPRESSION: 1. No acute findings. This document has been electronically signed by: Mike Mullins MD on 05/30/2025 08:53:15
--- OUTSIDE RECORDS SUMMARY | 2025-05-29 07:47 | XMS_ITS | Patient Health Record ---
Author Organization [facility] Address [address] [place] [address] Care Team Providers Care Lap Grinder Name Role Phone Remy Crane Primary Care Provider Zhang Alan Jr Unavailable Reason For Referral No Information Plan Of Treatment No Information Insurance Providers Payer Name Payer Address Payer Phone Subscriber Number Group Number Insured Name Patient Relationship to Insured Coverage Start Date Coverage End Date [facility] [address] [place] [place] [phone] [id number] BISHNU PULIDO Self - patient is the insured
== END 2025-05-29 07:46 | disposition home or self-care (01) ==
LOC: HO.HOSX 07:45
DX: M25.572 Pain in left ankle and joints of left foot (principal)
CPT/HCPCS: 73610

== ENCOUNTER → 2025-05-29 07:52 | Outpatient (BNV) | payer OTHER, SELFPAY | PROVIDERS: Visit Provider Specialist | DX: M25.572 Pain in left ankle and joints of left foot (principal) | CPT/HCPCS: 73610 ==

== ENCOUNTER 2025-05-29 08:19 | Outpatient (AMB) | payer OTHER, SELFPAY ==
--- NOTE | 2025-05-29 08:37 | MHC.OFFVIS ---
Vital Signs 05/29/25 08:40 Height 5 ft 7 in Weight 217 lb BMI 34.0 Intake Visit Reasons: OV-Left Ankle and Left Knee Pain w/ Xray Intake Note: Dustin is a 59 year old male who presents today for a follow up visit for his avulsion fracture of left ankle and left knee pain, DOI: 05/02/25. At his last visit a boot for weight bearing was provided and a knee sleeve from a local pharmacy for stability was recommended. Patient reports his left knee pain is now almost nothing. Expresses improvement in stability. He states when he attempts to roll his foot when walking with out the boot fajardo has some slight pain but none with the boot. Allergies Puuamwu-FED-BeK Reductase Inhibitor (FBQNAYX-VOJ-NGR REDUCTASE INHIBITOR) Allergy (Severe, Verified 05/29/25 08:40) SEVERE HIVES statins Allergy (Unknown, Uncoded 05/29/25 08:40) hives HPI HPI OV-Left Ankle and Left Knee Pain w/ Xray: Details: Dustin is a 59 year old male who presents today for a follow up visit for his avulsion fracture of left ankle and left knee pain, DOI: 05/02/25. At his last visit a boot for weight bearing was provided and a knee sleeve from a local pharmacy for stability was recommended. Patient reports his left knee pain is now almost nothing. Expresses improvement in stability. He states when he attempts to roll his foot when walking with out the boot fajardo has some slight pain but none with the boot. [facility] Medical History Snoring Hypersomnia Dislocation of right shoulder joint Low back pain Surgical History S/P surgery for recurrent dislocation of shoulder Status post discectomy for herniated nucleus pulposus History of surgical removal of ganglion cyst H/O colonoscopy History of carpal tunnel surgery S/P left knee arthroscopy Family History Mother Diabetes Hyperlipidemia Hypertension Father Alcohol abuse Social History Patient Tobacco Use Status: Never used Tobacco Current occupational status: retired Current occupation: rt hand dominant Review of Systems Const All systems reviewed & are unremarkable except as noted in HPI and below Physical Exam Vital Signs: BMI result Body Mass Index 34.0 Extrem Other: Patient's left ankle normal to inspection No erythema, ecchymosis, edema noted No lacerations, abrasions, open areas No evidence of infection Patient reports no tenderness to palpation of the lateral malleolus, medial malleolus, Achilles tendon, or elsewhere in the left foot and ankle Dorsiflexion and plantar flexion full and intact Patient is able to invert and jarod the left foot and ankle fully, reports only minor discomfort with inversion Distal sensation intact Capillary refill brisk Results Reviewed Results Reviewed: X-rays obtained in the office today and independently reviewed by me, Carlos Shearer PA-C, demonstrate minimally displaced avulsion fracture of the lateral malleolus of the left ankle. Assessment & Plan Assessment & Plan (1) Avulsion fracture of left ankle: Code(s): S82.892A - Other fracture of left lower leg, initial encounter for closed fracture Category: Medical Plan 1. Left lateral malleolus avulsion fracture Date of injury 01/30/2025 Patient is educated about this condition Patient is educated about the typical recovery course At this time, patient is removed from the boot he has been wearing Patient is given a lace-up ankle brace to be worn for the next 3-4 weeks No PT necessary, patient has full range of motion and no pain Patient is amenable to this plan Follow-up as needed Orders: Orders XR ankle LT min 3V Today M25.572 - Pain in left ankle and joints of left foot Coding Level of Care Code Global (94626) Diagnoses Avulsion fracture of left ankle S82.892A
[2025-05-29 08:40] VITALS: BMI 34.0
== END 2025-05-29 08:51 | disposition home or self-care (01) ==
LOC: HO.HOS 08:19
PROVIDERS: PCP Internal Medicine Medical Oncology
DX: S82.892A Other fracture of left lower leg, initial encounter for closed fracture (principal)
CPT/HCPCS: 99213

== ENCOUNTER 2025-11-07 07:40 | Outpatient (REF) | payer OTHER, SELFPAY ==
[2025-11-07 07:53] LABS: MANUAL DIFF FLAG NO
[2025-11-07 08:52] LABS: Hematocrit 43.2 % (42.0-52.0); Hemoglobin 13.8 g/dl (14.0-18.0); Imm Gran Abs Auto 0.01 X10*3/uL (0.00-0.03); Imm Gran Pct Auto 0.2 % (0.0-0.4); Lymphocytes Absolute Auto 2.1 X10*3/uL (1.2-4.9); Mean Corpuscular HGB Conc 31.9 g/dl (31.0-36.0); Mean Corpuscular Hemoglobin 29.8 pg (27.0-33.0); Mean Corpuscular Volume 93.3 fL (80.0-98.0); NRBC Abs Auto 0.000 X10*3/uL (0.0-0.012); NRBC Pct Auto 0.0 /100WBC (0.0-0.2); Platelet Count 276 X10*3/uL (160-400); Red Blood Count 4.63 X10*6/uL (4.60-5.80); White Blood Count 5.0 X10*3/uL (4.8-10.8)
[2025-11-07 09:30] LABS: Alanine Aminotransferase 28 U/L (0-40); Albumin Level 4.8 g/dL (3.5-5.0); Alkaline Phosphatase 66 U/L (39-117); Anion Gap 9 (12-20); Aspartate Amino Transferase 26 U/L (5-37); Blood Urea Nitrogen 16 mg/dL (9-16); Calcium 9.7 mg/dL (8.4-10.2); Carbon Dioxide 27 mmol/L (22-29); Chloride 110 mmol/L (96-108); Cholesterol 247 mg/dL (<200); Estimated Glomerular Filt Rate 54; HDL Cholesterol 59 mg/dL (>40); Potassium 3.9 mmol/L (3.3-5.1); Sodium 142 mmol/L (135-145); Total Protein 7.9 g/dL (6.5-8.0); Triglycerides 110 mg/dL (<150)
[2025-11-07 09:53] LABS: Prostate Specific Antigen 4.08 ng/mL (<0.05-4.0)
== END 2025-11-07 07:41 | disposition home or self-care (01) ==
LOC: HO.LAB 07:40
PROVIDERS: PCP Internal Medicine Medical Oncology; Visit Provider Internal Medicine Medical Oncology
DX: Z00.00 Encounter for general adult medical examination without abnormal findings (principal); N40.0 Benign prostatic hyperplasia without lower urinary tract symptoms; E78.2 Mixed hyperlipidemia; E66.9 Obesity, unspecified; Z12.5 Encounter for screening for malignant neoplasm of prostate
CPT/HCPCS: 36415; 80053; 80061; 84153; 85025